=== PATIENT | male | born 1940 | race Caucasian/White ===

== ENCOUNTER 2016-03-21 17:37 | Inpatient (IN) | payer MEDICARE, OTHER ==
[~2016-03-21] VITALS: Ht 177.8 cm; Wt 119.0 kg
[2016-03-21 18:23] LABS: BASO # 0.1 x10^3/uL (0.0-0.2); BASO % 1 % (0-3); EOS % 4 % (0-3); HEMATOCRIT 42.9 % (39.0-53.0); HEMOGLOBIN 13.9 g/dL (13.0-17.5); LYMPH # 2.3 x10^3/uL (1.0-4.8); LYMPH % 25 % (24-48); MEAN CORPUSCULAR HEMOGLOBIN 30 pg (25-35); MEAN CORPUSCULAR HGB CONC 32 g/dL (31-37); MEAN CORPUSCULAR VOLUME 93 fL (79-100); MONO % 6 % (0-9); NEUT % 64 % (31-73); PLATELET COUNT 202 x10^3/uL (140-400); RED BLOOD COUNT 4.62 x10^6/uL (4.30-5.70); RED CELL DISTRIBUTION WIDTH 15.5 % (11.5-14.5); WHITE BLOOD COUNT 9.5 x10^3/uL (4.0-11.0)
[2016-03-21 18:33] LABS: CALCIUM 9.5 mg/dL (8.5-10.1); CREATININE 1.9 mg/dL (0.7-1.3); GFR 34.6; POTASSIUM 4.2 mmol/L (3.5-5.1)
[2016-03-21 18:36] LABS: POTASSIUM ISTAT 4.6 mmol/L (3.5-5.0)
[2016-03-21 18:39] LABS: ALBUMIN 3.1 g/dL (3.4-5.0); DIRECT BILIRUBIN 0.1 mg/dL (0.0-0.2); TOTAL BILIRUBIN 0.5 mg/dL (0.2-1.0); TOTAL PROTEIN 7.1 g/dL (6.4-8.2)
[2016-03-21] MEDS ORDERED: ASPIRIN 81 MG TAB.CHEW PO ONE (18:45)
[2016-03-21 18:53] LABS: INR 2.1 (0.8-1.1); PROTHROMBIN TIME PATIENT 22.4 SEC (11.7-14.0)
--- NOTE | 2016-03-21 18:55 | EKG ---
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
[2016-03-21] MEDS ORDERED: MORPHINE SULFATE 2 MG/ML DISP.SYRIN. IV PRN (19:15)
[2016-03-21] MEDS ORDERED: NITROGLYCERIN SUBLINGUAL 0.4 MG BOTTLE OF 25. SL PRN (19:15)
[2016-03-21] MEDS ORDERED: ONDANSETRON PF 4 MG/2 ML VIAL. IV PRN (19:15)
[2016-03-21 20:35] VITALS: BP 120/75
--- NOTE | 2016-03-21 21:05 | PHYS DOC ---
Past Medical History Past Medical History: CHF, Diabetes-Type II, High Cholesterol, Hypertension, Pneumonia Past Surgical History: Other Additional Past Surgical Histo: R LOBECTOMY Alcohol Use: Rarely Drug Use: None Adult General Chief Complaint Chief Complaint: WEAKNESS/GENERALIZED HPI HPI 75-year-old male presenting to the emergency department today with generalized weakness. He reports sitting on the kitchen stool feeling lightheaded and generally weak. He denied pain. He denies chest pain shortness of breath or abdominal pain. He denies focal weakness. Onset today around 1630. Duration constant No alleviating factors Worse with exertion. Review of Systems Review of Systems ROS negative for fevers chills cough neck stiffness. Negative for chest pain or shortness of breath. All other review of systems is negative unless otherwise noted in history of present illness. Current Medications Current Medications Current Medications Medications (Trade) Dose Ordered Sig/Janee Start Time Stop Time Status Last Admin Dose Admin Aspirin (Children'S Aspirin) 324 mg 1X ONCE 03/21/16 18:45 03/21/16 18:46 DC 03/21/16 18:32 324 MG Allergies Allergies Allergies Coded Allergies Type Severity Reaction Last Updated Verified niacin Allergy Intermediate 03/21/16 Yes sildenafil Allergy Intermediate 03/21/16 Yes Physical Exam Physical Exam Constitutional: Well developed, well nourished, no acute distress, non-toxic appearance. HENT: Normocephalic, atraumatic, bilateral external ears normal, oropharynx moist, no oral exudates, nose normal. [] Eyes: PERRLA, EOMI, conjunctiva normal, no discharge. Neck: Normal range of motion, no tenderness, supple, no stridor. [] Cardiovascular:Heart rate regular rhythm, no murmur Lungs & Thorax: Bilateral breath sounds clear to auscultation Abdomen: Bowel sounds normal, soft, no tenderness, no masses, no pulsatile masses. [] Skin: Warm, dry, no erythema, no rash. Back: No tenderness, no CVA tenderness. [] Extremities: No tenderness, no cyanosis, no clubbing, ROM intact, no edema. Neurologic: Alert and oriented X 3, normal motor function, normal sensory function, no focal deficits noted. [] Psychologic: Affect normal, judgement normal, mood normal. Current Patient Data Vital Signs Vital Signs Date Time Temp Pulse Resp B/P Pulse Ox O2 Delivery O2 Flow Rate FiO2 03/21/16 18:57 56 18 136/61 96 Room Air 03/21/16 17:37 97.5 97.5 Lab Values Laboratory Tests Test 03/21/16 18:05 03/21/16 18:17 03/21/16 18:18 White Blood Count 9.5x10^3/uL (4.0-11.0) Red Blood Count 4.62x10^6/uL (4.30-5.70) Hemoglobin 13.9g/dL (13.0-17.5) Hematocrit 42.9% (39.0-53.0) Mean Corpuscular Volume 93fL (79-100) Mean Corpuscular Hemoglobin 30pg (25-35) Mean Corpuscular Hemoglobin Concent 32g/dL (31-37) Red Cell Distribution Width 15.5% (11.5-14.5) H Platelet Count 202x10^3/uL (140-400) Neutrophils (%) (Auto) 64% (31-73) Lymphocytes (%) (Auto) 25% (24-48) Monocytes (%) (Auto) 6% (0-9) Eosinophils (%) (Auto) 4% (0-3) H Basophils (%) (Auto) 1% (0-3) Neutrophils # (Auto) 6.1x10^3uL (1.8-7.7) Lymphocytes # (Auto) 2.3x10^3/uL (1.0-4.8) Monocytes # (Auto) 0.6x10^3/uL (0.0-1.1) Eosinophils # (Auto) 0.4x10^3/uL (0.0-0.7) Basophils # (Auto) 0.1x10^3/uL (0.0-0.2) Prothrombin Time 22.4SEC (11.7-14.0) H Prothrombin Time INR 2.1 (0.8-1.1) H PTT 36SEC (24-38) Sodium Level 143mmol/L (136-145) Potassium Level 4.2mmol/L (3.5-5.1) Chloride Level 105mmol/L (98-107) Carbon Dioxide Level 28mmol/L (21-32) Anion Gap 10 (6-14) 15mmol/L (6-14) H Blood Urea Nitrogen 45mg/dL (8-26) H Creatinine 1.9mg/dL (0.7-1.3) H Estimated GFR (Cockcroft-Gault) 34.6 Glucose Level 153mg/dL (70-99) H 146mg/dL (70-99) H Calcium Level 9.5mg/dL (8.5-10.1) Total Bilirubin 0.5mg/dL (0.2-1.0) Direct Bilirubin 0.1mg/dL (0.0-0.2) Aspartate Amino Transferase (AST) 25U/L (15-37) Alanine Aminotransferase (ALT) 32U/L (16-63) Alkaline Phosphatase 115U/L (46-116) Troponin I Quantitative < 0.017ng/mL (0.000-0.055) ZC-Rzg-A-Type Natriuretic Peptide 675pg/mL (0-449) H Total Protein 7.1g/dL (6.4-8.2) Albumin 3.1g/dL (3.4-5.0) L Lipase 178U/L (73-393) POC Troponin I 0.04ng/ml (<0.08) POC Hemoglobin 15.0g/dL (14-18) POC Hematocrit 44% (37-52) POC Sodium 142mmol/L (135-145) POC Potassium 4.6mmol/L (3.5-5.0) POC Chloride 105mmol/L (98-110) POC Total CO2 27mmol/L (23-32) POC Blood Urea Nitrogen 56mg/dL (8-26) H POC Creatinine 1.8mg/dL (0.5-1.4) H POC Ionized Calcium (Muna) 1.15mmol/L (1.13-1.32) Laboratory Tests 03/21/16 18:05 Laboratory Tests 03/21/16 18:05 03/21/16 18:18 EKG EKG EKG shows left bundle branch block without previous for comparison. Irregularly irregular rhythm suggestive of A. fib. [place] is leftward. Intervals show prolonged QRS. ST segments show repolarization abnormalities within the reference range of normal limits with modified scarbossa criteria. Radiology/Procedures Radiology/Procedures Chest x-ray shows no obvious infiltrate or pneumothorax. Course & Med Decision Making Course & Med Decision Making Pertinent Labs and Imaging studies reviewed. (See chart for details) 75-year-old male presenting the emergency department with generalized weakness. EKG performed shows left bundle branch block without previous for comparison. Upon seeing this EKG I went to evaluate the patient. He denied chest pain shortness of breath or any atypical presentations of acute coronary syndrome. He was well-appearing and not diaphoretic. I paged Dr. Leong at 5:57 PM, we asked to get an old EKG from the OR where he receives healthcare at 1800. Dr. Leong returned our call at 1804 where we discussed the patient's clinical condition. Collectively, without any clinical presentation or signs of ACS in the context of a left bundle branch block with modified scarbossa neg. we felt that the patient's clinical presentation was not suggestive of acute coronary syndrome. The patient was given aspirin. At 1810 the request form for old EKG from the OR was signed by the patient and faxed. At 181 the patient's troponin came back negative. Otherwise the patient's vital signs were unremarkable. Physical exam was unremarkable. Blood work showed normal CBC with a elevated BUN and creatinine. Also elevation in proBNP. The patient was then admitted to our hospital for further evaluation workup and care. I placed a cardiology consultation. Dragon Disclaimer Dragon Disclaimer This electronic medical record was generated, in whole or in part, using a voice recognition dictation system. Departure Departure Impression: Primary Impression: Dehydration Additional Impression: Weakness Disposition: 09 ADMITTED INPATIENT Admitting Physician: Sam Roe Condition: STABLE Referrals: NO PCP (PCP) Problem Qualifiers MY ALEXIS MD Mar 21, 2016 21:05
[2016-03-21] MEDS ORDERED: DEXT4TAB PO (21:46)
[2016-03-21] MEDS ORDERED: ATOR40TA59 PO (21:46)
[2016-03-21] MEDS ORDERED: ALLO100T PO (21:46)
[2016-03-21] MEDS ORDERED: INSU100V13 SQ (21:46)
[2016-03-21] MEDS ORDERED: FURO20TA3 PO (21:46)
[2016-03-21] MEDS ORDERED: INSU100I17 SQ (21:46)
[2016-03-21] MEDS ORDERED: DOCU100C5 PO (21:46)
[2016-03-21] MEDS ORDERED: WARF5TAB7 PO (21:46)
[2016-03-21] MEDS ORDERED: GABA600T2 PO (21:46)
[2016-03-21] MEDS ORDERED: LISI10TA2 PO (21:46)
[2016-03-21] MEDS ORDERED: TAMS0.4C2 PO (21:46)
[2016-03-21] MEDS ORDERED: GABA-586 PO (21:46)
[2016-03-21] MEDS ORDERED: HYDR-2666 PO (21:46)
[2016-03-21] MEDS ORDERED: CARV25TA2 PO (21:46)
[2016-03-21 23:26] VITALS: BP 130/63
[2016-03-22] VITALS (9 sets, daily range): BP systolic 125–192; BP diastolic 54–86
[2016-03-22 01:37] LABS: BASO # 0.1 x10^3/uL (0.0-0.2); BASO % 1 % (0-3); EOS % 2 % (0-3); HEMATOCRIT 42.5 % (39.0-53.0); HEMOGLOBIN 13.6 g/dL (13.0-17.5); LYMPH # 2.5 x10^3/uL (1.0-4.8); LYMPH % 27 % (24-48); MEAN CORPUSCULAR HEMOGLOBIN 30 pg (25-35); MEAN CORPUSCULAR HGB CONC 32 g/dL (31-37); MEAN CORPUSCULAR VOLUME 94 fL (79-100); MONO % 7 % (0-9); NEUT % 64 % (31-73); PLATELET COUNT 194 x10^3/uL (140-400); RED BLOOD COUNT 4.54 x10^6/uL (4.30-5.70); RED CELL DISTRIBUTION WIDTH 15.6 % (11.5-14.5); WHITE BLOOD COUNT 9.5 x10^3/uL (4.0-11.0)
[2016-03-22 01:50] LABS: CREATININE 1.9 mg/dL (0.7-1.3); GFR 34.6; POTASSIUM 4.4 mmol/L (3.5-5.1)
--- NOTE | 2016-03-22 07:38 | RAD ---
EXAM: Chest, single view. HISTORY: Fatigue. COMPARISON: None. FINDINGS: Frontal views of the chest are obtained. There is linear atelectasis or scarring within the right upper lobe. There is bilateral basilar atelectasis. There is no consolidation, effusion or pneumothorax. The heart is upper normal in size for portable technique. IMPRESSION: Suspected linear atelectasis scarring within the right upper lobe and bilateral basilar atelectasis.
--- NOTE | 2016-03-22 09:32 | PDOC2 ---
URIELKELLY GAMBINO Marielena FINAL DRESSING CUTTER 03/22/16 0932: CARDIAC CONSULT DATE OF CONSULT Date of Consult DATE: 03/22/16 TIME: 09:29 REASON FOR CONSULT Reason for Consult: LBBB; weakness REFERRING PHYSICIAN Referring Physician: Dr. Anibal Velez SOURCE Source: Chart review, Patient HISTORY OF PRESENT ILLNESS HISTORY OF PRESENT ILLNESS 75 year old male who normally seeks care @ the [facility] and was treated there a month ago for acute CHF. He is unsure what type of CHF he has. Yesterday was preparing to eat a late brunch when he developed dizziness and weakness and suddenly leaned back in his bar stool. [place] like he would pass out but denies syncope. Previous similar episode on unknown date. Yesterday' s symptoms developed ~ 1630 and had not eaten or drunk liquids all day. Denies associated dyspnea, chest pain, lower extremity edema. Troponin levels have not been consistent with AMI and EKG reported with LBBB. No previous EKGs for comparison. NT-proBNP = 675. No further symptoms overnight. Primary concern now is notifying [facility] of his admission here to avoid denial of payment. Reason for Visit: weakness and LBBB PAST MEDICAL HISTORY Cardiovascular: CHF, HTN, Hyperlipidemia Pulmonary: Pulmonary embolus (with chronic anticoagulation ) CENTRAL NERVOUS SYSTEM: Other ([place] - untreated with CPAP) GI: No pertinent hx Heme/Onc: No pertinent hx Hepatobiliary: No pertinent hx Psych: No pertinent hx Musculoskeletal: Osteoarthritis Rheumatologic: No pertinent hx Infectious disease: No pertinent hx ENT: No pertinent hx Renal/: No pertinent hx Endocrine: Diabetes PAST SURGICAL HISTORY Past Surgical History: Cataract Removal (with IOL), Total knee replacement ( left), Other (right lobectomy after pneumonia) FAMILY HISTORY Family History: Coronary Artery Disease (father of suspected NC; with previous NC) SOCIAL HISTORY Smoke: No ALCOHOL: none Drugs: None Lives: Friends (Natasha, significant other) CURRENT MEDICATIONS CURRENT MEDICATIONS Current Medications Medications (Trade) Dose Ordered Sig/Janee Route PRN Reason Start Time Stop Time Status Last Admin Dose Admin Aspirin (Children'S Aspirin) 324 mg 1X ONCE PO 03/21/16 18:45 03/21/16 18:46 DC 03/21/16 18:32 ALLERGIES ALLERGIES: Coded Allergies: niacin (Verified Allergy, Intermediate, 03/21/16) sildenafil (Verified Allergy, Intermediate, 03/21/16) ROS General: No: Appetite, Chills, Fatigue, Malaise, Night Sweats, Other PSYCHOLOGICAL ROS: YES: Sleep disturbances Eyes: No Blurry vision, No Decreased vision, No Double vision, No Dry eyes, No Excessive tearing, No Eye Pain, No Itchy Eyes, No Loss of vision, No Other, No Photophobia, No Scotomata, No Uses contacts, No Uses glasses HEENT: No: Epistaxis, Heacaches, Hearing change, Nasal congestion, Nasal discharge, Oral lesions, Other, Sinus pain, Sneezing, Snoring, Sore Throat, Tinnitus, Vertigo, Visual Changes, Vocal changes ALLERGY AND IMMUNOLOGY: No: Hives, Insect Bite Sensitivity, Itchy/Watery Eyes, Nasal Congestion, Other, Post Nasal Drip, Seasonal Allergies Hematological and Lymphatic: No: Bleeding Problems, Blood Clots, Blood Transfusions, Brusing, Night Sweats, Other, Pallor, Swollen Lymph Nodes ENDOCRINE: No: Breast Changes, Galactorrhea, Hair Pattern Changes, Hot Flashes , Malaise/lethargy, Mood Swings, Other, Palpitations, Polydipsia/polyuria, Skin Changes, Temperature Intolerance, Unexpected Weight Changes Respiratory: YES: SOB with excertion, No: Cough, Hemoptysis, Orthopnea, Other, Pleuritic Pain, Shortness of breath , Sputum Changes, Stridor, Tachypnea, Wheezing Cardiovascular: No Chest Pain, No Edema, No Lt Headedness, No Orthopnea, No Other, No Palpitations, No Paroxysmal Noc. Dyspnea Gastrointestinal: No Abdominal Pain, No Constipation, No Diarrhea, No Hematochezia, No Melena, No Nausea, No Other, No Vomiting Genitourinary: No Discharge, No Dysuria, No Flank Pain, No Frequency, No Hematuria, No Incontinence, No Other, No Pain, No Retention, No Urgency Musculoskeletal: No Gait Disturbance, No Joint Pain, No Joint Stiffness, No Joint Swelling, No Muscle Pain, No Muscular Weakness, No Other, No Pain In:, No Swelling In: Neurological: Yes Dizziness, Yes Weakness Skin: No Acne, No Dry Skin, No Eczema, No Hair Changes, No Lumps, No Mole Changes, No Mottling, No Nail Changes, No Other, No Pruritus, No Rash, No Skin Lesion Changes PHYSICAL EXAM General: Alert, Oriented X3, Cooperative, No acute distress HEENT: Atraumatic, PERRLA Lungs: Clear to auscultation, Normal air movement Heart: Regular rate, Normal S1, Normal S2, Other (1-2/6 systolic murmur - likely aortic) Abdomen: Normal bowel sounds, Soft Extremities: No edema, Normal pulses Skin: Other (venous stasis changes bilateral LE) Psych/Mental Status: Mental status NL, Mood NL MUSCULOSKELETAL: No deformity VITALS VITALS Vital Signs Date Time Temp Pulse Resp B/P Pulse Ox O2 Delivery O2 Flow Rate FiO2 03/22/16 07:15 Room Air 03/22/16 07:00 98.3 63 20 192/86 94 98.3 LABS Lab: Laboratory Tests Test 03/21/16 18:05 03/21/16 18:17 03/21/16 18:18 03/22/16 01:07 White Blood Count 9.5x10^3/uL (4.0-11.0) 9.5x10^3/uL (4.0-11.0) Red Blood Count 4.62x10^6/uL (4.30-5.70) 4.54x10^6/uL (4.30-5.70) Hemoglobin 13.9g/dL (13.0-17.5) 13.6g/dL (13.0-17.5) Hematocrit 42.9% (39.0-53.0) 42.5% (39.0-53.0) Mean Corpuscular Volume 93fL (79-100) 94fL (79-100) Mean Corpuscular Hemoglobin 30pg (25-35) 30pg (25-35) Mean Corpuscular Hemoglobin Concent 32g/dL (31-37) 32g/dL (31-37) Red Cell Distribution Width 15.5% (11.5-14.5) 15.6% (11.5-14.5) Platelet Count 202x10^3/uL (140-400) 194x10^3/uL (140-400) Neutrophils (%) (Auto) 64% (31-73) 64% (31-73) Lymphocytes (%) (Auto) 25% (24-48) 27% (24-48) Monocytes (%) (Auto) 6% (0-9) 7% (0-9) Eosinophils (%) (Auto) 4% (0-3) 2% (0-3) Basophils (%) (Auto) 1% (0-3) 1% (0-3) Neutrophils # (Auto) 6.1x10^3uL (1.8-7.7) 6.0x10^3uL (1.8-7.7) Lymphocytes # (Auto) 2.3x10^3/uL (1.0-4.8) 2.5x10^3/uL (1.0-4.8) Monocytes # (Auto) 0.6x10^3/uL (0.0-1.1) 0.7x10^3/uL (0.0-1.1) Eosinophils # (Auto) 0.4x10^3/uL (0.0-0.7) 0.2x10^3/uL (0.0-0.7) Basophils # (Auto) 0.1x10^3/uL (0.0-0.2) 0.1x10^3/uL (0.0-0.2) Prothrombin Time 22.4SEC (11.7-14.0) Prothromb Time International Ratio 2.1 (0.8-1.1) Activated Partial Thromboplast Time 36SEC (24-38) Sodium Level 143mmol/L (136-145) 141mmol/L (136-145) Potassium Level 4.2mmol/L (3.5-5.1) 4.4mmol/L (3.5-5.1) Chloride Level 105mmol/L (98-107) 103mmol/L (98-107) Carbon Dioxide Level 28mmol/L (21-32) 29mmol/L (21-32) Anion Gap 10 (6-14) 15mmol/L (6-14) 9 (6-14) Blood Urea Nitrogen 45mg/dL (8-26) 49mg/dL (8-26) Creatinine 1.9mg/dL (0.7-1.3) 1.9mg/dL (0.7-1.3) Estimated GFR (Cockcroft-Gault) 34.6 34.6 Glucose Level 153mg/dL (70-99) 146mg/dL (70-99) 234mg/dL (70-99) Calcium Level 9.5mg/dL (8.5-10.1) 9.0mg/dL (8.5-10.1) Total Bilirubin 0.5mg/dL (0.2-1.0) Direct Bilirubin 0.1mg/dL (0.0-0.2) Aspartate Amino Transf (AST/SGOT) 25U/L (15-37) Alanine Aminotransferase (ALT/SGPT) 32U/L (16-63) Alkaline Phosphatase 115U/L (46-116) Troponin I Quantitative < 0.017ng/mL (0.000-0.055) < 0.017ng/mL (0.000-0.055) AZ-Lgj-T-Type Natriuretic Peptide 675pg/mL (0-449) Total Protein 7.1g/dL (6.4-8.2) Albumin 3.1g/dL (3.4-5.0) Lipase 178U/L (73-393) Bedside Troponin I 0.04ng/ml (<0.08) Bedside Hemoglobin 15.0g/dL (14-18) Bedside Hematocrit 44% (37-52) Bedside Sodium 142mmol/L (135-145) Bedside Potassium 4.6mmol/L (3.5-5.0) Bedside Chloride 105mmol/L (98-110) Bedside Total CO2 27mmol/L (23-32) Bedside Blood Urea Nitrogen 56mg/dL (8-26) Bedside Creatinine 1.8mg/dL (0.5-1.4) Bedside Ionized Calcium (Muna) 1.15mmol/L (1.13-1.32) Test 03/22/16 07:00 03/22/16 07:25 Troponin I Quantitative < 0.017ng/mL (0.000-0.055) Glucose (Fingerstick) 163mg/dL (70-99) IMAGES IMAGES CXR: FINDINGS: Frontal views of the chest are obtained. There is linear atelectasis or scarring within the right upper lobe. There is bilateral basilar atelectasis. There is no consolidation, effusion or pneumothorax. The heart is upper normal in size for portable technique. IMPRESSION: Suspected linear atelectasis scarring within the right upper lobe and bilateral basilar atelectasis. ASSESSMENT/PLAN ASSESSMENT/PLAN 1. weakness and dizziness ? dehydration: BUN = 45; Cr = 1.9 treated with diuretics for CHF and with poor food/fluid intake check orthostatics echo to evaluate LV function request records from [facility] - [facility] 2. LBBB ? new - is so would need further evaluation awaiting records [facility] 3. CHF by history ? diastolic BP currently uncontrolled and will restart BB and ACEI hold diuretics today echo to evaluate LVEF and assess for diastolic dysfunction 4. HTN restart home meds 5. HLD continue home statin therapy will not check FLP until records from [facility] reviewed 6. remote history of pulmonary embolus remains on OAC with warfarin - therapeutic INR 7. IBETH vs CKD elevated BUN/Cr ? related to diuretic therapy Problems: LARRY ENCARNACION MD 03/22/16 1556: CARDIAC CONSULT ALLERGIES ALLERGIES: Coded Allergies: niacin (Verified Allergy, Intermediate, 03/21/16) sildenafil (Verified Allergy, Intermediate, 03/21/16) ASSESSMENT/PLAN ASSESSMENT/PLAN Patient seen and examined. Agree with WASTE OIL PUMPER's assessment and plan. Dizziness and weakness appeared to be secondary to dehydration. Check orthostatics, hold diuretics and continue intravenous fluids. Chronic diastolic heart failure clinically well compensated. We will obtain 2-D echocardiogram to rule out any structural abnormalities. Thank you for your consultation. Problems: KELLY LIZARRAGA APRN Mar 22, 2016 09:32 LARRY ENCARNACION MD Mar 22, 2016 15:56
[2016-03-22] MEDS ORDERED: DOCUSATE SODIUM 100 MG CAPSULE PO PRN (09:45)
[2016-03-22] MEDS ORDERED: HYDROCODONE/APAP 5/325MG TABLET. PO PRN (09:45)
[2016-03-22] MEDS ORDERED: DEXTROSE 4 GM PO PRN (09:45)
[2016-03-22] MEDS ORDERED: DEXTROSE 50% 25 GM / 50ML DISP.SYRIN. IV PRN (10:00)
[2016-03-22] MEDS ORDERED: LISINOPRIL 10 MG TABLET PO SCH (10:00)
[2016-03-22] MEDS: TAMSULOSIN 0.4 MG CAP.ER.24H. PO SCH (10:12)
[2016-03-22] MEDS: LISINOPRIL 10 MG TABLET PO SCH (10:12)
[2016-03-22] MEDS: ALLOPURINOL 100 MG TABLET. PO SCH (10:12)
[2016-03-22] MEDS: GABAPENTIN 300 MG CAPSULE. PO SCH ×2 (10:14→16:06)
[2016-03-22] MEDS: CARVEDILOL 12.5 MG TABLET PO SCH ×2 (10:14→17:09)
[2016-03-22] MEDS: INSULIN ASPART 300 UNITS/3 ML INSULN.PEN SQ SCH ×3 (12:04→21:27)
[2016-03-22] MEDS ORDERED: WARFARIN 5 MG TABLET. PO SCH (16:00)
--- NOTE | 2016-03-22 16:54 | CARD ---
APPROVED REPORT EXAM: Two-dimensional and M-mode echocardiogram with Doppler and color Doppler. Other Information Quality : Fair INDICATION Dizziness and Vertigo Congestive Heart Failure 2D DIMENSIONS RVDd3.3 (2.9-3.5cm)Left Atrium(2D)4.6 (1.6-4.0cm) IVSd1.5 (0.7-1.1cm)Aortic Root(2D)3.0 (2.0-3.7cm) LVDd5.0 (3.9-5.9cm)LVOT Diameter2.1 (1.8-2.4cm) PWd1.2 (0.7-1.1cm)LVDs3.2 (2.5-4.0cm) FS (%) 30.0 %SV78.1 ml LVEF(%)60.0 (>50%) Aortic Valve AoV Peak Russell.271.3cm/sAoV VTI58.2cm AO Peak GR.29.4mmHgLVOT Peak Russell.124.7cm/s LVOT VTI 29.15cmAO Mean GR.18mmHg KAUSHIK (VMAX)1.99ku5PKA (VTI)1.77cm2 AI P 1/2 Cybu712ae Mitral Valve MV E Ghocefyf12.7cm/sMV DECEL [id number] MV A Mzluuxcd466.0cm/sMV MVD317yv E/A Ratio0.9MVA (PHT)2.13cm2 TDI E/Lateral E'18.0E/Medial E'24.0 Tricuspid Valve TR P. Lqthzcxt139nq/sRAP MATIYBQH1utYr TR Peak Gr.81dzQzQSLM83yxXo Pulmonary Vein S1 Zmwhrepo07.3cm/sD2 Tjcovmla62.8cm/s PVa [id number] LEFT VENTRICLE The left ventricle is normal size. There is mild to moderate concentric left ventricular hypertrophy. The left ventricular systolic function is normal. The Ejection Fraction is 55-60%. There is normal L V segmental wall motion. Transmitral Doppler flow pattern is Grade I-abnormal relaxation pattern. RIGHT VENTRICLE The right ventricle is normal size. The right ventricular systolic function is normal. ATRIA The left atrium is mildly dilated. The right atrium size is normal. The interatrial septum is intact with no evidence for an atrial septal defect or patent foramen ovale as noted on 2-D or Doppler imagi ng. AORTIC VALVE The aortic valve is heavily calcified and displays decreased opening. Doppler and Color Flow revealed moderate aortic regurgitation. Calculated aortic valve area is 1.8 cm2 with maximum pressure gradien t of 28 mmHg and mean pressure gradient of 16 mmHg. Doppler and color-flow analysis revealed mild aor tic stenosis. MITRAL VALVE The mitral valve is moderately thickened. There is no evidence of mitral valve prolapse. There is no mitral valve stenosis. Doppler and Color-flow revealed mild mitral regurgitation. TRICUSPID VALVE The tricuspid valve is normal in structure and function. Doppler and Color Flow revealed mild tricusp id regurgitation. There is no pulmonary hypertension. The PA pressure was estimated at 21 mmHg. There is no tricuspid valve stenosis. PULMONIC VALVE The pulmonary valve is normal in structure and function. Doppler and Color Flow revealed no pulmonic valvular regurgitation. There is no pulmonic valvular stenosis. GREAT VESSELS The aortic root is normal in size. The ascending aorta is normal in size. The IVC is normal in size a nd collapses >50% with inspiration. PERICARDIAL EFFUSION There is no evidence of significant pericardial effusion. Critical Notification Critical Value: No <Conclusion> The left ventricular systolic function is normal. The Ejection Fraction is 55-60%. There is normal LV segmental wall motion. Transmitral Doppler flow pattern is Grade I-abnormal relaxation pattern. The left atrium is mildly dilated. Mild aortic stenosis. Moderate aortic regurgitation. Mild mitral regurgitation. Mild tricuspid regurgitation. There is no pulmonary hypertension. The PA pressure was estimated at 21 mmHg. There is no evidence of significant pericardial effusion.
[2016-03-22] MEDS ORDERED: INSULIN DETEMIR 300 UNITS/3 ML INSULN.PEN. SQ SCH (17:00)
[2016-03-22] MEDS ORDERED: ATORVASTATIN CALCIUM 40 MG TABLET. PO SCH (21:00)
[2016-03-22] MEDS ORDERED: GABAPENTIN 300 MG CAPSULE. PO SCH (21:00)
[2016-03-22] MEDS ORDERED: NON FORMULARY ITEM (Carvedilol 1 TAB) PO SCH (21:00)
--- NOTE | 2016-03-22 22:44 | HP ---
ADMIT DATE: 03/22/2016 TIME: 10 a.m. CHIEF COMPLAINT: Generalized weakness, near syncope. HISTORY OF PRESENT ILLNESS: A 75-year-old male patient with prior history of questionable CHF, hypertension, hyperlipidemia, presented to the ER with complaints of near syncope and dizziness. The patient was about to eat his lunch and developed sudden dizziness and also periodic sweating. He denies any chest pain or shortness of breath or syncope; however, he is about to pass out. He admitted that he did not take lot of fluids whole day. His symptoms started around evening ____. The patient was admitted to the hospital nearly [address] [facility] and he was treated for pneumonia and also diagnosed with questionable CHF. PAST MEDICAL HISTORY: Hypertension; hyperlipidemia; pulmonary embolus, on oral anticoagulation; obstructive sleep apnea. PAST SURGICAL HISTORY: Cataract removal, total knee replacement, right lobectomy. FAMILY HISTORY: Coronary artery disease. SOCIAL HISTORY: No smoking, no alcohol, no drug abuse. HOME MEDICATIONS: Reviewed, reconciled. Please see the MRAD. ALLERGIES: NIACIN AND SILDENAFIL. REVIEW OF SYSTEMS: CONSTITUTIONAL: No fever or chills. EYES: No recent vision changes. SKIN: No rash or itching. CARDIOVASCULAR: Dizziness. RESPIRATORY: No shortness of breath, cough. GASTROINTESTINAL: No nausea, vomiting, diarrhea or abdominal pain. NEUROLOGICAL: No headache, paralysis. ENDOCRINOLOGIC: No cold or heat intolerance. GENITOURINARY: No burning with urination, no urgency. MUSCULOSKELETAL: No back pain or joint pain. LYMPHATICS: No enlarged nodes. PSYCHIATRIC: No anxiety or depression. PHYSICAL EXAMINATION: GENERAL: No apparent distress. VITAL SIGNS: Temperature 98.3, pulse 63, respirations ____ blood pressure ____ pulse ox 94. HEENT: Head normocephalic, atraumatic. NECK: Supple. LUNGS: Clear to auscultation. HEART: S1, S2 present, pulses equal in all extremities, no JVD. ABDOMEN: Soft and positive bowel sounds. EXTREMITIES: Varicose veins present bilateral. +1 edema present. NEUROLOGIC: Normal speech and normal tone; alert and oriented. PSYCHIATRIC: Normal affect, normal mood. SKIN: No ulceration. LABORATORY FINDINGS: Sodium 143, potassium 4.2, chloride is 105, carbon dioxide 28, BUN is 45, creatinine 1.9, glucose is 153. Hematology: WBC is 9.5, hemoglobin is 13.9, MCV is 93, platelets 202. IMAGING STUDIES: Chest x-ray: Suspected linear atelectasis, scarring in right upper lobe and bilateral basilar atelectasis. EKG: Could not able to verify the reports. As per ER report, LBBB. ASSESSMENT AND PLAN: 1. Generalized weakness and dizziness, unclear etiology, possible due to dehydration and decreased oral intake. 2. Left bundle branch block on EKG, not sure if new or old. 3. Hypertension, stable. 4. Hyperlipidemia. 5. Oral anticoagulation for chronic pulmonary embolism. 6. Acute kidney injury. PLAN: 1. We will hold patient's Lasix at this time and encourage him to take more oral fluids. 2. Cardiology has been consulted. Trying to obtain records from [facility] especially EKG and other echocardiogram. 3. Also, we will place an order for new echocardiogram today. 4. The patient will get 2 more sets of troponins. 5. The patient is on telemetry. 6. We will start him on oral anticoagulation and pharmacy to monitor his INR, therapeutic dose is 2-3. 7. The patient's creatinine is 1.9 and we will continue to monitor and we will hold Lasix at this time. We will check creatinine and BMP in a.m. 8. ____ hyperglycemia around 234 ____ he is not taking any medications. So, we will continue to monitor. Plan explained to the patient and his at bedside. All questions answered. ELLA BELL MD DR: DEANGELO/bryan JOB#: [id number] / [id number]
[2016-03-23 03:00] VITALS: BP 143/62
[2016-03-23 07:00] VITALS: BP 173/69
[2016-03-23] MEDS: INSULIN ASPART 300 UNITS/3 ML INSULN.PEN SQ SCH ×3 (08:00→12:00)
[2016-03-23] MEDS: TAMSULOSIN 0.4 MG CAP.ER.24H. PO SCH (08:18)
[2016-03-23] MEDS: GABAPENTIN 300 MG CAPSULE. PO SCH (08:18)
[2016-03-23] MEDS: ALLOPURINOL 100 MG TABLET. PO SCH (08:18)
[2016-03-23] MEDS: LISINOPRIL 10 MG TABLET PO SCH (08:19)
[2016-03-23] MEDS: CARVEDILOL 12.5 MG TABLET PO SCH (08:20)
[2016-03-23 11:00] VITALS: BP 179/77
--- NOTE | 2016-03-23 11:46 | PDOC ---
CARDIO Progress Notes Date and Time Date of Service 03/23/16 Time of Evaluation 1130 Subjective Subjective: No Chest Pain, No shortness of breath, No Palpitations Vitals Vitals Vital Signs Date Time Temp Pulse Resp B/P Pulse Ox O2 Delivery O2 Flow Rate FiO2 03/23/16 08:20 68 173/69 03/23/16 07:20 Room Air 03/23/16 07:00 98.1 18 96 98.1 Weight Weight [ ] Input and Output Intake and Output Intake and Output 03/23/16 07:00 Intake Total 700 ml Balance 700 ml Intake Oral 700 ml # Voids 3 # Bowel Movements 2 Laboratory Labs Laboratory Tests Test 03/22/16 11:52 03/22/16 16:58 03/22/16 20:16 03/23/16 07:27 Glucose (Fingerstick) 243mg/dL (70-99) 228mg/dL (70-99) 272mg/dL (70-99) 117mg/dL (70-99) Physical Exam HEENT: Neck Supple W Full Motion Chest: Symmetric LUNGS: Clear to Auscultation Heart: S1S2, RRR, murmurs (2/6 systolic murmur ) Abdomen: Soft N/T Extremities: No Edema, Other (venous stasis changes to bilateral LE) Neurology: alert, oriented, follow commands Assessment Assessment 1. weakness and dizziness secondary to dehydration; treated with diuretics for CHF and with poor food/ fluid intake no orthostasis noted echo revealed LVEF of 55-60% with moderate MR. records from [facility] obtain - see below. 2. LBBB LBBB noted on EKG completed at [facility] 02/16/16. Underwent MPI notable for no evidence of stress induced ischemia or infarct. no further cardiac workup warranted at this time 3. Chronic diastolic HF clinically well compensated. continue with optimization therapy. echo with preserved EF 4. HTN labile. Increase CAMILO 5. HLD statin therapy 6. remote history of pulmonary embolus remains on OAC with warfarin - therapeutic INR 7. IBETH vs CKD secondary to dehydration Review of [facility] records 02/16/16 LBBB new for prior EKG in 2012. NM Myocardial Scan (rest and stress) 1. no evidence of stress induced ischemia or infarct. The previously seen anteroseptal defect oft he LV is not appreciated. 2. Enlarged LV with borderline decreased systolic, LVEF 48%. Echo - Moderate LVH - LV systolic function preserved with an estimated EF of 55-60% - Normal LV wall motion - Mild MR, MS, AR. - Moderate - Diastolic dysfunction with severly elevated left atrial pressures at 55-60 mmHg. Lasix was increased to 40mg po daily with a FR of 1500cc per day. JUSTINE NOVAK APRN Mar 23, 2016 11:46
[2016-03-23] MEDS ORDERED: FUROSEMIDE 20 MG/2 ML VIAL IVP ONE (12:00)
== END 2016-03-23 15:45 | disposition home or self-care (01) | DRG 683 ==
LOC: ER 17:37 → 4 NORTH 19:02
PROVIDERS: ADMIT Internal Medicine; ATTEND Internal Medicine
DX: N17.9 Acute kidney failure, unspecified (principal); I27.82 Chronic pulmonary embolism; I50.32 Chronic diastolic (congestive) heart failure; I13.0 Hypertensive heart and chronic kidney disease with heart failure and stage 1 through stage 4 chronic kidney disease, or unspecified chronic kidney disease; E86.0 Dehydration; E11.9 Type 2 diabetes mellitus without complications; E78.00 Pure hypercholesterolemia, unspecified; E78.5 Hyperlipidemia, unspecified; N18.9 Chronic kidney disease, unspecified; Z96.652 Presence of left artificial knee joint; G47.33 Obstructive sleep apnea (adult) (pediatric); I44.7 Left bundle-branch block, unspecified; M19.90 Unspecified osteoarthritis, unspecified site; Z79.01 Long term (current) use of anticoagulants; Z82.49 Family history of ischemic heart disease and other diseases of the circulatory system; Z88.8 Allergy status to other drugs, medicaments and biological substances; Z98.49 Cataract extraction status, unspecified eye; Z87.01 Personal history of pneumonia (recurrent)
CPT/HCPCS: 36415; 71010; 80047; 80048; 80076; 82947; 83690; 83880; 84484; 85027; 85610; 85730; 93005; 93306; J1815; 99285-25

== ENCOUNTER 2018-09-24 20:39 | Emergency (ER) | payer MEDICARE ==
[~2018-09-24] VITALS: Ht 175.3 cm; Wt 125.2 kg
[~2018-09-24 20:39] MED LIST: ALLO100T PO; ATOR40TA59 PO; CARV25TA2 PO; DOCU100C28 PO; FURO20TA3 PO; GABA300C18 PO; GABA600T7 PO; HYDR-2761 PO; INSU100I17 SQ; INSU100V13 SQ; LISI10TA2 PO; TAMS0.4C2 PO; WARF-31 PO; [UNRECOGNIZED DRUG - CODE] PO
[2018-09-24 21:32] LABS: BASO # 0.1 x10^3/uL (0.0-0.2); BASO % 1 % (0-3); EOS # 0.3 x10^3/uL (0.0-0.7); EOS % 5 % (0-3); HEMATOCRIT 32.6 % (39.0-53.0); HEMOGLOBIN 10.5 g/dL (13.0-17.5); LYMPH % 31 % (24-48); MEAN CORPUSCULAR HEMOGLOBIN 31 pg (25-35); MEAN CORPUSCULAR HGB CONC 32 g/dL (31-37); MEAN CORPUSCULAR VOLUME 95 fL (79-100); MONO # 0.8 x10^3/uL (0.0-1.1); MONO % 12 % (0-9); NEUT # 3.2 x10^3/uL (1.8-7.7); NEUT % 50 % (31-73); PLATELET COUNT 136 x10^3/uL (140-400); RED BLOOD COUNT 3.43 x10^6/uL (4.30-5.70); RED CELL DISTRIBUTION WIDTH 15.7 % (11.5-14.5); WHITE BLOOD COUNT 6.4 x10^3/uL (4.0-11.0)
[2018-09-24 21:35] LABS: PROTHROMBIN TIME PATIENT 20.6 SEC (11.7-14.0)
--- NOTE | 2018-09-24 21:46 | RAD ---
AP chest x-ray HISTORY: Shortness of breath. COMPARISON: Chest x-ray March 2016. FINDINGS: Prominent cardiomegaly the size of the heart is larger relative to the prior exam, although some enlargement could be artificial due to rightward rotation of the patient on the current study, a true interval enlargement is suspected.. No pneumothorax. Mild elevation of the right diaphragm is stable. Fissural thickening is stable. Focal pleural thickening at the left lateral diaphragm are miniscule volume of chronic pleural fluid is stable. Bones are unremarkable. IMPRESSION: Prominent cardiomegaly, the size of the heart is larger relative to prior x-rays, true interval enlargement due to dilated cardiomyopathy or pericardial effusion are possibilities. See discussion above. Electronically signed by: Rudy Grande MD (09/24/2018 9:43 PM) [facility]
[2018-09-24 22:40] LABS: CALCIUM 8.9 mg/dL (8.5-10.1); CREATININE 2.3 mg/dL (0.7-1.3); GFR 27.6; POTASSIUM 4.4 mmol/L (3.5-5.1)
[2018-09-24 22:45] LABS: ALBUMIN 2.9 g/dL (3.4-5.0); ALBUMIN/GLOBULIN RATIO 0.8 (1.0-1.7); TOTAL BILIRUBIN 0.3 mg/dL (0.2-1.0); TOTAL PROTEIN 6.7 g/dL (6.4-8.2)
[2018-09-24] MEDS ORDERED: INSULIN REGULAR 100 UNIT/ML 3ML VIAL. IV ONE (23:45)
[2018-09-25 00:17] LABS: BILIRUBIN,URINE NEGATIVE (NEG); CLARITY,URINE CLEAR; COLOR,URINE YELLOW; NITRITE,URINE NEGATIVE (NEG); PROTEIN,URINE >=300 mg/dL (NEG-TRACE); UROBILINOGEN,URINE 0.2 mg/dL (0.2 mg/dL)
[2018-09-25 00:25] LABS: AMORPHOUS SEDIMENT,UR PRESENT /HPF; BACTERIA,URINE 0 /HPF (0-FEW); GRANULAR CASTS,URINE OCCASIONAL /HPF; HYALINE CASTS, URINE FEW /HPF; RBC,URINE OCC /HPF (0-2); SQUAMOUS EPITHELIAL CELL,UR OCC /LPF; WBC,URINE OCC /HPF (0-4)
--- NOTE | 2018-09-25 01:38 | PHYS DOC ---
Past Medical History Past Medical History: CHF, Diabetes-Type II, High Cholesterol, Hypertension, Pneumonia Past Surgical History: Other Additional Past Surgical Histo: R LOBECTOMY Alcohol Use: Rarely Drug Use: None Adult General Chief Complaint Chief Complaint: ALTERED MENTAL STATUS HPI HPI Patient is a 78 year old male who presents the emergency room with chief complaint of brought in by ambulance with slow heart rate. Heart rate was in the high 40s low 50s they were not used to this at [facility] of a centimeter to the emergency room for evaluation this study was a little sleepier than normal earlier however that seems to have resolved he is currently alert and oriented 4 he denies any chest pain or shortness of breath he currently says he actually feels pretty good overall he recently was at the [facility] for diuresis they took 3 L off he got back to [facility] about 4 days ago. Review of Systems Review of Systems Constitutional: Denies fever or chills [] Eyes: Denies change in visual acuity, redness, or eye pain [] HENT: Denies nasal congestion or sore throat [] Musculoskeletal: Denies back pain or joint pain [] Integument: Denies rash or skin lesions [] Neurologic: Denies headache, focal weakness or sensory changes [] Endocrine: Denies polyuria or polydipsia [] All other systems were reviewed and found to be within normal limits, except as documented in this note. Current Medications Current Medications Current Medications Medications (Trade) Dose Ordered Sig/Janee Start Time Stop Time Status Last Admin Dose Admin Insulin Human Regular (HumuLIN R VIAL) 5 unit 1X ONCE 09/24/18 23:45 09/24/18 23:46 DC 09/25/18 00:35 5 UNIT Allergies Allergies Allergies Coded Allergies Type Severity Reaction Last Updated Verified niacin Allergy Intermediate 03/21/16 Yes sildenafil Allergy Intermediate 03/21/16 Yes Physical Exam Physical Exam Constitutional: Well developed, well nourished, no acute distress, non-toxic appearance. [] HENT: Normocephalic, atraumatic, bilateral external ears normal, oropharynx moist, no oral exudates, nose normal. [] Eyes: PERRLA, EOMI, conjunctiva normal, no discharge. [] Neck: Normal range of motion, no tenderness, supple, no stridor. [] Cardiovascular:BRADYCARDIA NO DEFINITE MURMURS Lungs & Thorax: Bilateral breath sounds clear to auscultation [] Abdomen: Bowel sounds normal, soft, no tenderness, no masses, no pulsatile masses. [] Skin: Warm, dry, no erythema, no rash. [] Back: No tenderness, no CVA tenderness. [] Extremities: No tenderness, no cyanosis, no clubbing, ROM intact,ONE PLUS EDEMA Neurologic: Alert and oriented X 3, normal motor function, normal sensory function, no focal deficits noted. [] Psychologic: Affect normal, judgement normal, mood normal. [] Current Patient Data Vital Signs Vital Signs Date Time Temp Pulse Resp B/P (MAP) Pulse Ox O2 Delivery O2 Flow Rate FiO2 09/24/18 21:00 97.8 61 15 147/69 (95) 96 Room Air 97.8 Lab Values Laboratory Tests Test 09/24/18 21:10 09/24/18 22:15 09/25/18 00:08 White Blood Count 6.4 x10^3/uL (4.0-11.0) Red Blood Count 3.43 x10^6/uL (4.30-5.70) L Hemoglobin 10.5 g/dL (13.0-17.5) L Hematocrit 32.6 % (39.0-53.0) L Mean Corpuscular Volume 95 fL (79-100) Mean Corpuscular Hemoglobin 31 pg (25-35) Mean Corpuscular Hemoglobin Concent 32 g/dL (31-37) Red Cell Distribution Width 15.7 % (11.5-14.5) H Platelet Count 136 x10^3/uL (140-400) L Neutrophils (%) (Auto) 50 % (31-73) Lymphocytes (%) (Auto) 31 % (24-48) Monocytes (%) (Auto) 12 % (0-9) H Eosinophils (%) (Auto) 5 % (0-3) H Basophils (%) (Auto) 1 % (0-3) Neutrophils # (Auto) 3.2 x10^3/uL (1.8-7.7) Lymphocytes # (Auto) 2.0 x10^3/uL (1.0-4.8) Monocytes # (Auto) 0.8 x10^3/uL (0.0-1.1) Eosinophils # (Auto) 0.3 x10^3/uL (0.0-0.7) Basophils # (Auto) 0.1 x10^3/uL (0.0-0.2) Prothrombin Time 20.6 SEC (11.7-14.0) H Prothrombin Time INR 1.8 (0.8-1.1) H Sodium Level 142 mmol/L (136-145) Potassium Level 4.4 mmol/L (3.5-5.1) Chloride Level 105 mmol/L (98-107) Carbon Dioxide Level 27 mmol/L (21-32) Anion Gap 10 (6-14) Blood Urea Nitrogen 77 mg/dL (8-26) H Creatinine 2.3 mg/dL (0.7-1.3) H Estimated GFR (Cockcroft-Gault) 27.6 BUN/Creatinine Ratio 33 (6-20) H Glucose Level 379 mg/dL (70-99) H Calcium Level 8.9 mg/dL (8.5-10.1) Total Bilirubin 0.3 mg/dL (0.2-1.0) Aspartate Amino Transferase (AST) 56 U/L (15-37) H Alanine Aminotransferase (ALT) 73 U/L (16-63) H Alkaline Phosphatase 311 U/L (46-116) H Troponin I Quantitative < 0.017 ng/mL (0.000-0.055) MZ-Bhq-B-Type Natriuretic Peptide 2260 pg/mL (0-449) H Total Protein 6.7 g/dL (6.4-8.2) Albumin 2.9 g/dL (3.4-5.0) L Albumin/Globulin Ratio 0.8 (1.0-1.7) L Urine Collection Type Unknown Urine Color Yellow Urine Clarity Clear Urine pH 5.0 Urine Specific Marlin 1.020 Urine Protein >=300 mg/dL (NEG-TRACE) Urine Glucose (UA) 250 mg/dL (NEG) Urine Ketones (Stick) Negative mg/dL (NEG) Urine Blood Negative (NEG) Urine Nitrite Negative (NEG) Urine Bilirubin Negative (NEG) Urine Urobilinogen Dipstick 0.2 mg/dL (0.2 mg/dL) Urine Leukocyte Esterase Negative (NEG) Urine RBC Occ /HPF (0-2) Urine WBC Occ /HPF (0-4) Urine Squamous Epithelial Cells Occ /LPF Urine Amorphous Sediment Present /HPF Urine Bacteria 0 /HPF (0-FEW) Urine Hyaline Casts Few /HPF Urine Granular Casts Occasional /HPF Urine Mucus Mod /LPF Laboratory Tests 09/24/18 21:10 Laboratory Tests 09/24/18 22:15 EKG EKG []EKG shows a irregular rhythm probably A. fib with an underlying bundle branch block rate of 66 no STEMI was identified interpreted by me time of encounter Radiology/Procedures Radiology/Procedures [] Impressions: IMPRESSION: Prominent cardiomegaly, the size of the heart is larger relative to prior x-rays, true interval enlargement due to dilated cardiomyopathy or pericardial effusion are possibilities. See discussion above. Electronically signed by: Radha Grande MD (09/24/2018 9:43 PM) [facility] DICTATED and SIGNED BY: RADHA GRANDE MD DATE: 09/24/182142 Course & Med Decision Making Course & Med Decision Making Pertinent Labs and Imaging studies reviewed. (See chart for details) []History diabetes CHF hypertension status post recent admission [facility] the [facility] for fluid overload apparently good diuresis about 3 years he tells me Referred in from [facility] for basically essentially bradycardia he noticed a heart rate in the high 40s to 100 reevaluated. Apparently he thought he was a little out of it earlier however currently he is alert and oriented 4 in the emergency room. Patient is on 12.5 daily. Carvedilol. Does not know exactly when that dose was instituted however I think he could benefit from a little less I recommended at discharge instructions that he decrease the dose to 6.25 twice a day and follow-up with primary care doctor the next couple of days for reevaluation of heart rate. Noted the high blood sugar he is on a sliding scale at the nursing facility we did give him 1 dose of IV insulin the emergency room no evidence of anion gap acidosis. Patient's creatinine is basically near baseline is 2.3 baseline couple years back was 1.9 not unexpected given the recent significant diuresis. Chest x-ray noted the final read I think there is some rotation blood pressure is good he is really not short of breath in the emergency room, recommended continued follow-up with cardiology as scheduled. Heart rates in the emergency room are mostly in the mid 50s comes up to 60 when he sits up I talked to him. At worst WHEN sleeping it goes down into the high 40s but it comes right back up when he wakes up. [place] Disclaimer Dragon Disclaimer This electronic medical record was generated, in whole or in part, using a voice recognition dictation system. Departure Departure Impression: Primary Impression: Bradycardia Disposition: 03 TRANSFER SNF Condition: STABLE Patient Instructions: Bradycardia-Brief Additional Instructions: 1. decreased carvedilol from 12.5 bid to 6.25 bid, then call primary doctor on tuesday for a re-evaluation 2. use cpap at night. JOEL HADLEY MD Sep 25, 2018 01:38
[2018-09-25 01:57] VITALS: BP 142/65
--- NOTE | 2018-09-26 06:31 | EKG ---
[facility] [address] [place] [address] Test Date: 2018-09-24 Test Time: 20:51:15 Pat Name: BETINA ACUÑA Department: Room: Gender: M Rn Clinical Documentation: : 1940 Requested By: JOEL HADLEY Order Number: [id number] Reading MD: Measurements Intervals [place] Rate: 66 P: ID: QRS: -6 QRSD: 154 T: 102 QT: 482 QTc: 507 Interpretive Statements IRREGULAR RHYTHM, NO P-WAVE FOUND LEFTWARD AXIS NON SPECIFIC INTRAVENTRICULAR BLOCK ABNORMAL ECG RI6.01 Unconfirmed report No previous ECG available for comparison
== END 2018-09-25 01:52 | disposition home or self-care (01) ==
LOC: ER 20:39
DX: R00.1 Bradycardia, unspecified (principal); E11.9 Type 2 diabetes mellitus without complications; E78.00 Pure hypercholesterolemia, unspecified; I11.0 Hypertensive heart disease with heart failure; I50.9 Heart failure, unspecified; Z88.8 Allergy status to other drugs, medicaments and biological substances
CPT/HCPCS: 36415; 71045; 80053; 81001; 83880; 84484; 85025; 85610; 93005; 96374; 99285; J1815

== ENCOUNTER 2020-10-26 21:55 | Inpatient (IN) | payer MEDICARE, OTHER ==
[~2020-10-26] VITALS: Ht 175.3 cm; Wt 122.3 kg
[~2020-10-26 21:55] MED LIST changes: +ALPR0.5T6 PO; +AMLO-187 PO; +BUSP5TAB PO; +CALC667T4 PO; +CARV6.2511 PO; +CHOL10003 PO; +CLOP75TA PO; +DESV25TA7 PO; +DEXT4TAB20 PO; +FAMO20TA5 PO; +FERR325T14 PO; +FOLI1TAB16 PO; +FURO40TA4 PO; +GABA-689 PO; +INSU100I11 SQ; +INSU100I13 SQ; +INSU100V31 SQ; +LISI10TA16 PO; -LISI10TA2 PO; +LOSA-73 PO; +LOSA100T14 PO; +MINO2.5T12 PO; +NYST15PO9 TP; +PANT40TA77 PO; +SPIR25TA PO; +TEMA15CA6 PO; +WARF3TAB50 PO; -[UNRECOGNIZED DRUG - CODE] PO
[2020-10-26 22:37] LABS: BASO # 0.1 x10^3/uL (0.0-0.2); BASO % 1 % (0-3); EOS # 0.1 x10^3/uL (0.0-0.7); EOS % 1 % (0-3); HEMATOCRIT 25.6 % (39.0-53.0); HEMOGLOBIN 8.7 g/dL (13.0-17.5); LYMPH # 2.1 x10^3/uL (1.0-4.8); LYMPH % 18 % (24-48); MEAN CORPUSCULAR HEMOGLOBIN 38 pg (25-35); MEAN CORPUSCULAR HGB CONC 34 g/dL (31-37); MEAN CORPUSCULAR VOLUME 111 fL (79-100); MONO # 1.1 x10^3/uL (0.0-1.1); MONO % 10 % (0-9); NEUT # 8.2 x10^3/uL (1.8-7.7); NEUT % 70 % (31-73); PLATELET COUNT 228 x10^3/uL (140-400); RED CELL DISTRIBUTION WIDTH 17.4 % (11.5-14.5); WHITE BLOOD COUNT 11.7 x10^3/uL (4.0-11.0)
[2020-10-26 22:47] LABS: CALCIUM 9.2 mg/dL (8.5-10.1); CREATININE 7.6 mg/dL (0.7-1.3); GFR 6.9; POTASSIUM 5.1 mmol/L (3.5-5.1); PROTHROMBIN TIME PATIENT 26.8 SEC (11.7-14.0)
[2020-10-26 22:53] LABS: ALBUMIN 2.9 g/dL (3.4-5.0); ALBUMIN/GLOBULIN RATIO 0.8 (1.0-1.7); TOTAL BILIRUBIN 0.5 mg/dL (0.2-1.0); TOTAL PROTEIN 6.5 g/dL (6.4-8.2)
--- NOTE | 2020-10-26 22:58 | PHYS DOC ---
Past Medical History Past Medical History: A-Fib, CHF, Diabetes-Type II, High Cholesterol, Hypertension, Pneumonia, Renal Failure Additional Past Medical Histor: OA, [place], gout, BPH Past Surgical History: Other Additional Past Surgical Histo: R LOBECTOMY, fistula placement Smoking Status: Former Smoker Alcohol Use: Sober Drug Use: None General Adult EDM: Chief Complaint: BLOODY STOOL HPI: HPI: Patient is a 80 year old male with a past medical history atrial fibrillation CHF diabetes ESRD (MWF) presents for evaluation of rectal bleeding. Patient is on Coumadin for his atrial fibrillation and Hx of PE/DVT. Prior to arrival patient passed several large clots per rectum. Patient denies any associated abdominal pain. On exam patient has no complaints. Patients vital signs stable. Review of Systems: Review of Systems: Constitutional: Denies fever or chills. [] Eyes: Denies change in visual acuity. [] HENT: Denies nasal congestion or sore throat. [] Respiratory: Denies cough or shortness of breath. [] Cardiovascular: Denies chest pain or edema. [] GI: Denies abdominal pain, nausea, vomiting, bloody stools or diarrhea. [positive rectal bleeding] : Denies dysuria. [] Musculoskeletal: Denies back pain or joint pain. [] Integument: Denies rash. [] Neurologic: Denies headache, focal weakness or sensory changes. [] Endocrine: Denies polyuria or polydipsia. [] Lymphatic: Denies swollen glands. [] Psychiatric: Denies depression or anxiety. [] Heart Score: C/O Chest Pain: N/A Risk Factors: Risk Factors: DM, Current or recent (<one month) smoker, HTN, HLP, family history of CAD, obesity. Risk Scores: Score 0 - 3: 2.5% MACE over next 6 weeks - Discharge Home Score 4 - 6: 20.3% MACE over next 6 weeks - Admit for Clinical Observation Score 7 - 10: 72.7% MACE over next 6 weeks - Early Invasive Strategies Allergies: Allergies: Allergies Coded Allergies Type Severity Reaction Last Updated Verified sildenafil Allergy Intermediate 04/14/20 Yes lisinopril Adverse Reaction Intermediate itching 04/14/20 Yes niacin Adverse Reaction Intermediate itching 04/14/20 Yes Physical Exam: PE: Constitutional: Well developed, well nourished, no acute distress, non-toxic appearance. [] HENT: Normocephalic, atraumatic, bilateral external ears normal, oropharynx moist, no oral exudates, nose normal. [] Eyes: PERRLA, EOMI, conjunctiva normal, no discharge. [] Neck: Normal range of motion, no tenderness, supple, no stridor. [] Cardiovascular:Heart rate regular rhythm, no murmur [] Lungs & Thorax: Bilateral breath sounds clear to auscultation [] Abdomen: Bowel sounds normal, soft, no tenderness, no masses, no pulsatile masses. [Rectal exam-- several large clots BRIGHT RED BLOOD in diaper ] Skin: Warm, dry, no erythema, no rash. [] Back: No tenderness, no CVA tenderness. [] Extremities: No tenderness, no cyanosis, no clubbing, ROM intact, no edema. [] Neurologic: Alert and oriented X 3, normal motor function, normal sensory function, no focal deficits noted. [] Psychologic: Affect normal, judgement normal, mood normal. [] Current Patient Data: Labs: Laboratory Tests Test 10/26/20 22:25 White Blood Count 11.7 x10^3/uL (4.0-11.0) H Red Blood Count 2.30 x10^6/uL (4.30-5.70) L Hemoglobin 8.7 g/dL (13.0-17.5) L Hematocrit 25.6 % (39.0-53.0) L Mean Corpuscular Volume 111 fL (79-100) H Mean Corpuscular Hemoglobin 38 pg (25-35) H Mean Corpuscular Hemoglobin Concent 34 g/dL (31-37) Red Cell Distribution Width 17.4 % (11.5-14.5) H Platelet Count 228 x10^3/uL (140-400) Neutrophils (%) (Auto) 70 % (31-73) Lymphocytes (%) (Auto) 18 % (24-48) L Monocytes (%) (Auto) 10 % (0-9) H Eosinophils (%) (Auto) 1 % (0-3) Basophils (%) (Auto) 1 % (0-3) Neutrophils # (Auto) 8.2 x10^3/uL (1.8-7.7) H Lymphocytes # (Auto) 2.1 x10^3/uL (1.0-4.8) Monocytes # (Auto) 1.1 x10^3/uL (0.0-1.1) Eosinophils # (Auto) 0.1 x10^3/uL (0.0-0.7) Basophils # (Auto) 0.1 x10^3/uL (0.0-0.2) Platelet Estimate Pending Prothrombin Time 26.8 SEC (11.7-14.0) H Prothrombin Time INR 2.5 (0.8-1.1) H Activated Partial Thromboplast Time 60 SEC (24-38) H Sodium Level 139 mmol/L (136-145) Potassium Level 5.1 mmol/L (3.5-5.1) Chloride Level 99 mmol/L (98-107) Carbon Dioxide Level 33 mmol/L (21-32) H Anion Gap 7 (6-14) Blood Urea Nitrogen 60 mg/dL (8-26) H Creatinine 7.6 mg/dL (0.7-1.3) H Estimated GFR (Cockcroft-Gault) 6.9 BUN/Creatinine Ratio 8 (6-20) Glucose Level 173 mg/dL (70-99) H Calcium Level 9.2 mg/dL (8.5-10.1) Total Bilirubin Pending Aspartate Amino Transferase (AST) Pending Alanine Aminotransferase (ALT) Pending Alkaline Phosphatase Pending Total Protein Pending Albumin Pending Albumin/Globulin Ratio Pending Laboratory Tests 10/26/20 22:25 Laboratory Tests 10/26/20 22:25 Vital Signs: Vital Signs Date Time Temp Pulse Resp B/P (MAP) Pulse Ox O2 Delivery O2 Flow Rate FiO2 10/26/20 22:02 98.7 60 20 113/57 (68) 100 High Flow Nasal Cannula 3.0 98.7 EKG: EKG: [] Radiology/Procedures: Radiology/Procedures: [] Course & Med Decision Making: Course & Med Decision Making Pertinent Labs and Imaging studies reviewed. (See chart for details) [] Patient was evaluated for chief complaint. Work-up consisted of laboratory analysis. His old reviewed and discussed with patient and . Patient's hemoglobin found to be 8.7. His vital signs are all stable. Patient was typed and cross elected to transfuse 1 unit. Patient was admitted to the hospitalist with a GI and a nephrology consult. Dragon Disclaimer: Raysa Disclaimer: This electronic medical record was generated, in whole or in part, using a voice recognition dictation system. Departure Departure Impression: Primary Impression: Rectal bleeding Additional Impression: ESRD (end stage renal disease) Disposition: ADMITTED INPATIENT Condition: STABLE Referrals: NO PCP (PCP) EDGARDO WALL DO Oct 26, 2020 22:58
[2020-10-26 23:06] LABS: % BANDS 1 % (0-9); % BASOS 1 % (0-3); % LYMPHS 22 % (24-48); % MONOS 3 % (0-10); % SEGS 73 % (35-66); ANISOCYTOSIS SLIGHT; PLT ESTIMATE ADEQUATE (ADEQUATE); POLYCHROMASIA SLIGHT
[2020-10-26] MEDS ORDERED: ACETAMINOPHEN 325 MG TABLET. PO PRN (23:45)
[2020-10-26] MEDS ORDERED: diphenhydrAMINE ORAL ELIXIR 12.5 MG/5 ML ML PO PRN (23:45)
[2020-10-27] VITALS (37 sets, daily range): BP systolic 60–140; BP diastolic 37–70
[2020-10-27] MEDS ORDERED: ONDANSETRON PF 4 MG/2 ML VIAL. IVP PRN (00:45)
--- NOTE | 2020-10-27 02:52 | EKG ---
[facility] [address] [place] [address] Test Date: 2020-10-26 Test Time: 22:47:40 Pat Name: BETINA ACUÑA Department: Room: 6 Gender: M [employer] Operator: : 1940 Requested By: EDGARDO WALL Order Number: [id number] Reading MD: Measurements Intervals [place] Rate: 67 P: DE: QRS: 160 QRSD: 128 T: 70 QT: 448 QTc: 477 Interpretive Statements IRREGULAR RHYTHM, NO P-WAVE FOUND VENTRICULAR PREMATURE COMPLEX(ES) ABNORMAL RIGHT AXIS DEVIATION LOW LIMB LEAD VOLTAGE NON SPECIFIC INTRAVENTRICULAR BLOCK QRS(T) CONTOUR ABNORMALITY CONSISTENT WITH ANTEROSEPTAL INFARCT AGE UNDETERMINED CONSISTENT WITH HIGH LATERAL INFARCT PROBABLY OLD ABNORMAL ECG RI6.01 No previous ECG available for comparison
[2020-10-27] MEDS ORDERED: WARF-31 PO (03:01)
[2020-10-27] MEDS ORDERED: SEVE800T9 PO (03:09)
[2020-10-27] MEDS ORDERED: CYAN500T17 PO (03:09)
[2020-10-27] MEDS ORDERED: POLY2500 PO (03:09)
[2020-10-27] MEDS ORDERED: MIDO5TAB4 PO (03:09)
[2020-10-27] MEDS ORDERED: CALC667T4 PO (03:09)
[2020-10-27] MEDS ORDERED: SENN8.8S13 PO (03:09)
[2020-10-27] MEDS ORDERED: OMEP20CA16 PO (03:09)
[2020-10-27] MEDS ORDERED: ATOR40TA59 PO (03:09)
[2020-10-27] MEDS ORDERED: GABA300C18 PO (03:09)
[2020-10-27] MEDS ORDERED: PRIM50TA24 PO (03:09)
[2020-10-27] MEDS ORDERED: SERT25TA PO (03:09)
--- NOTE | 2020-10-27 04:21 | NUR ---
This RN had orders to transfuse blood, but pt's Hbg is 8.7. This RN held the transfusion. Dr. Mcwilliams was notified and is okay with waiting until hgb is under 7. Lab orders are in the computer for 10/27 at 0800 to recheck pt's hemoglobin, and other labs.
--- NOTE | 2020-10-27 07:50 | PDOC1 ---
History and Physical Date of Admission Date of Admission DATE: 10/27/20 TIME: 07:50 Identification/Chief Complaint Chief Complaint Rectal bleeding Source Source: Patient History of Present Illness History of Present Illness Mr Castellanos is an 80 yo male with a past medical history DVT/PE, PAD, Gout, BPH, OA, [place], atrial fibrillation, CHF, diabetes, ESRD (MWF) presents for evaluation of rectal bleeding. Patient is on Coumadin for his atrial fibrillation and Hx of PE/DVT. Prior to arrival patient passed several large clots per rectum. Patient denies any associated abdominal pain, but does note he is little more short of breath and fatigue which has gotten worse over the past couple of days. WBC 11.7, Hb 8.7, platelets 228, INR 2.5, PTT 61 NA 139, K5.1, BUN 60, CR 7.6, glucose 133 bilirubin 0.5, AST 54, ALT 112 alk phos decreased to 62, albumin 2.9, troponin 0 EKG regular rhythm and rate around 67bpm. No acute ST segment changes or T WI. After another bloody bowel movement repeat hemoglobin was 6.1. Past Medical History Cardiovascular: CHF, HTN, Hyperlipidemia Pulmonary: Pulmonary embolus CENTRAL NERVOUS SYSTEM: Other GI: No pertinent hx Heme/Onc: No pertinent hx Hepatobiliary: No pertinent hx Psych: No pertinent hx Musculoskeletal: Osteoarthritis Rheumatologic: No pertinent hx Infectious disease: No pertinent hx Renal/: No pertinent hx Endocrine: Diabetes Past Surgical History Past Surgical History: Cataract Removal, Total knee replacement, Other Family History Family History: Coronary Artery Disease Social History Smoke: No ALCOHOL: none Drugs: None Current Problem List Problem List Problems Medical Problems: (1) ESRD (end stage renal disease) Status: Acute (2) Rectal bleeding Status: Acute Current Medications Current Medications Current Medications Acetaminophen (Tylenol) 650 mg 1X PRN PRN PO PRE-TRANSFUSION; Start 10/26/20 at 23:45; Stop 10/27/20 at 23:44 Diphenhydramine HCl (Benadryl Oral Elixir) 12.5 mg 1X PRN PRN PO PRE- TRANSFUSION; Start 10/26/20 at 23:45; Stop 10/27/20 at 23:44 Ondansetron HCl (Zofran) 4 mg PRN Q8HRS PRN IVP NAUSEA/VOMITING 1ST CHOICE; Start 10/27/20 at 00:45; Stop 10/28/20 at 00:44 Active Scripts Active Humalog (Insulin Lispro) 100 Unit/1 Ml Insuln.pen 10 Units SQ TIDWMEALS 30 Days Lantus Solostar (Insulin Glargine,Hum.rec.anlog) 100 Unit/1 Ml Insuln.pen 10 Units SQ DAILYWSUP 30 Days Pristiq ER (Desvenlafaxine Succinate) 25 Mg Tab.er.24h 50 Mg PO DAILY 30 Days Reported Renvela (Sevelamer Carbonate) 800 Mg Tablet 800 Mg PO TIDWMEALS Polyethylene Glycol 3350 2,500 Gm Powder 17 Gm PO DAILY 30 Days Calcium Acetate 667 Mg Tablet 2 Tab PO TID 30 Days Senna (Sennosides) 8.8 Mg/5 Ml Syrup 8.8 Mg PO BID Omeprazole 20 Mg Capsule.dr 1 Cap PO DAILY B-12 (Cyanocobalamin (Vitamin B-12)) 500 Mcg Tablet 1 Tab PO DAILY 30 Days Gabapentin 300 Mg Capsule 300 Mg PO BID Mysoline (Primidone) 50 Mg Tablet 1 Tab PO QHS 30 Days Midodrine Hcl 5 Mg Tablet 5 Mg PO ,,TUE Atorvastatin Calcium 40 Mg Tablet 1 Tab PO QHS Zoloft (Sertraline Hcl) 25 Mg Tablet 1 Tab PO DAILY Warfarin Sodium 5 Mg Tablet 5 Mg PO DAILY Calcium Acetate 667 Mg Tablet 1 Tab PO TID 30 Days Novolog (Insulin Aspart) 100 Unit/1 Ml Vial 31 Unit SQ TIDAC Buspirone Hcl 5 Mg Tablet 0.5 Tab PO BID Warfarin Sodium 5 Mg Tablet 5 Mg PO DAILY 1.5 tab on , 1 tab on , Tuesday Famotidine 20 Mg Tablet 20 Mg PO HS Aldactone (Spironolactone) 25 Mg Tablet 0.5 Tab PO DAILY Minoxidil 2.5 Mg Tablet 1 Tab PO BID Losartan Potassium 100 Mg Tablet 100 Mg PO DAILY Gabapentin 600 Mg Tablet 300 Mg PO DAILY Folic Acid 1 Mg Tablet 1 Tab PO DAILY Furosemide 40 Mg Tablet 2 Tab PO DAILY Ferrous Sulfate 325 Mg Tablet 1 Tab PO DAILY Nystatin 15 Gm Powder 1 Lexie TP BID Vitamin D3 (Cholecalciferol (Vitamin D3)) 1,000 Unit Tablet 3 Tab PO DAILY Carvedilol (Carvedilol) 6.25 Mg Tablet 3.125 Mg PO BIDWMEALS Amlodipine Besylate 10 Mg Tablet 10 Mg PO DAILY Atorvastatin Calcium 40 Mg Tablet 1 Tab PO QHS Tamsulosin Hcl 0.4 Mg Cap.er.24h 1 Cap PO DAILY Docusate Sodium 100 Mg Capsule 1 Cap PO BID PRN Allergies Allergies: Coded Allergies: sildenafil (Verified Allergy, Intermediate, 04/14/20) lisinopril (Verified Adverse Reaction, Intermediate, itching, 04/14/20) niacin (Verified Adverse Reaction, Intermediate, itching, 04/14/20) ROS General: YES: Fatigue, Malaise; No: Chills, Night Sweats, Appetite, Other PSYCHOLOGICAL ROS: No: Anxiety, Behavioral Disorder, Concentration difficultie, Decreased libido, Depression, Disorientation, Hallucinations, Hostility, Irritablity, Memory difficulties, Mood Swings, Obsessive thoughts, Physical abuse, Sexual abuse, Sleep disturbances, Suicidal ideation, Other Eyes: No Blurry vision, No Decreased vision, No Double vision, No Dry eyes, No Excessive tearing, No Eye Pain, No Itchy Eyes, No Loss of vision, No Photophobia, No Scotomata, No Uses contacts, No Uses glasses, No Other HEENT: No: Heacaches, Visual Changes, Hearing change, Nasal congestion, Nasal discharge, Oral lesions, Sinus pain, Sore Throat, Epistaxis, Sneezing, Snoring, Tinnitus, Vertigo, Vocal changes, Other ALLERGY AND IMMUNOLOGY: No: Hives, Insect Bite Sensitivity, Itchy/Watery Eyes, Nasal Congestion, Post Nasal Drip, Seasonal Allergies, Other Hematological and Lymphatic: No: Bleeding Problems, Blood Clots, Blood Transfusions, Brusing, Night Sweats, Pallor, Swollen Lymph Nodes, Other ENDOCRINE: No: Breast Changes, Galactorrhea, Hair Pattern Changes, Hot Flashes, Malaise/lethargy, Mood Swings, Palpitations, Polydipsia/polyuria, Skin Changes, Temperature Intolerance, Unexpected Weight Changes, Other Breast: No New/Changing Breast Lumps, No Nipple changes, No Nipple discharge, No Other Respiratory: YES: Shortness of breath, SOB with excertion; No: Cough, Hemoptysis, Orthopnea, Pleuritic Pain, Sputum Changes, Stridor, Tachypnea, Wheezing, Other Cardiovascular: yes Lt Headedness; No Chest Pain, No Palpitations, No Orthopnea, No Paroxysmal Noc. Dyspnea, No Edema, No Other Gastrointestinal: Yes Melena; No Nausea, No Vomiting, No Abdominal Pain, No Diarrhea, No Constipation, No Hematochezia, No Other Genitourinary: No Dysuria, No Frequency, No Incontinence, No Hematuria, No Retention, No Discharge, No Urgency, No Pain, No Flank Pain, No Other, No , No , No , No , No , No , No Musculoskeletal: No Gait Disturbance, No Joint Pain, No Joint Stiffness, No Joint Swelling, No Muscle Pain, No Muscular Weakness, No Pain In:, No Swelling In:, No Other Neurological: No Behavorial Changes, No Bowel/Bladder ControlChng, No Confusi on, No Dizziness, No Gait Disturbance, No Headaches, No Impaired Coord/balance, No Memory Loss, No Numbness/Tingling, No Seizures, No Speech Problems, No Tremors, No Visual Changes, No Weakness, No Other Skin: No Dry Skin, No Eczema, No Hair Changes, No Lumps, No Mole Changes, No Mottling, No Nail Changes, No Pruritus, No Rash, No Skin Lesion Changes, No Other, No Acne Physical Exam General: Alert, Cooperative, No acute distress HEENT: Atraumatic, PERRLA, EOMI, Mucous membr. moist/pink Lungs: Clear to auscultation, Normal air movement Heart: irregularly irregular Abdomen: Normal bowel sounds, Soft, No tenderness, No hepatosplenomegaly, No masses Rectal Exam: other (Blood in vault) Extremities: No clubbing, No cyanosis, No edema, Normal pulses, No tenderness/swelling Skin: No rashes, No breakdown, No significant lesion Neuro: Normal speech, Strength at 5/5 X4 ext, Normal tone, Sensation intact, Cranial nerves 3-12 NL, Reflexes 2+ Psych/Mental Status: Other (Slight confusion) Vitals Vitals Vital Signs Date Time Temp Pulse Resp B/P (MAP) Pulse Ox O2 Delivery O2 Flow Rate FiO2 10/27/20 03:00 98.8 69 18 138/51 (80) 96 Nasal Cannula 2.0 98.8 Labs Labs Laboratory Tests Test 10/26/20 22:25 10/27/20 01:33 10/27/20 07:30 White Blood Count 11.7 x10^3/uL (4.0-11.0) Red Blood Count 2.30 x10^6/uL (4.30-5.70) Hemoglobin 8.7 g/dL (13.0-17.5) Hematocrit 25.6 % (39.0-53.0) Mean Corpuscular Volume 111 fL (79-100) Mean Corpuscular Hemoglobin 38 pg (25-35) Mean Corpuscular Hemoglobin Concent 34 g/dL (31-37) Red Cell Distribution Width 17.4 % (11.5-14.5) Platelet Count 228 x10^3/uL (140-400) Neutrophils (%) (Auto) 70 % (31-73) Lymphocytes (%) (Auto) 18 % (24-48) Monocytes (%) (Auto) 10 % (0-9) Eosinophils (%) (Auto) 1 % (0-3) Basophils (%) (Auto) 1 % (0-3) Neutrophils # (Auto) 8.2 x10^3/uL (1.8-7.7) Lymphocytes # (Auto) 2.1 x10^3/uL (1.0-4.8) Monocytes # (Auto) 1.1 x10^3/uL (0.0-1.1) Eosinophils # (Auto) 0.1 x10^3/uL (0.0-0.7) Basophils # (Auto) 0.1 x10^3/uL (0.0-0.2) Segmented Neutrophils % 73 % (35-66) Band Neutrophils % 1 % (0-9) Lymphocytes % 22 % (24-48) Monocytes % 3 % (0-10) Basophils % 1 % (0-3) Platelet Estimate Adequate (ADEQUATE) Polychromasia Slight Basophilic Stippling Present Anisocytosis Slight Macrocytosis Mod Prothrombin Time 26.8 SEC (11.7-14.0) Prothromb Time International Ratio 2.5 (0.8-1.1) Activated Partial Thromboplast Time 60 SEC (24-38) Sodium Level 139 mmol/L (136-145) Potassium Level 5.1 mmol/L (3.5-5.1) Chloride Level 99 mmol/L (98-107) Carbon Dioxide Level 33 mmol/L (21-32) Anion Gap 7 (6-14) Blood Urea Nitrogen 60 mg/dL (8-26) Creatinine 7.6 mg/dL (0.7-1.3) Estimated GFR (Cockcroft-Gault) 6.9 BUN/Creatinine Ratio 8 (6-20) Glucose Level 173 mg/dL (70-99) Calcium Level 9.2 mg/dL (8.5-10.1) Total Bilirubin 0.5 mg/dL (0.2-1.0) Aspartate Amino Transf (AST/SGOT) 54 U/L (15-37) Alanine Aminotransferase (ALT/SGPT) 110 U/L (16-63) Alkaline Phosphatase 262 U/L (46-116) Troponin I Quantitative < 0.017 ng/mL (0.000-0.055) Total Protein 6.5 g/dL (6.4-8.2) Albumin 2.9 g/dL (3.4-5.0) Albumin/Globulin Ratio 0.8 (1.0-1.7) Glucose (Fingerstick) 157 mg/dL (70-99) 152 mg/dL (70-99) Laboratory Tests Test 10/26/20 22:25 10/27/20 01:33 10/27/20 07:30 White Blood Count 11.7 x10^3/uL (4.0-11.0) Red Blood Count 2.30 x10^6/uL (4.30-5.70) Hemoglobin 8.7 g/dL (13.0-17.5) Hematocrit 25.6 % (39.0-53.0) Mean Corpuscular Volume 111 fL (79-100) Mean Corpuscular Hemoglobin 38 pg (25-35) Mean Corpuscular Hemoglobin Concent 34 g/dL (31-37) Red Cell Distribution Width 17.4 % (11.5-14.5) Platelet Count 228 x10^3/uL (140-400) Neutrophils (%) (Auto) 70 % (31-73) Lymphocytes (%) (Auto) 18 % (24-48) Monocytes (%) (Auto) 10 % (0-9) Eosinophils (%) (Auto) 1 % (0-3) Basophils (%) (Auto) 1 % (0-3) Neutrophils # (Auto) 8.2 x10^3/uL (1.8-7.7) Lymphocytes # (Auto) 2.1 x10^3/uL (1.0-4.8) Monocytes # (Auto) 1.1 x10^3/uL (0.0-1.1) Eosinophils # (Auto) 0.1 x10^3/uL (0.0-0.7) Basophils # (Auto) 0.1 x10^3/uL (0.0-0.2) Segmented Neutrophils % 73 % (35-66) Band Neutrophils % 1 % (0-9) Lymphocytes % 22 % (24-48) Monocytes % 3 % (0-10) Basophils % 1 % (0-3) Platelet Estimate Adequate (ADEQUATE) Polychromasia Slight Basophilic Stippling Present Anisocytosis Slight Macrocytosis Mod Prothrombin Time 26.8 SEC (11.7-14.0) Prothromb Time International Ratio 2.5 (0.8-1.1) Activated Partial Thromboplast Time 60 SEC (24-38) Sodium Level 139 mmol/L (136-145) Potassium Level 5.1 mmol/L (3.5-5.1) Chloride Level 99 mmol/L (98-107) Carbon Dioxide Level 33 mmol/L (21-32) Anion Gap 7 (6-14) Blood Urea Nitrogen 60 mg/dL (8-26) Creatinine 7.6 mg/dL (0.7-1.3) Estimated GFR (Cockcroft-Gault) 6.9 BUN/Creatinine Ratio 8 (6-20) Glucose Level 173 mg/dL (70-99) Calcium Level 9.2 mg/dL (8.5-10.1) Total Bilirubin 0.5 mg/dL (0.2-1.0) Aspartate Amino Transf (AST/SGOT) 54 U/L (15-37) Alanine Aminotransferase (ALT/SGPT) 110 U/L (16-63) Alkaline Phosphatase 262 U/L (46-116) Troponin I Quantitative < 0.017 ng/mL (0.000-0.055) Total Protein 6.5 g/dL (6.4-8.2) Albumin 2.9 g/dL (3.4-5.0) Albumin/Globulin Ratio 0.8 (1.0-1.7) Glucose (Fingerstick) 157 mg/dL (70-99) 152 mg/dL (70-99) VTE Prophylaxis Ordered VTE Prophylaxis Devices: Yes VTE Pharmacological Prophylaxi: Contraindicated Assessment/Plan Assessment/Plan A/P: Rectal bleeding - possibly from AVM. Acute anemia - large drop from GI bleed. GI consulted. 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 PAD of left lower extremity - 04/15/2020 - s/p left popliteal angioplasty and stenting and left posterior tibial balloon angioplasty History of end-stage renal disease on hemodialysis Chronic congestive heart failure combined systolic and diastolic dysfunction EF 45% History of atrial fibrillation and prior pulmonary embolism on chronic anticoagulation with Coumadin Essential hypertension Dyslipidemia - cont statin DM2 with Hyperglycemia - sliding scale Leukocytosis - stress related, likely Severe aortic stenosis - Calculated aortic valve maximum pressure gradient of 58 mmHg and mean pressure gradient of 40 mmHg Moderate eccentric aortic regurgitation. Pulmonary HTN - RVSP 40 mm Hg Transaminitis - unclear etiology, likely related to hypovolemia, will monitor trend FEN - NPO PPX - SCDs, PPI FULL CODE Dispo - inpatient Justifications for Admission Other Justification limb ischemia TOI HERNANDEZ MD Oct 27, 2020 07:50
[2020-10-27] MEDS ORDERED: DEXTROSE 50% 25 GM / 50ML DISP.SYRIN. IV PRN (09:00)
[2020-10-27 09:19] LABS: BASO # 0.1 x10^3/uL (0.0-0.2); BASO % 1 % (0-3); EOS # 0.1 x10^3/uL (0.0-0.7); EOS % 1 % (0-3); LYMPH # 2.3 x10^3/uL (1.0-4.8); LYMPH % 21 % (24-48); MEAN CORPUSCULAR HEMOGLOBIN 37 pg (25-35); MEAN CORPUSCULAR HGB CONC 32 g/dL (31-37); MEAN CORPUSCULAR VOLUME 114 fL (79-100); MONO # 1.1 x10^3/uL (0.0-1.1); MONO % 10 % (0-9); NEUT # 7.5 x10^3/uL (1.8-7.7); NEUT % 68 % (31-73); PLATELET COUNT 216 x10^3/uL (140-400); RED BLOOD COUNT 1.67 x10^6/uL (4.30-5.70); RED CELL DISTRIBUTION WIDTH 18.8 % (11.5-14.5); WHITE BLOOD COUNT 11.1 x10^3/uL (4.0-11.0)
[2020-10-27 09:26] LABS: HEMATOCRIT 18.9 % (39.0-53.0)
[2020-10-27 09:27] LABS: HEMOGLOBIN 6.1 g/dL (13.0-17.5)
--- NOTE | 2020-10-27 09:32 | PDOC2 ---
GI CONSULT Date of Service: DATE: 10/27/20 TIME: 09:31 Reason For Consult: GI bleed HPI: HPI: 80 y/o male sent from [facility] with "bloody stools." He says this started yesterday, he didn't see the blood but he assumes it was red, and it last occurred last night. Denies other GI symptoms including reflux, dysphagia, n/v, abd pain, diarrhea, constipation, change in appetite, and weight loss. Denies worsening SOA, sweating, chest pain, dizziness, and syncope. Mentions ongoing weakness since hospitalized x [facility] for [facility] issues. No previous EGD. Reports normal colonoscopy @ [facility] ~5 years ago (and another normal colonoscopy at some point prior to that). Denies GB, liver, pancreas, and PUD history. H/o A Fib, PE/DVT, CAD, PAD w/ LLE stent, , and ESRD on HD on Coumadin (no longer on ASA or Plavix). Summary list includes B12 (thinks he takes), iron (thinks he takes), famotidine (thinks he takes), and omeprazole (not sure about this one). PMH: PMH: CAD, PAD, A Fib, HTN, HLD, CHF, DVT/PE, DM, ESRD on HD, HLD, BPH, [place], gout, OA, peripheral neuropathy, depression right lobectomy (pneumonia), left knee replacement, LLE stent, cataract removal/lens implant, HD fistula FH: Family History: No pertinent hx (no GI cancers) Social History: Smoke: Quit ALCOHOL: other (some in the past - quit) Drugs: None ROS: GEN: +weakness HEENT: Denies blurred vision, sore throat CV: Denies chest pain RESP: Denies shortness of air, cough GI: Per HPI : Denies hematuria, dysuria ENDO: Denies weight changes NEURO: Denies confusion, dizziness MSK: +weakness SKIN: Denies jaundice, pruritus Vitals: Vitals: Vital Signs Date Time Temp Pulse Resp B/P (MAP) Pulse Ox O2 Delivery O2 Flow Rate FiO2 10/27/20 07:00 98.6 69 18 129/70 (89) 96 Nasal Cannula 2.0 98.6 Labs: Labs: Laboratory Tests Test 10/26/20 22:25 10/27/20 01:33 10/27/20 07:30 10/27/20 08:55 White Blood Count 11.7 x10^3/uL (4.0-11.0) 11.1 x10^3/uL (4.0-11.0) Red Blood Count 2.30 x10^6/uL (4.30-5.70) 1.67 x10^6/uL (4.30-5.70) Hemoglobin 8.7 g/dL (13.0-17.5) 6.1 g/dL (13.0-17.5) Hematocrit 25.6 % (39.0-53.0) 18.9 % (39.0-53.0) Mean Corpuscular Volume 111 fL (79-100) 114 fL (79-100) Mean Corpuscular Hemoglobin 38 pg (25-35) 37 pg (25-35) Mean Corpuscular Hemoglobin Concent 34 g/dL (31-37) 32 g/dL (31-37) Red Cell Distribution Width 17.4 % (11.5-14.5) 18.8 % (11.5-14.5) Platelet Count 228 x10^3/uL (140-400) 216 x10^3/uL (140-400) Neutrophils (%) (Auto) 70 % (31-73) 68 % (31-73) Lymphocytes (%) (Auto) 18 % (24-48) 21 % (24-48) Monocytes (%) (Auto) 10 % (0-9) 10 % (0-9) Eosinophils (%) (Auto) 1 % (0-3) 1 % (0-3) Basophils (%) (Auto) 1 % (0-3) 1 % (0-3) Neutrophils # (Auto) 8.2 x10^3/uL (1.8-7.7) 7.5 x10^3/uL (1.8-7.7) Lymphocytes # (Auto) 2.1 x10^3/uL (1.0-4.8) 2.3 x10^3/uL (1.0-4.8) Monocytes # (Auto) 1.1 x10^3/uL (0.0-1.1) 1.1 x10^3/uL (0.0-1.1) Eosinophils # (Auto) 0.1 x10^3/uL (0.0-0.7) 0.1 x10^3/uL (0.0-0.7) Basophils # (Auto) 0.1 x10^3/uL (0.0-0.2) 0.1 x10^3/uL (0.0-0.2) Segmented Neutrophils % 73 % (35-66) Band Neutrophils % 1 % (0-9) Lymphocytes % 22 % (24-48) Monocytes % 3 % (0-10) Basophils % 1 % (0-3) Platelet Estimate Adequate (ADEQUATE) Polychromasia Slight Basophilic Stippling Present Anisocytosis Slight Macrocytosis Mod Prothrombin Time 26.8 SEC (11.7-14.0) Prothromb Time International Ratio 2.5 (0.8-1.1) Activated Partial Thromboplast Time 60 SEC (24-38) Sodium Level 139 mmol/L (136-145) Potassium Level 5.1 mmol/L (3.5-5.1) Chloride Level 99 mmol/L (98-107) Carbon Dioxide Level 33 mmol/L (21-32) Anion Gap 7 (6-14) Blood Urea Nitrogen 60 mg/dL (8-26) Creatinine 7.6 mg/dL (0.7-1.3) Estimated GFR (Cockcroft-Gault) 6.9 BUN/Creatinine Ratio 8 (6-20) Glucose Level 173 mg/dL (70-99) Calcium Level 9.2 mg/dL (8.5-10.1) Total Bilirubin 0.5 mg/dL (0.2-1.0) Aspartate Amino Transf (AST/SGOT) 54 U/L (15-37) Alanine Aminotransferase (ALT/SGPT) 110 U/L (16-63) Alkaline Phosphatase 262 U/L (46-116) Troponin I Quantitative < 0.017 ng/mL (0.000-0.055) Total Protein 6.5 g/dL (6.4-8.2) Albumin 2.9 g/dL (3.4-5.0) Albumin/Globulin Ratio 0.8 (1.0-1.7) Glucose (Fingerstick) 157 mg/dL (70-99) 152 mg/dL (70-99) Allergies: Coded Allergies: sildenafil (Verified Allergy, Intermediate, 04/14/20) lisinopril (Verified Adverse Reaction, Intermediate, itching, 04/14/20) niacin (Verified Adverse Reaction, Intermediate, itching, 04/14/20) Medications: see EMR PE: GEN: NAD -eating eggs and toast HEENT: Atraumatic LUNGS: clear anteriorly, NC 2L HEART: irregular +murm ABD: large, a few quiet gurgles, soft, non-tender EXTREMITY: trace edema BLE SKIN: pale/grayish NEURO/PSYCH: A & O 3, probably forgetful A/P: A/P: Hematochezia Anemia (chronic), macrocytosis (normal B12 04/2020), elevated LFTs (noted in past - better than previous admission) ?GERD CRC screen - reportedly UTD H/o A Fib, PE/DVT, CAD, PAD, ESRD on HD Anticoagulated w/ Coumadin - INR 2.5 -- Finishing regular breakfast. Looks like some bleeding (red) on pad underneath pt. D/w nurse and Dr. Vidal. Since I have seen, Hgb recheck noted 6.1. Check bleeding scan, keep NPO for now (I discussed with him - initially he wasn't on board but then reconsidered), and transfuse 2 units pRBCs. Will also ask for records from past colonoscopy. IV acid-head of marketing. Hold Coumadin. TONY FUENTES Oct 27, 2020 09:32
[2020-10-27] MEDS ORDERED: HEPARIN for NUC MED 500 UNIT/5 ML DISP.SYRIN. IV ONE ×2 (11:00→11:02)
--- NOTE | 2020-10-27 11:07 | PDOC2 ---
CONSULT Date of Consult Date of Consult DATE: 10/27/20 TIME: 11:02 Reason for Consult Reason for Consult: ESRD WITH RECTAL BLEEDING Referring Physician Referring Physician: DAVID Identification/Chief Complaint Chief Complaint RECTAL BLEEDING Source Source: Chart review History of Present Illness Reason for Visit: THIS IS AN 80 YR OLD PT ON ESRD MWF. HAS ESRD DUE TO HTN AND DM II. LABS ARE C/W ESRD. HAS A RIGHT ARM AVF FOR HIS ACCESS. ADMITTED WITH RECTAL BLEEDING. HGB OF 6.1. HE IS NOT ABLE TO GIVE ANY HX HE IS A POOR HISTORIAN AND FORGETFUL. HAS BEEN ON ANTICOAGULATION FOR HIS AFIB. BELOW NOTE REVIEWED. Mr Castellanos is an 80 yo male with a past medical history DVT/PE, PAD, Gout, BPH, OA, [place], atrial fibrillation, CHF, diabetes, ESRD (MWF) presents for evaluation of rectal bleeding. Patient is on Coumadin for his atrial fibrillation and Hx of PE/DVT. Prior to arrival patient passed several large clots per rectum. Patient denies any associated abdominal pain, but does note he is little more short of breath and fatigue which has gotten worse over the past couple of days. WBC 11.7, Hb 8.7, platelets 228, INR 2.5, PTT 61 NA 139, K5.1, BUN 60, CR 7.6, glucose 133 bilirubin 0.5, AST 54, ALT 112 alk phos decreased to 62, albumin 2.9, troponin 0 EKG regular rhythm and rate around 67bpm. No acute ST segment changes or T WI. After another bloody bowel movement repeat hemoglobin was 6.1. Past Medical History Cardiovascular: CHF, HTN, Hyperlipidemia Pulmonary: Pulmonary embolus CENTRAL NERVOUS SYSTEM: Other GI: No pertinent hx Heme/Onc: No pertinent hx Hepatobiliary: No pertinent hx Psych: No pertinent hx Musculoskeletal: Osteoarthritis Rheumatologic: No pertinent hx Infectious disease: No pertinent hx Renal/: Chronic renal failure Endocrine: Diabetes, Hyperparathyroidism Past Surgical History Past Surgical History: Cataract Removal, Total knee replacement, Other Family History Family History: Coronary Artery Disease Social History Quit ALCOHOL: other (some in the past - quit) Drugs: None Lives: with Family Current Problem List Problem List Problems Medical Problems: (1) ESRD (end stage renal disease) Status: Acute (2) Rectal bleeding Status: Acute Current Medications Current Medications Current Medications Acetaminophen (Tylenol) 650 mg 1X PRN PRN PO PRE-TRANSFUSION; Start 8/15/21 at 23:45; Stop 10/27/20 at 23:44 Diphenhydramine HCl (Benadryl Oral Elixir) 12.5 mg 1X PRN PRN PO PRE- TRANSFUSION; Start 10/26/20 at 23:45; Stop 10/27/20 at 23:44 Ondansetron HCl (Zofran) 4 mg PRN Q8HRS PRN IVP NAUSEA/VOMITING 1ST CHOICE; Start 10/27/20 at 00:45; Stop 10/28/20 at 00:44 Insulin Human Lispro (HumaLOG) 0-9 UNITS TIDWMEALS SQ ; Start 10/27/20 at 12:00 Dextrose (Dextrose 50%-Water Syringe) 12.5 gm PRN Q15MIN PRN IV SEE COMMENTS; Start 10/27/20 at 09:00 Pantoprazole Sodium (PROTONIX VIAL for IV PUSH) 40 mg DAILYAC IVP ; Start 10/27/20 at 11:00 Heparin Sodium (Porcine) (HEPARIN for NUC MED) 100 unit 1X ONCE IV ; Start 10/27/20 at 11:00; Stop 10/27/20 at 11:01; Status DC Active Scripts Active Humalog (Insulin Lispro) 100 Unit/1 Ml Insuln.pen 10 Units SQ TIDWMEALS 30 Days Lantus Solostar (Insulin Glargine,Hum.rec.anlog) 100 Unit/1 Ml Insuln.pen 10 Units SQ DAILYWSUP 30 Days Pristiq ER (Desvenlafaxine Succinate) 25 Mg Tab.er.24h 50 Mg PO DAILY 30 Days Reported Renvela (Sevelamer Carbonate) 800 Mg Tablet 800 Mg PO TIDWMEALS Polyethylene Glycol 3350 2,500 Gm Powder 17 Gm PO DAILY 30 Days Calcium Acetate 667 Mg Tablet 2 Tab PO TID 30 Days Senna (Sennosides) 8.8 Mg/5 Ml Syrup 8.8 Mg PO BID Omeprazole 20 Mg Capsule.dr 1 Cap PO DAILY B-12 (Cyanocobalamin (Vitamin B-12)) 500 Mcg Tablet 1 Tab PO DAILY 30 Days Gabapentin 300 Mg Capsule 300 Mg PO BID Mysoline (Primidone) 50 Mg Tablet 1 Tab PO QHS 30 Days Midodrine Hcl 5 Mg Tablet 5 Mg PO ,,SAT Atorvastatin Calcium 40 Mg Tablet 1 Tab PO QHS Zoloft (Sertraline Hcl) 25 Mg Tablet 1 Tab PO DAILY Warfarin Sodium 5 Mg Tablet 5 Mg PO DAILY Calcium Acetate 667 Mg Tablet 1 Tab PO TID 30 Days Novolog (Insulin Aspart) 100 Unit/1 Ml Vial 31 Unit SQ TIDAC Buspirone Hcl 5 Mg Tablet 0.5 Tab PO BID Warfarin Sodium 5 Mg Tablet 5 Mg PO DAILY 1.5 tab on , 1 tab on ,Tue, Tuesday Famotidine 20 Mg Tablet 20 Mg PO HS Aldactone (Spironolactone) 25 Mg Tablet 0.5 Tab PO DAILY Minoxidil 2.5 Mg Tablet 1 Tab PO BID Losartan Potassium 100 Mg Tablet 100 Mg PO DAILY Gabapentin 600 Mg Tablet 300 Mg PO DAILY Folic Acid 1 Mg Tablet 1 Tab PO DAILY Furosemide 40 Mg Tablet 2 Tab PO DAILY Ferrous Sulfate 325 Mg Tablet 1 Tab PO DAILY Nystatin 15 Gm Powder 1 Lexie TP BID Vitamin D3 (Cholecalciferol (Vitamin D3)) 1,000 Unit Tablet 3 Tab PO DAILY Carvedilol (Carvedilol) 6.25 Mg Tablet 3.125 Mg PO BIDWMEALS Amlodipine Besylate 10 Mg Tablet 10 Mg PO DAILY Atorvastatin Calcium 40 Mg Tablet 1 Tab PO QHS Tamsulosin Hcl 0.4 Mg Cap.er.24h 1 Cap PO DAILY Docusate Sodium 100 Mg Capsule 1 Cap PO BID PRN Allergies Allergies: Coded Allergies: sildenafil (Verified Allergy, Intermediate, 04/14/20) lisinopril (Verified Adverse Reaction, Intermediate, itching, 04/14/20) niacin (Verified Adverse Reaction, Intermediate, itching, 04/14/20) ROS Review of System INFORMATION FROM CHART REVIEW General: YES: Fatigue, Malaise, Appetite PSYCHOLOGICAL ROS: YES: Anxiety, Depression Eyes: Yes Decreased vision HEENT: YES: Gayathri ALLERGY AND IMMUNOLOGY: YES: Seasonal Allergies Respiratory: YES: Cough Gastrointestinal: Yes Hematochezia Genitourinary: YES Other (ANURIA) Musculoskeletal: Yes Muscular Weakness Neurological: Yes Weakness Skin: Yes Dry Skin Physical Exam General: Alert, Cooperative, No acute distress HEENT: Atraumatic, PERRLA, EOMI Lungs: Clear to auscultation Heart: Regular rate Abdomen: Normal bowel sounds, Soft, No tenderness Extremities: No clubbing Skin: No breakdown Neuro: Other (CONFUSED SLOW SPEECH, NO ASYMMETRY) Psych/Mental Status: Other (FLAT CONFUSED AFFECT) MUSCULOSKELETAL: No joint tenderness, No deformity, Other (RIGHT ARM AVF HAS A GOOD THRILL AND BRUIT) Vitals VITALS Vital Signs Date Time Temp Pulse Resp B/P (MAP) Pulse Ox O2 Delivery O2 Flow Rate FiO2 10/27/20 07:00 98.6 69 18 129/70 (89) 96 Nasal Cannula 2.0 98.6 Labs Labs Laboratory Tests Test 10/26/20 22:25 10/27/20 01:33 10/27/20 07:30 10/27/20 08:55 White Blood Count 11.7 x10^3/uL (4.0-11.0) 11.1 x10^3/uL (4.0-11.0) Red Blood Count 2.30 x10^6/uL (4.30-5.70) 1.67 x10^6/uL (4.30-5.70) Hemoglobin 8.7 g/dL (13.0-17.5) 6.1 g/dL (13.0-17.5) Hematocrit 25.6 % (39.0-53.0) 18.9 % (39.0-53.0) Mean Corpuscular Volume 111 fL (79-100) 114 fL (79-100) Mean Corpuscular Hemoglobin 38 pg (25-35) 37 pg (25-35) Mean Corpuscular Hemoglobin Concent 34 g/dL (31-37) 32 g/dL (31-37) Red Cell Distribution Width 17.4 % (11.5-14.5) 18.8 % (11.5-14.5) Platelet Count 228 x10^3/uL (140-400) 216 x10^3/uL (140-400) Neutrophils (%) (Auto) 70 % (31-73) 68 % (31-73) Lymphocytes (%) (Auto) 18 % (24-48) 21 % (24-48) Monocytes (%) (Auto) 10 % (0-9) 10 % (0-9) Eosinophils (%) (Auto) 1 % (0-3) 1 % (0-3) Basophils (%) (Auto) 1 % (0-3) 1 % (0-3) Neutrophils # (Auto) 8.2 x10^3/uL (1.8-7.7) 7.5 x10^3/uL (1.8-7.7) Lymphocytes # (Auto) 2.1 x10^3/uL (1.0-4.8) 2.3 x10^3/uL (1.0-4.8) Monocytes # (Auto) 1.1 x10^3/uL (0.0-1.1) 1.1 x10^3/uL (0.0-1.1) Eosinophils # (Auto) 0.1 x10^3/uL (0.0-0.7) 0.1 x10^3/uL (0.0-0.7) Basophils # (Auto) 0.1 x10^3/uL (0.0-0.2) 0.1 x10^3/uL (0.0-0.2) Segmented Neutrophils % 73 % (35-66) Band Neutrophils % 1 % (0-9) Lymphocytes % 22 % (24-48) Monocytes % 3 % (0-10) Basophils % 1 % (0-3) Platelet Estimate Adequate (ADEQUATE) Polychromasia Slight Basophilic Stippling Present Anisocytosis Slight Macrocytosis Mod Prothrombin Time 26.8 SEC (11.7-14.0) Prothromb Time International Ratio 2.5 (0.8-1.1) Activated Partial Thromboplast Time 60 SEC (24-38) Sodium Level 139 mmol/L (136-145) Potassium Level 5.1 mmol/L (3.5-5.1) Chloride Level 99 mmol/L (98-107) Carbon Dioxide Level 33 mmol/L (21-32) Anion Gap 7 (6-14) Blood Urea Nitrogen 60 mg/dL (8-26) Creatinine 7.6 mg/dL (0.7-1.3) Estimated GFR (Cockcroft-Gault) 6.9 BUN/Creatinine Ratio 8 (6-20) Glucose Level 173 mg/dL (70-99) Calcium Level 9.2 mg/dL (8.5-10.1) Total Bilirubin 0.5 mg/dL (0.2-1.0) Aspartate Amino Transf (AST/SGOT) 54 U/L (15-37) Alanine Aminotransferase (ALT/SGPT) 110 U/L (16-63) Alkaline Phosphatase 262 U/L (46-116) Troponin I Quantitative < 0.017 ng/mL (0.000-0.055) Total Protein 6.5 g/dL (6.4-8.2) Albumin 2.9 g/dL (3.4-5.0) Albumin/Globulin Ratio 0.8 (1.0-1.7) Glucose (Fingerstick) 157 mg/dL (70-99) 152 mg/dL (70-99) Laboratory Tests Test 10/26/20 22:25 10/27/20 01:33 10/27/20 07:30 10/27/20 08:55 White Blood Count 11.7 x10^3/uL (4.0-11.0) 11.1 x10^3/uL (4.0-11.0) Red Blood Count 2.30 x10^6/uL (4.30-5.70) 1.67 x10^6/uL (4.30-5.70) Hemoglobin 8.7 g/dL (13.0-17.5) 6.1 g/dL (13.0-17.5) Hematocrit 25.6 % (39.0-53.0) 18.9 % (39.0-53.0) Mean Corpuscular Volume 111 fL (79-100) 114 fL (79-100) Mean Corpuscular Hemoglobin 38 pg (25-35) 37 pg (25-35) Mean Corpuscular Hemoglobin Concent 34 g/dL (31-37) 32 g/dL (31-37) Red Cell Distribution Width 17.4 % (11.5-14.5) 18.8 % (11.5-14.5) Platelet Count 228 x10^3/uL (140-400) 216 x10^3/uL (140-400) Neutrophils (%) (Auto) 70 % (31-73) 68 % (31-73) Lymphocytes (%) (Auto) 18 % (24-48) 21 % (24-48) Monocytes (%) (Auto) 10 % (0-9) 10 % (0-9) Eosinophils (%) (Auto) 1 % (0-3) 1 % (0-3) Basophils (%) (Auto) 1 % (0-3) 1 % (0-3) Neutrophils # (Auto) 8.2 x10^3/uL (1.8-7.7) 7.5 x10^3/uL (1.8-7.7) Lymphocytes # (Auto) 2.1 x10^3/uL (1.0-4.8) 2.3 x10^3/uL (1.0-4.8) Monocytes # (Auto) 1.1 x10^3/uL (0.0-1.1) 1.1 x10^3/uL (0.0-1.1) Eosinophils # (Auto) 0.1 x10^3/uL (0.0-0.7) 0.1 x10^3/uL (0.0-0.7) Basophils # (Auto) 0.1 x10^3/uL (0.0-0.2) 0.1 x10^3/uL (0.0-0.2) Segmented Neutrophils % 73 % (35-66) Band Neutrophils % 1 % (0-9) Lymphocytes % 22 % (24-48) Monocytes % 3 % (0-10) Basophils % 1 % (0-3) Platelet Estimate Adequate (ADEQUATE) Polychromasia Slight Basophilic Stippling Present Anisocytosis Slight Macrocytosis Mod Prothrombin Time 26.8 SEC (11.7-14.0) Prothromb Time International Ratio 2.5 (0.8-1.1) Activated Partial Thromboplast Time 60 SEC (24-38) Sodium Level 139 mmol/L (136-145) Potassium Level 5.1 mmol/L (3.5-5.1) Chloride Level 99 mmol/L (98-107) Carbon Dioxide Level 33 mmol/L (21-32) Anion Gap 7 (6-14) Blood Urea Nitrogen 60 mg/dL (8-26) Creatinine 7.6 mg/dL (0.7-1.3) Estimated GFR (Cockcroft-Gault) 6.9 BUN/Creatinine Ratio 8 (6-20) Glucose Level 173 mg/dL (70-99) Calcium Level 9.2 mg/dL (8.5-10.1) Total Bilirubin 0.5 mg/dL (0.2-1.0) Aspartate Amino Transf (AST/SGOT) 54 U/L (15-37) Alanine Aminotransferase (ALT/SGPT) 110 U/L (16-63) Alkaline Phosphatase 262 U/L (46-116) Troponin I Quantitative < 0.017 ng/mL (0.000-0.055) Total Protein 6.5 g/dL (6.4-8.2) Albumin 2.9 g/dL (3.4-5.0) Albumin/Globulin Ratio 0.8 (1.0-1.7) Glucose (Fingerstick) 157 mg/dL (70-99) 152 mg/dL (70-99) Assessment/Plan Assessment/Plan IMP ANEMIA REACTIVE LEUCOCYTOSIS ESRD GI BLEEDING ENCEPHALOPATHY AFIB SEVERE CHRONIC ANTICOAGULATION DM II HTN PLAN GI EVAL AND TX PRBC ASHER HD TODAY UF TO TW WILL FOLLOW JONAS MACDONALD MD Oct 27, 2020 11:07
[2020-10-27] MEDS ORDERED: MIDODRINE 5 MG TABLET PO ONE (11:15)
--- NOTE | 2020-10-27 11:59 | NUR ---
INDIRA following. Discussed with RN. INDIRA verified pt is a SNF resident at [facility], 2L, ada diet. PT/OT and COVID being ordered. Pt getting blood today. GI and Nephrology following. Updates to be sent to [facility]. INDIRA will continue to follow.
[2020-10-27] MEDS: INSULIN LISPRO 300 UNITS/3 ML VIAL. SQ SCH ×2 (12:00→17:00)
[2020-10-27] MEDS: PANTOPRAZOLE IV PUSH 40 MG VIAL. IVP SCH (12:48)
[2020-10-27 13:22] LABS: HEMATOCRIT 17.6 % (39.0-53.0)
[2020-10-27 13:23] LABS: HEMOGLOBIN 5.8 g/dL (13.0-17.5)
--- NOTE | 2020-10-27 13:24 | PDOC ---
Provider Note Date of Service: DATE: 10/27/20 TIME: 13:13 Provider Note IR NOTE Anticoagulated patient with lower gi bleed. INR 2.5, 1 unit FFP ordered. Hb now 6.1 CTA from 2.1.21 reviewed. No significant diverticular dz seen. Recommend prompt reversal of anticoagulation and transfusion to keep Hb 8 or higher. Justifications for Admission Other Justification limb ischemia LEILANI SANTAMARIA MD Oct 27, 2020 13:24
[2020-10-27] MEDS ORDERED: LIDOCAINE WITH 8.4% SOD BICARB 3 ML DISP.SYRIN. ONE (14:17)
[2020-10-27] MEDS ORDERED: IODIXANOL 320 MG/ML 100 ML VIAL. ONE (14:17)
[2020-10-27] MEDS ORDERED: HEPARIN for ARTERIAL LINE 1,500 ML ONE (14:17)
--- NOTE | 2020-10-27 14:54 | RAD ---
NUCLEAR MEDICINE GI BLEEDING STUDY Clinical indications: Hematochezia. On Coumadin. TECHNIQUE: After labeling of autologous red blood cells with 32 mCi of technetium 99m UltraTag, anter ior planar images of the abdomen and pelvis were performed in dynamic and static sequential fashion u p to 43 minutes. COMPARISON: No previous nuclear medicine GI bleeding study. FINDINGS: There is abnormal accumulation of radiotracer within the ascending colon with a more promin ent area of radiotracer activity involving the region of the hepatic flexure and proximal transverse colon. IMPRESSION: Active GI bleeding site is identified within the ascending colon and hepatic flexure and proximal transverse colon. Electronically signed by: Pedro Ruvalcaba MD (10/27/2020 2:52 PM) [id number]
[2020-10-27] MEDS ORDERED: IODIXANOL 320 MG/ML 100 ML VIAL. IART ONE (15:15)
[2020-10-27] MEDS ORDERED: LIDOCAINE WITH 8.4% SOD BICARB 3 ML DISP.SYRIN. IJ ONE (15:15)
--- NOTE | 2020-10-27 15:57 | PDOC ---
Provider Note Date of Service: DATE: 10/27/20 TIME: 15:54 Provider Note IR NOTE Lower gi bleed, Nucs tagged RBC scan + for cecum Patient hypotensive, with rapidly dropping Hb. Took him to Lab and found active bleed in ascending colon supplied by branch off right colic artery. Feeding artery coiled with apparent cessation of bleeding by angio. Right groin sheath left for arterial blood pressure monitoring, and because INR elevated with pending completion of FFP/reversal. Patient going to ICU. Justifications for Admission Other Justification limb ischemia LEILANI SANTAMARIA MD Oct 27, 2020 15:57
[2020-10-27 17:54] LABS: HEMATOCRIT 19.5 % (39.0-53.0); HEMOGLOBIN 6.8 g/dL (13.0-17.5)
[2020-10-27] MEDS ORDERED: IV NORMAL SALINE 1000ML BAG 1,000 ML IV PRN ×2 (18:45)
[2020-10-27] MEDS ORDERED: DIALYSIS PATIENT. MC PRN (18:45)
[2020-10-27 19:45] LABS: CALCIUM 8.2 mg/dL (8.5-10.1); GFR 7.6; POTASSIUM 4.8 mmol/L (3.5-5.1)
[2020-10-27 20:08] LABS: BASO # 0.1 x10^3/uL (0.0-0.2); BASO % 1 % (0-3); EOS # 0.1 x10^3/uL (0.0-0.7); EOS % 1 % (0-3); HEMATOCRIT 22.7 % (39.0-53.0); HEMOGLOBIN 7.9 g/dL (13.0-17.5); LYMPH # 1.5 x10^3/uL (1.0-4.8); LYMPH % 15 % (24-48); MEAN CORPUSCULAR HEMOGLOBIN 35 pg (25-35); MEAN CORPUSCULAR HGB CONC 35 g/dL (31-37); MEAN CORPUSCULAR VOLUME 99 fL (79-100); MONO # 0.7 x10^3/uL (0.0-1.1); MONO % 7 % (0-9); NEUT # 7.7 x10^3/uL (1.8-7.7); NEUT % 77 % (31-73); PLATELET COUNT 170 x10^3/uL (140-400); RED BLOOD COUNT 2.28 x10^6/uL (4.30-5.70); RED CELL DISTRIBUTION WIDTH 19.8 % (11.5-14.5); WHITE BLOOD COUNT 10.1 x10^3/uL (4.0-11.0)
[2020-10-27] MEDS ORDERED: DARBEPOETIN ALFA 25 MCG/0.42 ML DISP.SYRIN. SQ SCH (21:00)
[2020-10-27] MEDS ORDERED: DARBEPOETIN ALFA 40 MCG/0.4 ML DISP.SYRIN. SQ SCH (21:00)
[2020-10-27] MEDS ORDERED: PHYTONADIONE 10 MG/ML AMPUL. SQ ONE (22:00)
[2020-10-28] VITALS (30 sets, daily range): BP systolic 73–112; BP diastolic 25–66
[2020-10-28 03:22] LABS: BASO # 0.1 x10^3/uL (0.0-0.2); BASO % 1 % (0-3); EOS # 0.1 x10^3/uL (0.0-0.7); EOS % 1 % (0-3); HEMATOCRIT 21.2 % (39.0-53.0); HEMOGLOBIN 7.3 g/dL (13.0-17.5); LYMPH # 1.3 x10^3/uL (1.0-4.8); LYMPH % 12 % (24-48); MEAN CORPUSCULAR HEMOGLOBIN 34 pg (25-35); MEAN CORPUSCULAR HGB CONC 35 g/dL (31-37); MEAN CORPUSCULAR VOLUME 99 fL (79-100); MONO # 0.7 x10^3/uL (0.0-1.1); MONO % 7 % (0-9); NEUT # 8.1 x10^3/uL (1.8-7.7); NEUT % 79 % (31-73); PLATELET COUNT 167 x10^3/uL (140-400); RED BLOOD COUNT 2.14 x10^6/uL (4.30-5.70); RED CELL DISTRIBUTION WIDTH 19.8 % (11.5-14.5); WHITE BLOOD COUNT 10.2 x10^3/uL (4.0-11.0)
--- NOTE | 2020-10-28 03:32 | NUR ---
Had incontinent bloody stool with clots. Gave bed bath and changed linens. Patient A/O and assists with turning in bed. Talkative. Pleasant. Tolerated activity well. VSS. Lucas 0500 labs early. Hgb 7.9 at 1999. Hgb now 7.3 at 0300 lab draw. Free nursing test order per GI to transfuse 1unit RBC if Hgb <7.0. Resting in bed. Call light at hand. Placed order for next H&H for 0900.
[2020-10-28 05:35] LABS: PROTHROMBIN TIME PATIENT 21.4 SEC (11.7-14.0)
[2020-10-28] MEDS ORDERED: RENAL MULTIVIT PO (06:15)
[2020-10-28] MEDS ORDERED: INSU100I13 SQ (06:28)
[2020-10-28] MEDS ORDERED: SENN8.6T99 PO (06:31)
[2020-10-28] MEDS ORDERED: CARB1DRO20 OP (06:38)
[2020-10-28] MEDS ORDERED: DEXT1TAB17 PO (06:40)
[2020-10-28] MEDS ORDERED: VENTOLIN HFA18 GM INH (06:49)
[2020-10-28] MEDS ORDERED: INSU100V41 SQ (06:58)
[2020-10-28] MEDS: INSULIN LISPRO 300 UNITS/3 ML VIAL. SQ SCH ×3 (08:00→17:00)
[2020-10-28 09:41] LABS: HEMATOCRIT 19.9 % (39.0-53.0); HEMOGLOBIN 6.8 g/dL (13.0-17.5)
--- NOTE | 2020-10-28 10:09 | PDOC ---
Date of Service: DATE: 10/28/20 TIME: 10:04 Subjective: Subjective: Feels better, wants some orange juice. Objective: Objective: D/w nurse - stool w/o blood this morning. IR note: ...active bleed in ascending colon supplied by branch off right colic artery. Feeding artery coiled with apparent cessation of bleeding by angio. Right groin sheath left for arterial blood pressure monitoring, and because INR elevated with pending completion of FFP/reversal. Vital Signs: Vital Signs Date Time Temp Pulse Resp B/P (MAP) Pulse Ox O2 Delivery O2 Flow Rate FiO2 10/28/20 06:09 86 18 110/36 (60) 99 Nasal Cannula 2.0 10/28/20 00:57 97.9 97.9 Labs: Laboratory Tests Test 10/27/20 11:05 10/27/20 11:10 10/27/20 12:55 10/27/20 17:44 SARS-CoV-2 RNA (ANA PAULA) Negative SARS-CoV-2 Antigen (Rapid) Negative Hemoglobin 5.8 g/dL 6.8 g/dL Hematocrit 17.6 % 19.5 % Mean Corpuscular Hemoglobin Concent 33 g/dL 35 g/dL Glucose (Fingerstick) 198 mg/dL Test 10/27/20 19:15 10/27/20 20:00 10/28/20 03:00 10/28/20 05:00 Sodium Level 141 mmol/L Potassium Level 4.8 mmol/L Chloride Level 103 mmol/L Carbon Dioxide Level 29 mmol/L Anion Gap 9 Blood Urea Nitrogen 62 mg/dL Creatinine 7.0 mg/dL Estimated GFR (Cockcroft-Gault) 7.6 Glucose Level 188 mg/dL Calcium Level 8.2 mg/dL White Blood Count 10.1 x10^3/uL 10.2 x10^3/uL Red Blood Count 2.28 x10^6/uL 2.14 x10^6/uL Hemoglobin 7.9 g/dL 7.3 g/dL Hematocrit 22.7 % 21.2 % Mean Corpuscular Volume 99 fL 99 fL Mean Corpuscular Hemoglobin 35 pg 34 pg Mean Corpuscular Hemoglobin Concent 35 g/dL 35 g/dL Red Cell Distribution Width 19.8 % 19.8 % Platelet Count 170 x10^3/uL 167 x10^3/uL Neutrophils (%) (Auto) 77 % 79 % Lymphocytes (%) (Auto) 15 % 12 % Monocytes (%) (Auto) 7 % 7 % Eosinophils (%) (Auto) 1 % 1 % Basophils (%) (Auto) 1 % 1 % Neutrophils # (Auto) 7.7 x10^3/uL 8.1 x10^3/uL Lymphocytes # (Auto) 1.5 x10^3/uL 1.3 x10^3/uL Monocytes # (Auto) 0.7 x10^3/uL 0.7 x10^3/uL Eosinophils # (Auto) 0.1 x10^3/uL 0.1 x10^3/uL Basophils # (Auto) 0.1 x10^3/uL 0.1 x10^3/uL Prothrombin Time 21.4 SEC Prothromb Time International Ratio 1.9 Test 10/28/20 08:55 Hemoglobin 6.8 g/dL Hematocrit 19.9 % Imaging: Bleed Scan IMPRESSION: Active GI bleeding site is identified within the ascending colon and hepatic flexure and proximal transverse colon. Angio pending PE: GEN: NAD - looks better today LUNGS: clear, NC 2L HEART: reg rate ABD: quiet BS, soft, non-tender NEURO/PSYCH: A & O 3 A/P: Lower GI bleed s/p IR coil Anemia - requiring transfusions (3 units pRBCs so far) H/o A Fib anticoagulated w/ Coumadin - INR 1.9 s/p FFP x2 ESRD on HD COVID negative -- D/w Dr. Young lemus for few sips of clears (sparingly). Monitor, transfuse as needed. Justicifation of Admission Dx: Justifications for Admission: Justification of Admission Dx: Yes TONY FUENTES Oct 28, 2020 10:09
--- NOTE | 2020-10-28 10:11 | RAD ---
10/27/2020 1. Mesenteric angiogram, including selective angiography of the SMA, right colic artery, and third or medina and distal branches of the right colic artery 2. Clinical embolization of right colic artery branches secondary to active extravasation in the prox imal colon. Consent: The procedure was explained in its entirety to the patient or the patients designated repres entative by a member of the treatment team, including a discussion of the risks, benefits and commonl y accepted alternatives to the procedure, as well as the expected consequences of no therapy whatsoev er. Discussion of the risks included, but was not limited to, those that are most frequent and thos e that are rare but possibly severe or life-threatening, as well as the possibility of unforeseen com plications. The patient was prepped and draped using maximum sterile technique, including the use of: Current brett deline approved cutaneous antisepsis, a large sterile sheet to establish a sterile field. Additionall y the ad terminal makeup operator wore a hat, mask, sterile gloves, a sterile gown during the procedure as well as pract iced acceptable hand hygiene prior to placing the line. Prior angiography was reviewed. Prior CTA was reviewed. Nuclear medicine study obtained immediately p rior exam demonstrated bleeding in the right abdomen consistent with proximal colon.. The patient is known to have a high bifurcation of the SFA and profunda artery, above the level of the hip. There is essentially no common femoral artery. The right SFA was evaluated by ultrasound and found to be santos nt. The right SFA was accessed under direct ultrasound guidance using micropuncture technique. Refere [facility] ultrasound images were saved medical record. A 5 [place] sheath was placed. Catheter was advanced into the ostium of the superior mesenteric artery. Angiograms were obtained dem onstrating active extravasation of contrast in the right lower quadrant consistent with a proximal cl inically. A microcatheter was advanced into the more distal SMA, and into the ileocolic artery though no extravasation was seen from this position. A microcatheter was then repositioned in the right col ic artery and angiograms were obtained again demonstrating active extravasation. The catheter was adv anced into the third order and smaller branches of the right colic artery, active bleeding from selec mady arteries was identified. Coil embolization of this artery was . The catheter was withdrawn into the right colic artery and repeat angiograms were performed demonstra ting no persistent active extravasation. Angiograms were performed with the sheath demonstrating a ar terial puncture over the mid femoral head. Sheath was left in place secondary persistent hypotension in need for arterial monitoring as well as patient's anticoagulation. The patient was transferred to the ICU in critical but unchanged condition. No immediate complications were identified. Total fluoroscopy time: 11.6 minutes Dose area product 1289 Torres centimeter squared Anesthesia: Local only IMPRESSION: Active bleeding arising from a branches of the right colic artery treated with coil embol ization Electronically signed by: Chaparro Evans MD (10/28/2020 10:08 AM) [id number]
--- NOTE | 2020-10-28 10:11 | RAD ---
10/27/2020 1. Mesenteric angiogram, including selective angiography of the SMA, right colic artery, and third or medina and distal branches of the right colic artery 2. Clinical embolization of right colic artery branches secondary to active extravasation in the prox imal colon. Consent: The procedure was explained in its entirety to the patient or the patients designated repres entative by a member of the treatment team, including a discussion of the risks, benefits and commonl y accepted alternatives to the procedure, as well as the expected consequences of no therapy whatsoev er. Discussion of the risks included, but was not limited to, those that are most frequent and thos e that are rare but possibly severe or life-threatening, as well as the possibility of unforeseen com plications. The patient was prepped and draped using maximum sterile technique, including the use of: Current brett deline approved cutaneous antisepsis, a large sterile sheet to establish a sterile field. Additionall y the crusher and blender operator wore a hat, mask, sterile gloves, a sterile gown during the procedure as well as pract iced acceptable hand hygiene prior to placing the line. Prior angiography was reviewed. Prior CTA was reviewed. Nuclear medicine study obtained immediately p rior exam demonstrated bleeding in the right abdomen consistent with proximal colon.. The patient is known to have a high bifurcation of the SFA and profunda artery, above the level of the hip. There is essentially no common femoral artery. The right SFA was evaluated by ultrasound and found to be santos nt. The right SFA was accessed under direct ultrasound guidance using micropuncture technique. Refere [facility] ultrasound images were saved medical record. A 5 Cook Islander sheath was placed. Catheter was advanced into the ostium of the superior mesenteric artery. Angiograms were obtained dem onstrating active extravasation of contrast in the right lower quadrant consistent with a proximal cl inically. A microcatheter was advanced into the more distal SMA, and into the ileocolic artery though no extravasation was seen from this position. A microcatheter was then repositioned in the right col ic artery and angiograms were obtained again demonstrating active extravasation. The catheter was adv anced into the third order and smaller branches of the right colic artery, active bleeding from selec mady arteries was identified. Coil embolization of this artery was . The catheter was withdrawn into the right colic artery and repeat angiograms were performed demonstra ting no persistent active extravasation. Angiograms were performed with the sheath demonstrating a ar terial puncture over the mid femoral head. Sheath was left in place secondary persistent hypotension in need for arterial monitoring as well as patient's anticoagulation. The patient was transferred to the ICU in critical but unchanged condition. No immediate complications were identified. Total fluoroscopy time: 11.6 minutes Dose area product 1289 Torres centimeter squared Anesthesia: Local only IMPRESSION: Active bleeding arising from a branches of the right colic artery treated with coil embol ization Electronically signed by: Chaparro Evans MD (10/28/2020 10:08 AM) [id number]
--- NOTE | 2020-10-28 10:45 | PDOC ---
[facility] PROGRESS NOTE Date of Service DOS: DATE: 10/28/20 TIME: 10:38 Chief Complaint Chief Complaint A/P: Rectal bleeding - possibly from AVM. Acute anemia - large drop from GI bleed. GI consulted. 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 PAD of left lower extremity - 04/15/2020 - s/p left popliteal angioplasty and stenting and left posterior tibial balloon angioplasty History of end-stage renal disease on hemodialysis Chronic congestive heart failure combined systolic and diastolic dysfunction EF 45% History of atrial fibrillation and prior pulmonary embolism on chronic anticoagulation with Coumadin Essential hypertension Dyslipidemia - cont statin DM2 with Hyperglycemia - sliding scale Leukocytosis - stress related, likely Severe aortic stenosis - Calculated aortic valve maximum pressure gradient of 58 mmHg and mean pressure gradient of 40 mmHg Moderate eccentric aortic regurgitation. Pulmonary HTN - RVSP 40 mm Hg Transaminitis - unclear etiology, likely related to hypovolemia, will monitor trend FEN - NPO PPX - SCDs, PPI FULL CODE Dispo - inpatient History of Present Illness History of Present Illness Mr Castellanos is an 80 yo male with a past medical history DVT/PE, PAD, Gout, BPH, OA, [place], atrial fibrillation, CHF, diabetes, ESRD (MWF) presents for evaluation of rectal bleeding. Patient is on Coumadin for his atrial fibrillation and Hx of PE/DVT. Prior to arrival patient passed several large clots per rectum. Patient denies any associated abdominal pain, but does note he is little more short of breath and fatigue which has gotten worse over the past couple of days. WBC 11.7, Hb 8.7, platelets 228, INR 2.5, PTT 61 NA 139, K5.1, BUN 60, CR 7.6, glucose 133 bilirubin 0.5, AST 54, ALT 112 alk phos decreased to 62, albumin 2.9, troponin 0 EKG regular rhythm and rate around 67bpm. No acute ST segment changes or T WI. After another bloody bowel movement repeat hemoglobin was 6.1. 10/28/2020: Afebrile. Had bleeding scan yesterday that showed active GI bleeding site is identified within the ascending colon and hepatic flexure and proximal transverse colon. Active bleeding treated with coil embolization. Hemoglobin improved to 7.9 yesterday, but dropped to 6.8 today. Because INR still elevated will complete FFP for reversal agent, and transfuse additional 1 unit PRBC. Discussed with RN. Critical care time 30 minutes spent reviewing charts, labs, reviewing imaging, discussion with RN. Vitals/I&O Vitals/I&O: Vital Signs Date Time Temp Pulse Resp B/P (MAP) Pulse Ox O2 Delivery O2 Flow Rate FiO2 10/28/20 06:09 86 18 110/36 (60) 99 Nasal Cannula 2.0 10/28/20 00:57 97.9 97.9 I & O 10/27/20 10/27/20 10/28/20 15:00 23:00 07:00 Intake Total 1243 ml 3821 ml 0 ml Output Total 1 ml Balance 1243 ml 3821 ml -1 ml Physical Exam General: Alert, Cooperative, No acute distress Heart: Regular rate Lungs: Clear Abdomen: Normal bowel sounds, Soft, No tenderness Extremities: No clubbing Skin: No breakdown Labs Labs: Laboratory Tests Test 10/27/20 11:05 10/27/20 11:10 10/27/20 12:55 10/27/20 17:44 SARS-CoV-2 RNA (ANA PAULA) Negative (Negative) SARS-CoV-2 Antigen (Rapid) Negative (NEGATIVE) Hemoglobin 5.8 g/dL (13.0-17.5) 6.8 g/dL (13.0-17.5) Hematocrit 17.6 % (39.0-53.0) 19.5 % (39.0-53.0) Mean Corpuscular Hemoglobin Concent 33 g/dL (31-37) 35 g/dL (31-37) Glucose (Fingerstick) 198 mg/dL (70-99) Test 10/27/20 19:15 10/27/20 20:00 10/28/20 03:00 10/28/20 05:00 Sodium Level 141 mmol/L (136-145) Potassium Level 4.8 mmol/L (3.5-5.1) Chloride Level 103 mmol/L (98-107) Carbon Dioxide Level 29 mmol/L (21-32) Anion Gap 9 (6-14) Blood Urea Nitrogen 62 mg/dL (8-26) Creatinine 7.0 mg/dL (0.7-1.3) Estimated GFR (Cockcroft-Gault) 7.6 Glucose Level 188 mg/dL (70-99) Calcium Level 8.2 mg/dL (8.5-10.1) White Blood Count 10.1 x10^3/uL (4.0-11.0) 10.2 x10^3/uL (4.0-11.0) Red Blood Count 2.28 x10^6/uL (4.30-5.70) 2.14 x10^6/uL (4.30-5.70) Hemoglobin 7.9 g/dL (13.0-17.5) 7.3 g/dL (13.0-17.5) Hematocrit 22.7 % (39.0-53.0) 21.2 % (39.0-53.0) Mean Corpuscular Volume 99 fL (79-100) 99 fL (79-100) Mean Corpuscular Hemoglobin 35 pg (25-35) 34 pg (25-35) Mean Corpuscular Hemoglobin Concent 35 g/dL (31-37) 35 g/dL (31-37) Red Cell Distribution Width 19.8 % (11.5-14.5) 19.8 % (11.5-14.5) Platelet Count 170 x10^3/uL (140-400) 167 x10^3/uL (140-400) Neutrophils (%) (Auto) 77 % (31-73) 79 % (31-73) Lymphocytes (%) (Auto) 15 % (24-48) 12 % (24-48) Monocytes (%) (Auto) 7 % (0-9) 7 % (0-9) Eosinophils (%) (Auto) 1 % (0-3) 1 % (0-3) Basophils (%) (Auto) 1 % (0-3) 1 % (0-3) Neutrophils # (Auto) 7.7 x10^3/uL (1.8-7.7) 8.1 x10^3/uL (1.8-7.7) Lymphocytes # (Auto) 1.5 x10^3/uL (1.0-4.8) 1.3 x10^3/uL (1.0-4.8) Monocytes # (Auto) 0.7 x10^3/uL (0.0-1.1) 0.7 x10^3/uL (0.0-1.1) Eosinophils # (Auto) 0.1 x10^3/uL (0.0-0.7) 0.1 x10^3/uL (0.0-0.7) Basophils # (Auto) 0.1 x10^3/uL (0.0-0.2) 0.1 x10^3/uL (0.0-0.2) Prothrombin Time 21.4 SEC (11.7-14.0) Prothromb Time International Ratio 1.9 (0.8-1.1) Test 10/28/20 08:55 Hemoglobin 6.8 g/dL (13.0-17.5) Hematocrit 19.9 % (39.0-53.0) Assessment and Plan Assessmemt and Plan Problems Medical Problems: (1) ESRD (end stage renal disease) Status: Acute (2) Rectal bleeding Status: Acute Comment Review of Relevant I have reviewed the following items juventino (where applicable) has been applied. Medications: Current Medications Medications (Trade) Dose Ordered Sig/Janee Route PRN Reason Start Time Stop Time Status Last Admin Dose Admin Pantoprazole Sodium (PROTONIX VIAL for IV PUSH) 40 mg DAILYAC IVP 10/27/20 11:00 10/27/20 12:48 Darbepoetin Yaw (ARANESP for DIALYSIS PTS) 40 mcg Mo SQ 10/27/20 21:00 10/27/20 21:31 Midodrine (Proamatine) 5 mg 1X ONCE PO 10/27/20 11:15 10/27/20 11:24 DC 10/27/20 12:00 Darbepoetin Yaw (ARANESP for DIALYSIS PTS) 25 mcg Mo SQ 10/27/20 21:00 10/27/20 21:31 Lidocaine HCl (Buffered Lidocaine 1%) 3 ml 1X ONCE IJ 10/27/20 15:15 10/27/20 15:16 DC 10/27/20 15:41 Iodixanol (Visipaque 320) 100 ml 1X ONCE IART 10/27/20 15:15 10/27/20 15:16 DC 10/27/20 15:41 Heparin Sodium/ Sodium Chloride (HEPARIN for ARTERIAL LINE FLUSH) 1,000 unit 1X ONCE IART 10/27/20 15:45 10/27/20 15:46 DC 10/27/20 15:45 Heparin Sodium/ Sodium Chloride (HEPARIN for ARTERIAL LINE FLUSH) 1,000 unit 1X ONCE IART 10/27/20 15:45 10/27/20 15:46 DC 10/27/20 15:45 Phytonadione (Vitamin K Ampule) 10 mg 1X ONCE SQ 10/27/20 22:00 10/27/20 22:01 DC 10/27/20 22:19 Justifications for Admission Other Justification limb ischemia BREN MCKNIGHT MD Oct 28, 2020 10:45
--- NOTE | 2020-10-28 11:33 | PDOC ---
Renal-Progress Notes Subjective Notes Notes NO COMPLAINTS History of Present Illness Hx of present illness CONFUSED STILL, IMPROVED Vitals Vitals Vital Signs Date Time Temp Pulse Resp B/P (MAP) Pulse Ox O2 Delivery O2 Flow Rate FiO2 10/28/20 06:09 86 18 110/36 (60) 99 Nasal Cannula 2.0 10/28/20 00:57 97.9 97.9 Weight Weight [ ] I.O. Intake and Output Intake and Output 10/28/20 07:00 Intake Total 5064 ml Output Total 1 ml Balance 5063 ml Intake Oral 240 ml Blood Product 1400 ml Blood Product IV Normal Saline Flush 3424 ml Output Stool Total 1 ml Labs Labs Laboratory Tests Test 10/27/20 12:55 10/27/20 17:44 10/27/20 19:15 10/27/20 20:00 Glucose (Fingerstick) 198 mg/dL (70-99) Hemoglobin 6.8 g/dL (13.0-17.5) 7.9 g/dL (13.0-17.5) Hematocrit 19.5 % (39.0-53.0) 22.7 % (39.0-53.0) Mean Corpuscular Hemoglobin Concent 35 g/dL (31-37) 35 g/dL (31-37) Sodium Level 141 mmol/L (136-145) Potassium Level 4.8 mmol/L (3.5-5.1) Chloride Level 103 mmol/L (98-107) Carbon Dioxide Level 29 mmol/L (21-32) Anion Gap 9 (6-14) Blood Urea Nitrogen 62 mg/dL (8-26) Creatinine 7.0 mg/dL (0.7-1.3) Estimated GFR (Cockcroft-Gault) 7.6 Glucose Level 188 mg/dL (70-99) Calcium Level 8.2 mg/dL (8.5-10.1) White Blood Count 10.1 x10^3/uL (4.0-11.0) Red Blood Count 2.28 x10^6/uL (4.30-5.70) Mean Corpuscular Volume 99 fL (79-100) Mean Corpuscular Hemoglobin 35 pg (25-35) Red Cell Distribution Width 19.8 % (11.5-14.5) Platelet Count 170 x10^3/uL (140-400) Neutrophils (%) (Auto) 77 % (31-73) Lymphocytes (%) (Auto) 15 % (24-48) Monocytes (%) (Auto) 7 % (0-9) Eosinophils (%) (Auto) 1 % (0-3) Basophils (%) (Auto) 1 % (0-3) Neutrophils # (Auto) 7.7 x10^3/uL (1.8-7.7) Lymphocytes # (Auto) 1.5 x10^3/uL (1.0-4.8) Monocytes # (Auto) 0.7 x10^3/uL (0.0-1.1) Eosinophils # (Auto) 0.1 x10^3/uL (0.0-0.7) Basophils # (Auto) 0.1 x10^3/uL (0.0-0.2) Test 10/28/20 03:00 10/28/20 05:00 10/28/20 08:55 White Blood Count 10.2 x10^3/uL (4.0-11.0) Red Blood Count 2.14 x10^6/uL (4.30-5.70) Hemoglobin 7.3 g/dL (13.0-17.5) 6.8 g/dL (13.0-17.5) Hematocrit 21.2 % (39.0-53.0) 19.9 % (39.0-53.0) Mean Corpuscular Volume 99 fL (79-100) Mean Corpuscular Hemoglobin 34 pg (25-35) Mean Corpuscular Hemoglobin Concent 35 g/dL (31-37) Red Cell Distribution Width 19.8 % (11.5-14.5) Platelet Count 167 x10^3/uL (140-400) Neutrophils (%) (Auto) 79 % (31-73) Lymphocytes (%) (Auto) 12 % (24-48) Monocytes (%) (Auto) 7 % (0-9) Eosinophils (%) (Auto) 1 % (0-3) Basophils (%) (Auto) 1 % (0-3) Neutrophils # (Auto) 8.1 x10^3/uL (1.8-7.7) Lymphocytes # (Auto) 1.3 x10^3/uL (1.0-4.8) Monocytes # (Auto) 0.7 x10^3/uL (0.0-1.1) Eosinophils # (Auto) 0.1 x10^3/uL (0.0-0.7) Basophils # (Auto) 0.1 x10^3/uL (0.0-0.2) Prothrombin Time 21.4 SEC (11.7-14.0) Prothromb Time International Ratio 1.9 (0.8-1.1) Review of Systems Constitutional: yes: other (CONFUSED) Physical Exam General Appearance: no apparent distress Skin: warm Respiratory: decreased breath sounds Heart: S1S2 Abdomen: soft, bowel sounds present Genitourinary: bladder flat Extremities: pulses present Neurology: alert, confused Assessment Assessment IMP ANEMIA IRON DEFICIENCY REACTIVE LEUCOCYTOSIS ESRD GI BLEEDING-S/P COILING ENCEPHALOPATHY AFIB SEVERE CHRONIC ANTICOAGULATION DM II HTN PLAN GI EVAL AND TX PRBC NEEDED ASHER HD TOMORROW IV VENOFER WILL FOLLOW JONAS MACDONALD MD Oct 28, 2020 11:33
[2020-10-28] MEDS ORDERED: IRON SUCROSE COMPLEX 500 MG in IV NORMAL SALINE 250ML 250 ML IV ONE (12:00)
--- NOTE | 2020-10-28 14:38 | NUR ---
Right Femoral Artery 5f Sheath removed at the bedside per this technologist. Prior to pulling sheath I aspirated the side port. Manual pressure was held for 10 minutes. Physician and RN checked site post hemostasis. Sterile dressing applied to site.
--- NOTE | 2020-10-28 15:22 | NUR ---
Late entry. Incont large bloody stool./no clots. Ella -care and linen change as needed. Call from Dr Evans w orders.BB aware of FFP need. Will call when thawed. Hypotension w increase in heart rate over a 15-20 " period time Sed med bolus of little effect. An IV tubing is leaking all over the floor. Ativan IVP- all lines changed. Dr Ruth informed of tachyarrhythmia. to unit w orders note. assist in patient care from charge Wild LUCERO. IVP med bolus till tubing functional. Unable to obtain NBP. Lo dose levo started and titrated accordingly w return of NBP to baseline and normal heart rate. Pressure labile /stabilized later am. Fluid bolsus as ordered then Dc'd per MD mendoza climbing sugars.Continue to monitor closel w med changes per order.
[2020-10-28] MEDS: PANTOPRAZOLE IV PUSH 40 MG VIAL. IVP SCH (16:03)
--- NOTE | 2020-10-28 16:20 | NUR ---
SS following for discharge planning. SS reviewed pt chart and discussed with pt RN. Pt is skilled rehabilitation resident from [facility], ; fax [phone]. COVID19 negative. Pt getting FFP and Blood. H&H being monitored. SS will continue to follow for discharge planning.
[2020-10-29] VITALS (18 sets, daily range): BP systolic 75–157; BP diastolic 28–78
[2020-10-29 06:41] LABS: HEMATOCRIT 21.4 % (39.0-53.0); HEMOGLOBIN 7.2 g/dL (13.0-17.5); RED BLOOD COUNT 2.15 x10^6/uL (4.30-5.70); RED CELL DISTRIBUTION WIDTH 20.4 % (11.5-14.5); WHITE BLOOD COUNT 7.9 x10^3/uL (4.0-11.0)
[2020-10-29 07:03] LABS: PROTHROMBIN TIME PATIENT 16.7 SEC (11.7-14.0)
[2020-10-29] MEDS: PANTOPRAZOLE IV PUSH 40 MG VIAL. IVP SCH (07:30)
[2020-10-29] MEDS: INSULIN LISPRO 300 UNITS/3 ML VIAL. SQ SCH ×3 (08:00→17:00)
[2020-10-29 08:18] LABS: MAGNESIUM 2.3 mg/dL (1.8-2.4); PHOSPHORUS 5.1 mg/dL (2.6-4.7)
[2020-10-29 08:22] LABS: ALBUMIN 2.4 g/dL (3.4-5.0); ALBUMIN/GLOBULIN RATIO 0.8 (1.0-1.7); CALCIUM 8.6 mg/dL (8.5-10.1); CREATININE 6.1 mg/dL (0.7-1.3); GFR 8.9; POTASSIUM 4.2 mmol/L (3.5-5.1); TOTAL BILIRUBIN 0.7 mg/dL (0.2-1.0); TOTAL PROTEIN 5.5 g/dL (6.4-8.2)
[2020-10-29] MEDS ORDERED: DIALYSIS PATIENT. MC PRN (08:45)
[2020-10-29] MEDS ORDERED: ALBUMIN HUMAN 25% 200 ML IV PRN (08:45)
[2020-10-29] MEDS ORDERED: IV NORMAL SALINE 1000ML BAG 1,000 ML IV PRN ×2 (08:45)
--- NOTE | 2020-10-29 09:23 | PDOC ---
[employer] PROGRESS NOTE Date of Service DOS: DATE: 10/29/20 TIME: 09:21 Chief Complaint Chief Complaint A/P: Rectal bleeding - possibly from AVM. Acute anemia - large drop from GI bleed. GI consulted. 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 PAD of left lower extremity - 04/15/2020 - s/p left popliteal angioplasty and stenting and left posterior tibial balloon angioplasty History of end-stage renal disease on hemodialysis Chronic congestive heart failure combined systolic and diastolic dysfunction EF 45% History of atrial fibrillation and prior pulmonary embolism on chronic anticoagulation with Coumadin Essential hypertension Dyslipidemia - cont statin DM2 with Hyperglycemia - sliding scale Leukocytosis - stress related, likely Severe aortic stenosis - Calculated aortic valve maximum pressure gradient of 58 mmHg and mean pressure gradient of 40 mmHg Moderate eccentric aortic regurgitation. Pulmonary HTN - RVSP 40 mm Hg Transaminitis - unclear etiology, likely related to hypovolemia, will monitor trend FEN - NPO PPX - SCDs, PPI FULL CODE Dispo - inpatient History of Present Illness History of Present Illness Mr Castellanos is an 80 yo male with a past medical history DVT/PE, PAD, Gout, BPH, OA, [place], atrial fibrillation, CHF, diabetes, ESRD (MWF) presents for evaluation of rectal bleeding. Patient is on Coumadin for his atrial fibrillation and Hx of PE/DVT. Prior to arrival patient passed several large clots per rectum. Patient denies any associated abdominal pain, but does note he is little more short of breath and fatigue which has gotten worse over the past couple of days. WBC 11.7, Hb 8.7, platelets 228, INR 2.5, PTT 61 NA 139, K5.1, BUN 60, CR 7.6, glucose 133 bilirubin 0.5, AST 54, ALT 112 alk phos decreased to 62, albumin 2.9, troponin 0 EKG regular rhythm and rate around 67bpm. No acute ST segment changes or T WI. After another bloody bowel movement repeat hemoglobin was 6.1. 10/28/2020: Afebrile. Had bleeding scan yesterday that showed active GI bleeding site is identified within the ascending colon and hepatic flexure and proximal transverse colon. Active bleeding treated with coil embolization. Hemoglobin improved to 7.9 yesterday, but dropped to 6.8 today. Because INR still elevated will complete FFP for reversal agent, and transfuse additional 1 unit PRBC. Discussed with RN. Critical care time 30 minutes spent reviewing charts, labs, reviewing imaging, discussion with RN. 10/29/2020: Afebrile. Breathing comfortably on 2 L nasal cannula. INR 1.4 today, Hb 7.2 today. Bleeding seems to have clinically ceased. Per GI, will hold warfarin for at least 1 week due to diverticulosis or AVM as possible cause of bleeding. He received hemodialysis today. He is okay to transfer out of ICU and initiate clear liquid diet. Critical care time 30 minutes spent reviewing charts, labs, reviewing imaging, discussion with RN. Vitals/I&O Vitals/I&O: Vital Signs Date Time Temp Pulse Resp B/P (MAP) Pulse Ox O2 Delivery O2 Flow Rate FiO2 10/29/20 06:00 77 26 104/52 (69) 99 Nasal Cannula 2.0 10/29/20 04:00 98.4 98.4 I & O 10/28/20 10/28/20 10/29/20 15:00 23:00 07:00 Intake Total 655 ml 200 ml 650 ml Balance 655 ml 200 ml 650 ml Physical Exam General: Alert, Cooperative, No acute distress Heart: Regular rate Lungs: Clear Abdomen: Normal bowel sounds, Soft, No tenderness Extremities: No clubbing Skin: No breakdown Labs Labs: Laboratory Tests Test 10/28/20 16:01 10/29/20 05:30 10/29/20 06:30 Glucose (Fingerstick) 171 mg/dL (70-99) White Blood Count 7.9 x10^3/uL (4.0-11.0) Red Blood Count 2.15 x10^6/uL (4.30-5.70) Hemoglobin 7.2 g/dL (13.0-17.5) Hematocrit 21.4 % (39.0-53.0) Mean Corpuscular Volume 100 fL (79-100) Mean Corpuscular Hemoglobin 34 pg (25-35) Mean Corpuscular Hemoglobin Concent 34 g/dL (31-37) Red Cell Distribution Width 20.4 % (11.5-14.5) Platelet Count 163 x10^3/uL (140-400) Sodium Level 141 mmol/L (136-145) Potassium Level 4.2 mmol/L (3.5-5.1) Chloride Level 100 mmol/L (98-107) Carbon Dioxide Level 28 mmol/L (21-32) Anion Gap 13 (6-14) Blood Urea Nitrogen 47 mg/dL (8-26) Creatinine 6.1 mg/dL (0.7-1.3) Estimated GFR (Cockcroft-Gault) 8.9 BUN/Creatinine Ratio 8 (6-20) Glucose Level 154 mg/dL (70-99) Calcium Level 8.6 mg/dL (8.5-10.1) Phosphorus Level 5.1 mg/dL (2.6-4.7) Magnesium Level 2.3 mg/dL (1.8-2.4) Total Bilirubin 0.7 mg/dL (0.2-1.0) Aspartate Amino Transf (AST/SGOT) 20 U/L (15-37) Alanine Aminotransferase (ALT/SGPT) 45 U/L (16-63) Alkaline Phosphatase 128 U/L (46-116) Total Protein 5.5 g/dL (6.4-8.2) Albumin 2.4 g/dL (3.4-5.0) Albumin/Globulin Ratio 0.8 (1.0-1.7) Prothrombin Time 16.7 SEC (11.7-14.0) Prothromb Time International Ratio 1.4 (0.8-1.1) Assessment and Plan Assessmemt and Plan Problems Medical Problems: (1) ESRD (end stage renal disease) Status: Acute (2) Rectal bleeding Status: Acute Comment Review of Relevant I have reviewed the following items juventino (where applicable) has been applied. Medications: Current Medications Medications (Trade) Dose Ordered Sig/Janee Route PRN Reason Start Time Stop Time Status Last Admin Dose Admin Iron Sucrose 500 mg/Sodium Chloride 275 ml @ 78.571 mls/ hr 1X ONCE IV 10/28/20 12:00 10/28/20 15:29 DC 10/28/20 16:05 Justifications for Admission Other Justification limb ischemia BREN MCKNIGHT MD Oct 29, 2020 09:23
--- NOTE | 2020-10-29 10:06 | PDOC ---
Date of Service: DATE: 10/29/20 TIME: 10:02 Subjective: Subjective: Says no bleeding. Feeling better. Sips of water. Hungry. Objective: Objective: Nursing note reviewed. Vital Signs: Vital Signs Date Time Temp Pulse Resp B/P (MAP) Pulse Ox O2 Delivery O2 Flow Rate FiO2 10/29/20 06:00 77 26 104/52 (69) 99 Nasal Cannula 2.0 10/29/20 04:00 98.4 98.4 Labs: Laboratory Tests Test 10/28/20 16:01 10/29/20 05:30 10/29/20 06:30 Glucose (Fingerstick) 171 mg/dL White Blood Count 7.9 x10^3/uL Red Blood Count 2.15 x10^6/uL Hemoglobin 7.2 g/dL Hematocrit 21.4 % Mean Corpuscular Volume 100 fL Mean Corpuscular Hemoglobin 34 pg Mean Corpuscular Hemoglobin Concent 34 g/dL Red Cell Distribution Width 20.4 % Platelet Count 163 x10^3/uL Sodium Level 141 mmol/L Potassium Level 4.2 mmol/L Chloride Level 100 mmol/L Carbon Dioxide Level 28 mmol/L Anion Gap 13 Blood Urea Nitrogen 47 mg/dL Creatinine 6.1 mg/dL Estimated GFR (Cockcroft-Gault) 8.9 BUN/Creatinine Ratio 8 Glucose Level 154 mg/dL Calcium Level 8.6 mg/dL Phosphorus Level 5.1 mg/dL Magnesium Level 2.3 mg/dL Total Bilirubin 0.7 mg/dL Aspartate Amino Transf (AST/SGOT) 20 U/L Alanine Aminotransferase (ALT/SGPT) 45 U/L Alkaline Phosphatase 128 U/L Total Protein 5.5 g/dL Albumin 2.4 g/dL Albumin/Globulin Ratio 0.8 Prothrombin Time 16.7 SEC Prothromb Time International Ratio 1.4 PE: GEN: dialyzing LUNGS: NC, bit tachypneic HEART: RRR ABD: soft, non-tender NEURO/PSYCH: A & O 3 A/P: Lower GI bleed s/p IR coil Anemia - stable w/ transfusions H/o A Fib anticoagulated w/ Coumadin - INR down to 1.4 ESRD on HD COVID negative -- ?still bleeding - need to clarify w nurse. Okay for clears. Monitor. Justicifation of Admission Dx: Justifications for Admission: Justification of Admission Dx: Yes TONY FUENTES Oct 29, 2020 10:06
--- NOTE | 2020-10-29 10:38 | PDOC ---
Renal-Progress Notes Subjective Notes Notes NO COMPLAINTS History of Present Illness Hx of present illness STABLE Vitals Vitals Vital Signs Date Time Temp Pulse Resp B/P (MAP) Pulse Ox O2 Delivery O2 Flow Rate FiO2 10/29/20 06:00 77 26 104/52 (69) 99 Nasal Cannula 2.0 10/29/20 04:00 98.4 98.4 Weight Weight [ ] I.O. Intake and Output Intake and Output 10/29/20 07:00 Intake Total 1505 ml Balance 1505 ml Intake Oral 455 ml Blood Product 300 ml Blood Product IV Normal Saline Flush 750 ml # Bowel Movements 1 Labs Labs Laboratory Tests Test 10/28/20 16:01 10/29/20 05:30 10/29/20 06:30 Glucose (Fingerstick) 171 mg/dL (70-99) White Blood Count 7.9 x10^3/uL (4.0-11.0) Red Blood Count 2.15 x10^6/uL (4.30-5.70) Hemoglobin 7.2 g/dL (13.0-17.5) Hematocrit 21.4 % (39.0-53.0) Mean Corpuscular Volume 100 fL (79-100) Mean Corpuscular Hemoglobin 34 pg (25-35) Mean Corpuscular Hemoglobin Concent 34 g/dL (31-37) Red Cell Distribution Width 20.4 % (11.5-14.5) Platelet Count 163 x10^3/uL (140-400) Sodium Level 141 mmol/L (136-145) Potassium Level 4.2 mmol/L (3.5-5.1) Chloride Level 100 mmol/L (98-107) Carbon Dioxide Level 28 mmol/L (21-32) Anion Gap 13 (6-14) Blood Urea Nitrogen 47 mg/dL (8-26) Creatinine 6.1 mg/dL (0.7-1.3) Estimated GFR (Cockcroft-Gault) 8.9 BUN/Creatinine Ratio 8 (6-20) Glucose Level 154 mg/dL (70-99) Calcium Level 8.6 mg/dL (8.5-10.1) Phosphorus Level 5.1 mg/dL (2.6-4.7) Magnesium Level 2.3 mg/dL (1.8-2.4) Total Bilirubin 0.7 mg/dL (0.2-1.0) Aspartate Amino Transf (AST/SGOT) 20 U/L (15-37) Alanine Aminotransferase (ALT/SGPT) 45 U/L (16-63) Alkaline Phosphatase 128 U/L (46-116) Total Protein 5.5 g/dL (6.4-8.2) Albumin 2.4 g/dL (3.4-5.0) Albumin/Globulin Ratio 0.8 (1.0-1.7) Prothrombin Time 16.7 SEC (11.7-14.0) Prothromb Time International Ratio 1.4 (0.8-1.1) Review of Systems Constitutional: yes: other (CONFUSED) Physical Exam General Appearance: no apparent distress Skin: warm Respiratory: decreased breath sounds Heart: S1S2 Abdomen: soft, bowel sounds present Genitourinary: bladder flat Extremities: pulses present Neurology: alert, confused Assessment Assessment IMP ANEMIA IRON DEFICIENCY REACTIVE LEUCOCYTOSIS ESRD GI BLEEDING-S/P COILING ENCEPHALOPATHY AFIB SEVERE CHRONIC ANTICOAGULATION DM II HTN PLAN GI EVAL AND TX PRBC NEEDED ASHER HD TODAY UF TO TW IV VENOFER WILL FOLLOW JONAS MACDONALD MD Oct 29, 2020 10:38
--- NOTE | 2020-10-29 11:20 | NUR ---
0730 All am meds held at this time. Call from dialysis nurse-will be down in 15 min to start procedure. Reported per shift RN did not sleep most of night. Dzes at itervals of 15-45" Neuro w/o much change No observed symptoms w exception of periods of forgetfulness
--- NOTE | 2020-10-29 15:09 | NUR ---
SS following up with discharge planning. SS reviewed pt chart and discussed with pt RN. Pt is currently requiring oxygen at two liters nasal canula. COVID19 negative. Pt on clear liquid diet. Pt transferred to room 552. Odalis JACOBSON, to follow.
[2020-10-29] MEDS ORDERED: GABAPENTIN 300 MG CAPSULE. PO SCH (21:00)
[2020-10-29] MEDS: ATORVASTATIN CALCIUM 40 MG TABLET. PO SCH (21:51)
[2020-10-30 02:50] VITALS: BP 102/52
[2020-10-30 07:06] LABS: CALCIUM 8.8 mg/dL (8.5-10.1); CREATININE 4.5 mg/dL (0.7-1.3); GFR 12.6; POTASSIUM 4.1 mmol/L (3.5-5.1)
[2020-10-30 07:13] LABS: HEMATOCRIT 22.5 % (39.0-53.0); HEMOGLOBIN 7.5 g/dL (13.0-17.5); RED BLOOD COUNT 2.22 x10^6/uL (4.30-5.70); RED CELL DISTRIBUTION WIDTH 22.5 % (11.5-14.5); WHITE BLOOD COUNT 8.4 x10^3/uL (4.0-11.0)
[2020-10-30 08:00] VITALS: BP 97/25
[2020-10-30] MEDS: INSULIN LISPRO 300 UNITS/3 ML VIAL. SQ SCH ×3 (08:00→18:35)
--- NOTE | 2020-10-30 08:03 | PDOC ---
[employer] PROGRESS NOTE Date of Service DOS: DATE: 10/30/20 TIME: 08:01 Chief Complaint Chief Complaint A/P: Rectal bleeding - possibly from AVM. Acute anemia - large drop from GI bleed. GI consulted. NM bleed scan showed bleed and responded well to coil embolization by IR. Status post 4 unit PRBC and 3 unit FFP. 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 PAD of left lower extremity - 04/15/2020 - s/p left popliteal angioplasty and stenting and left posterior tibial balloon angioplasty History of end-stage renal disease on hemodialysis Chronic congestive heart failure combined systolic and diastolic dysfunction EF 45% History of atrial fibrillation and prior pulmonary embolism on chronic anticoagulation with Coumadin Essential hypertension Dyslipidemia - cont statin DM2 with Hyperglycemia - sliding scale Leukocytosis - stress related, likely Severe aortic stenosis - Calculated aortic valve maximum pressure gradient of 58 mmHg and mean pressure gradient of 40 mmHg Moderate eccentric aortic regurgitation. Pulmonary HTN - RVSP 40 mm Hg Transaminitis - unclear etiology, likely related to hypovolemia, will monitor trend Severe protein calorie malnutrition - renal diet FEN - Clear liquid diet PPX - SCDs, PPI FULL CODE Dispo - inpatient History of Present Illness History of Present Illness Mr Castellanos is an 80 yo male with a past medical history DVT/PE, PAD, Gout, BPH, OA, [place], atrial fibrillation, CHF, diabetes, ESRD (MWF) presents for evaluation of rectal bleeding. Patient is on Coumadin for his atrial fibrillation and Hx of PE/DVT. Prior to arrival patient passed several large clots per rectum. Patient denies any associated abdominal pain, but does note he is little more short of breath and fatigue which has gotten worse over the past couple of days. WBC 11.7, Hb 8.7, platelets 228, INR 2.5, PTT 61 NA 139, K5.1, BUN 60, CR 7.6, glucose 133 bilirubin 0.5, AST 54, ALT 112 alk phos decreased to 62, albumin 2.9, troponin 0 EKG regular rhythm and rate around 67bpm. No acute ST segment changes or T WI. After another bloody bowel movement repeat hemoglobin was 6.1. 10/28/2020: Afebrile. Had bleeding scan yesterday that showed active GI bleeding site is identified within the ascending colon and hepatic flexure and proximal transverse colon. Active bleeding treated with coil embolization. Hemoglobin improved to 7.9 yesterday, but dropped to 6.8 today. Because INR still elevated will complete FFP for reversal agent, and transfuse additional 1 unit PRBC. Discussed with RN. Critical care time 30 minutes spent reviewing charts, labs, reviewing imaging, discussion with RN. 10/29/2020: Afebrile. Breathing comfortably on 2 L nasal cannula. INR 1.4 today, Hb 7.2 today. Bleeding seems to have clinically ceased. Per GI, will hold warfarin for at least 1 week due to diverticulosis or AVM as possible cause of bleeding. He received hemodialysis today. He is okay to transfer out of ICU and initiate clear liquid diet. Critical care time 30 minutes spent reviewing charts, labs, reviewing imaging, discussion with RN. Transferred from ICU in improved condition. He is a little more alert asking for gabapentin. Still thinks he came in last night. Hb 7.5. Vital signs improved BP still on the low side. Vitals/I&O Vitals/I&O: Vital Signs Date Time Temp Pulse Resp B/P (MAP) Pulse Ox O2 Delivery O2 Flow Rate FiO2 10/30/20 02:50 98.7 79 18 102/52 (69) 94 Room Air 98.7 10/29/20 14:00 2.0 I & O 10/29/20 10/29/20 10/30/20 15:00 23:00 07:00 Intake Total 150 ml 120 ml 0 ml Output Total 0 ml Balance 150 ml 120 ml 0 ml Physical Exam General: Alert, Cooperative, No acute distress Heart: Regular rate Lungs: Clear Abdomen: Normal bowel sounds, Soft, No tenderness Extremities: No clubbing Skin: No breakdown Labs Labs: Laboratory Tests Test 10/29/20 18:31 10/30/20 05:50 10/30/20 05:54 Glucose (Fingerstick) 165 mg/dL (70-99) 165 mg/dL (70-99) White Blood Count 8.4 x10^3/uL (4.0-11.0) Red Blood Count 2.22 x10^6/uL (4.30-5.70) Hemoglobin 7.5 g/dL (13.0-17.5) Hematocrit 22.5 % (39.0-53.0) Mean Corpuscular Volume 102 fL (79-100) Mean Corpuscular Hemoglobin 34 pg (25-35) Mean Corpuscular Hemoglobin Concent 33 g/dL (31-37) Red Cell Distribution Width 22.5 % (11.5-14.5) Platelet Count 201 x10^3/uL (140-400) Sodium Level 140 mmol/L (136-145) Potassium Level 4.1 mmol/L (3.5-5.1) Chloride Level 101 mmol/L (98-107) Carbon Dioxide Level 29 mmol/L (21-32) Anion Gap 10 (6-14) Blood Urea Nitrogen 28 mg/dL (8-26) Creatinine 4.5 mg/dL (0.7-1.3) Estimated GFR (Cockcroft-Gault) 12.6 Glucose Level 160 mg/dL (70-99) Calcium Level 8.8 mg/dL (8.5-10.1) Assessment and Plan Assessmemt and Plan Problems Medical Problems: (1) ESRD (end stage renal disease) Status: Acute (2) Rectal bleeding Status: Acute Comment Review of Relevant I have reviewed the following items juventino (where applicable) has been applied. Medications: Current Medications Medications (Trade) Dose Ordered Sig/Janee Route PRN Reason Start Time Stop Time Status Last Admin Dose Admin Atorvastatin Calcium (Lipitor) 40 mg QHS PO 10/29/20 21:00 10/29/20 21:51 Gabapentin (Neurontin) 300 mg BID PO 10/29/20 21:00 10/29/20 21:51 Justifications for Admission Other Justification limb ischemia TOI HERNANDEZ MD Oct 30, 2020 08:03
[2020-10-30] MEDS ORDERED: MIDODRINE 5 MG TABLET PO PRN (09:00)
[2020-10-30] MEDS: PANTOPRAZOLE IV PUSH 40 MG VIAL. IVP SCH (09:25)
[2020-10-30] MEDS: SEVELAMER CARBONATE 800 MG TABLET. PO SCH ×3 (09:28→17:09)
[2020-10-30] MEDS: GABAPENTIN 100 MG CAPSULE. PO SCH ×3 (09:28→20:53)
--- NOTE | 2020-10-30 10:37 | PDOC ---
Renal-Progress Notes Subjective Notes Notes NO NEW COMPLAINTS History of Present Illness Hx of present illness FEELING BETTER, TRANSFERRED OUT OF ICU Vitals Vitals Vital Signs Date Time Temp Pulse Resp B/P (MAP) Pulse Ox O2 Delivery O2 Flow Rate FiO2 10/30/20 02:50 98.7 79 18 102/52 (69) 94 Room Air 98.7 10/29/20 14:00 2.0 Weight Weight [ ] I.O. Intake and Output Intake and Output 10/30/20 07:00 Intake Total 270 ml Output Total 0 ml Balance 270 ml Intake Oral 270 ml Output Urine Total 0 ml # Bowel Movements 3 Labs Labs Laboratory Tests Test 10/29/20 18:31 10/30/20 05:50 10/30/20 05:54 Glucose (Fingerstick) 165 mg/dL (70-99) 165 mg/dL (70-99) White Blood Count 8.4 x10^3/uL (4.0-11.0) Red Blood Count 2.22 x10^6/uL (4.30-5.70) Hemoglobin 7.5 g/dL (13.0-17.5) Hematocrit 22.5 % (39.0-53.0) Mean Corpuscular Volume 102 fL (79-100) Mean Corpuscular Hemoglobin 34 pg (25-35) Mean Corpuscular Hemoglobin Concent 33 g/dL (31-37) Red Cell Distribution Width 22.5 % (11.5-14.5) Platelet Count 201 x10^3/uL (140-400) Sodium Level 140 mmol/L (136-145) Potassium Level 4.1 mmol/L (3.5-5.1) Chloride Level 101 mmol/L (98-107) Carbon Dioxide Level 29 mmol/L (21-32) Anion Gap 10 (6-14) Blood Urea Nitrogen 28 mg/dL (8-26) Creatinine 4.5 mg/dL (0.7-1.3) Estimated GFR (Cockcroft-Gault) 12.6 Glucose Level 160 mg/dL (70-99) Calcium Level 8.8 mg/dL (8.5-10.1) Review of Systems Constitutional: yes: other (CONFUSED) Physical Exam General Appearance: no apparent distress Skin: warm Respiratory: decreased breath sounds Heart: S1S2 Abdomen: soft, bowel sounds present Genitourinary: bladder flat Extremities: pulses present Neurology: alert, confused Assessment Assessment IMP ANEMIA-STABLE, NO MORE BLOOD LOSS IRON DEFICIENCY REACTIVE LEUCOCYTOSIS ESRD GI BLEEDING-S/P COILING ENCEPHALOPATHY AFIB SEVERE CHRONIC ANTICOAGULATION DM II HTN PLAN GI EVAL AND TX PRBC NEEDED [facility] HD TOMORROW S/P VENOFER AND ON ARANESP WILL FOLLOW JONAS MACDONALD MD Oct 30, 2020 10:37
--- NOTE | 2020-10-30 10:50 | NUR ---
SW following. Discussed with RN, transfer from ICU. Pt originally from [facility]. Therapy reordered for today. Anticipate return to [facility] in the next day or two. SW will continue to follow.
[2020-10-30 11:00] VITALS: BP 97/47
--- NOTE | 2020-10-30 11:23 | PDOC ---
Date of Service: DATE: 10/30/20 TIME: 11:18 Subjective: Subjective: Talkative but confused. Says he'll be here for two more weeks and needs benzine gas. Objective: Objective: D/w nurse - brown stool w/ some red blood yesterday. Vital Signs: Vital Signs Date Time Temp Pulse Resp B/P (MAP) Pulse Ox O2 Delivery O2 Flow Rate FiO2 10/30/20 08:00 98.7 91 16 97/25 (49) 91 Room Air 98.7 10/29/20 14:00 2.0 Labs: Laboratory Tests Test 10/29/20 18:31 10/30/20 05:50 10/30/20 05:54 Glucose (Fingerstick) 165 mg/dL 165 mg/dL White Blood Count 8.4 x10^3/uL Red Blood Count 2.22 x10^6/uL Hemoglobin 7.5 g/dL Hematocrit 22.5 % Mean Corpuscular Volume 102 fL Mean Corpuscular Hemoglobin 34 pg Mean Corpuscular Hemoglobin Concent 33 g/dL Red Cell Distribution Width 22.5 % Platelet Count 201 x10^3/uL Sodium Level 140 mmol/L Potassium Level 4.1 mmol/L Chloride Level 101 mmol/L Carbon Dioxide Level 29 mmol/L Anion Gap 10 Blood Urea Nitrogen 28 mg/dL Creatinine 4.5 mg/dL Estimated GFR (Cockcroft-Gault) 12.6 Glucose Level 160 mg/dL Calcium Level 8.8 mg/dL PE: GEN: NAD LUNGS: CTAB anteriorly HEART: RR ABD: S/ND/NT NEURO/PSYCH: pleasantly confused A/P: Lower GI bleed s/p right colic artery coil embolization Anemia - stable, did require transfusions H/o A Fib anticoagulated w/ Coumadin - held - INR improved w/ FFP ESRD on HD, AMS COVID negative -- Confused. Full liquids. Hold Coumadin x 1 week. Justicifation of Admission Dx: Justifications for Admission: Justification of Admission Dx: Yes TONY FUENTES Oct 30, 2020 11:23
[2020-10-30 15:00] VITALS: BP 103/33
[2020-10-30 19:00] VITALS: BP 92/35
[2020-10-30] MEDS: ATORVASTATIN CALCIUM 40 MG TABLET. PO SCH (20:53)
[2020-10-30 23:00] VITALS: BP 95/49
[2020-10-31 03:00] VITALS: BP 112/44
[2020-10-31 06:41] LABS: CALCIUM 8.8 mg/dL (8.5-10.1); CREATININE 5.7 mg/dL (0.7-1.3); GFR 9.6; HEMATOCRIT 22.7 % (39.0-53.0); HEMOGLOBIN 7.7 g/dL (13.0-17.5); POTASSIUM 3.9 mmol/L (3.5-5.1); RED BLOOD COUNT 2.23 x10^6/uL (4.30-5.70); RED CELL DISTRIBUTION WIDTH 22.1 % (11.5-14.5); WHITE BLOOD COUNT 7.5 x10^3/uL (4.0-11.0)
[2020-10-31 07:00] VITALS: BP 131/45
[2020-10-31] MEDS ORDERED: PANTOPRAZOLE 40 MG TABLET.DR. PO SCH (07:30)
[2020-10-31] MEDS: INSULIN LISPRO 300 UNITS/3 ML VIAL. SQ SCH ×3 (08:00→17:00)
[2020-10-31] MEDS: SEVELAMER CARBONATE 800 MG TABLET. PO SCH ×3 (08:00→17:21)
--- NOTE | 2020-10-31 08:56 | PDOC ---
[employer] PROGRESS NOTE Date of Service DOS: DATE: 10/31/20 TIME: 08:55 Chief Complaint Chief Complaint A/P: Rectal bleeding - possibly from AVM. Acute anemia - large drop from GI bleed. GI consulted. NM bleed scan showed bleed and responded well to coil embolization by IR. Status post 4 unit PRBC and 3 unit FFP. 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 PAD of left lower extremity - 04/15/2020 - s/p left popliteal angioplasty and stenting and left posterior tibial balloon angioplasty History of end-stage renal disease on hemodialysis Chronic congestive heart failure combined systolic and diastolic dysfunction EF 45% History of atrial fibrillation and prior pulmonary embolism on chronic anticoagulation with Coumadin Essential hypertension Dyslipidemia - cont statin DM2 with Hyperglycemia - sliding scale Leukocytosis - stress related, likely Severe aortic stenosis - Calculated aortic valve maximum pressure gradient of 58 mmHg and mean pressure gradient of 40 mmHg Moderate eccentric aortic regurgitation. Pulmonary HTN - RVSP 40 mm Hg Transaminitis - unclear etiology, likely related to hypovolemia, will monitor trend Severe protein calorie malnutrition - renal diet FEN - Clear liquid diet PPX - SCDs, PPI FULL CODE Dispo - inpatient History of Present Illness History of Present Illness Mr Castellanos is an 80 yo male with a past medical history provoked DVT/PE, PAD, Gout, BPH, OA, [place], atrial fibrillation, CHF, diabetes, ESRD (MWF) presents for evaluation of rectal bleeding. Patient is on Coumadin for his atrial fi brillation and Hx of PE/DVT. Prior to arrival patient passed several large clots per rectum. Patient denies any associated abdominal pain, but does note he is little more short of breath and fatigue which has gotten worse over the past couple of days. WBC 11.7, Hb 8.7, platelets 228, INR 2.5, PTT 61 NA 139, K5.1, BUN 60, CR 7.6, glucose 133 bilirubin 0.5, AST 54, ALT 112 alk phos decreased to 62, albumin 2.9, troponin 0 EKG regular rhythm and rate around 67bpm. No acute ST segment changes or T WI. After another bloody bowel movement repeat hemoglobin was 6.1. 10/28/2020: Afebrile. Had bleeding scan yesterday that showed active GI bleeding site is identified within the ascending colon and hepatic flexure and proximal transverse colon. Active bleeding treated with coil embolization. Hemoglobin improved to 7.9 yesterday, but dropped to 6.8 today. Because INR still elevated will complete FFP for reversal agent, and transfuse additional 1 unit PRBC. Discussed with RN. Critical care time 30 minutes spent reviewing charts, labs, reviewing imaging, discussion with RN. 10/29/2020: Afebrile. Breathing comfortably on 2 L nasal cannula. INR 1.4 today, Hb 7.2 today. Bleeding seems to have clinically ceased. Per GI, will hold warfarin for at least 1 week due to diverticulosis or AVM as possible cause of bleeding. He received hemodialysis today. He is okay to transfer out of ICU and initiate clear liquid diet. Critical care time 30 minutes spent reviewing charts, labs, reviewing imaging, discussion with RN. 10/30: Transferred from ICU in improved condition. He is a little more alert asking for gabapentin. Still thinks he came in last night. Hb 7.5. Vital signs improved BP still on the lowside. Hb 7.7. Vital signs stable. Mental status improved today. Still somewhat weak. Does need acute rehab. No further blood in stool. GI recommend holding coumadin 1 week while right colic embolization site heals and to monitor CBC. Cont dialysis as scheduled. Monitor stools Vitals/I&O Vitals/I&O: Vital Signs Date Time Temp Pulse Resp B/P (MAP) Pulse Ox O2 Delivery O2 Flow Rate FiO2 10/31/20 07:00 96.5 78 19 131/45 (73) 95 Nasal Cannula 2.0 96.5 I & O 10/30/20 10/30/20 10/31/20 15:00 23:00 07:00 Intake Total 0 ml 0 ml Output Total 0 ml 0 ml Balance 0 ml 0 ml 0 ml Physical Exam General: Alert, Cooperative, No acute distress Heart: Regular rate Lungs: Clear Abdomen: Normal bowel sounds, Soft, No tenderness Extremities: No clubbing Skin: No breakdown Labs Labs: Laboratory Tests Test 10/30/20 12:16 10/30/20 18:14 10/31/20 06:10 10/31/20 08:05 Glucose (Fingerstick) 216 mg/dL (70-99) 179 mg/dL (70-99) 157 mg/dL (70-99) White Blood Count 7.5 x10^3/uL (4.0-11.0) Red Blood Count 2.23 x10^6/uL (4.30-5.70) Hemoglobin 7.7 g/dL (13.0-17.5) Hematocrit 22.7 % (39.0-53.0) Mean Corpuscular Volume 102 fL (79-100) Mean Corpuscular Hemoglobin 34 pg (25-35) Mean Corpuscular Hemoglobin Concent 34 g/dL (31-37) Red Cell Distribution Width 22.1 % (11.5-14.5) Platelet Count 220 x10^3/uL (140-400) Sodium Level 138 mmol/L (136-145) Potassium Level 3.9 mmol/L (3.5-5.1) Chloride Level 100 mmol/L (98-107) Carbon Dioxide Level 30 mmol/L (21-32) Anion Gap 8 (6-14) Blood Urea Nitrogen 37 mg/dL (8-26) Creatinine 5.7 mg/dL (0.7-1.3) Estimated GFR (Cockcroft-Gault) 9.6 Glucose Level 156 mg/dL (70-99) Calcium Level 8.8 mg/dL (8.5-10.1) Assessment and Plan Assessmemt and Plan Problems Medical Problems: (1) ESRD (end stage renal disease) Status: Acute (2) Rectal bleeding Status: Acute Comment Review of Relevant I have reviewed the following items juventino (where applicable) has been applied. Medications: Current Medications Medications (Trade) Dose Ordered Sig/Janee Route PRN Reason Start Time Stop Time Status Last Admin Dose Admin Gabapentin (Neurontin) 100 mg TID PO 10/30/20 09:00 10/30/20 20:53 Sevelamer Carbonate (Renvela) 800 mg TIDWMEALS PO 10/30/20 09:00 10/30/20 17:09 Justifications for Admission Other Justification limb ischemia TOI HERNANDEZ MD Oct 31, 2020 08:56
[2020-10-31] MEDS: GABAPENTIN 100 MG CAPSULE. PO SCH ×2 (09:00→14:00)
[2020-10-31] MEDS ORDERED: GABA-585 PO (10:28)
--- NOTE | 2020-10-31 10:31 | SNU/HH DC ---
DISCHARGE ORDERS DISCHARGE INFORMATION: DISCHARGE DATE: Oct 31, 2020 FINAL DIAGNOSIS Problems Medical Problems: (1) ESRD (end stage renal disease) Status: Acute (2) Rectal bleeding Status: Acute CONDITION ON DISCHARGE: Stable CODE STATUS: Code Status: Full LONG-TERM: SNF STAY <30 DAYS: Yes POST DISCHARGE ORDERS: ACTIVITY ORDERS: Activity as tolerated WEIGHT BEARING STATUS: Other, see below DIET AFTER DISCHARGE: Renal CHECKS AFTER DISCHARGE: CHECKS AFTER DISCHARGE: Check blood sugar, ac/hs FOLLOW-UP: PHYSICIAN FOLLOW-UP: [facility]: Norma [address] [place] [address], [facility] 1 ANTICOAGULATION F/U NEEDED: Hold warfarin until 11/10/2020 then goal INR 2-3 TREATMENT/EQUIPMENT ORDERS: ADAPTIVE EQUIPMENT NEEDED: Walker, Wheelchair RESPIRATORY EQUIPMENT NEEDED: Oxygen Physical Therapy For: Evalulation/Treatment Occupational Therapy For: Evaluation/Treatment DISCHARGE MEDICATIONS: Home Meds Active Scripts Gabapentin (GABAPENTIN ) 100 Mg Capsule, 100 MG PO TID for Neuropathy,tremor for 30 Days, #90 CAP 3 Refills Prov:TOI HERNANDEZ MD 10/31/20 Reported Medications Insulin Aspart (Insulin Aspart) 100 Unit/1 Ml Vial, 100 UNIT SQ TIDWMEALS PRN for hyperglycemia, EACH 100 - 149 0 units 150 - 199 2 units 200 - 249 4 units 250 - 299 7 units 300 - 349 10 units 350 - 399 13 units 400+ 16 units 10/28/20 Albuterol Sulfate (VENTOLIN HFA INHALER) 18 Gm Hfa.aer.ad, 1 PUFF INH QID PRN for SHORTNESS OF BREATH, EACH 0 Refills 10/28/20 Dextrose (GLUCOSE BITS) 1 Gm Tab.chew, 16 GM PO DAILY PRN for hyoglycemia, TAB.CHEW 10/28/20 Carboxymethylcellulose Sodium (THERA TEARS) 1 Each Droperette, 1 EACH OP Q6HRS PRN for DRY EYE, DROP 10/28/20 Sennosides (SENOKOT) 8.6 Mg Tablet, 17.2 MG PO BID for constipation, TAB 10/28/20 Insulin Glargine,Hum.rec.anlog (LANTUS SOLOSTAR) 100 Unit/1 Ml Insuln.pen, 10 UNIT SQ QHS for DM, #15 ML 3 Refills 10/28/20 [renal multivit] No Conflict Check, 1 TAB PO DAILY for supplement 10/28/20 Sevelamer Carbonate (RENVELA) 800 Mg Tablet, 800 MG PO TIDWMEALS for CKD, TAB 10/27/20 Polyethylene Glycol 3350 (POLYETHYLENE GLYCOL 3350) 2,500 Gm Powder, 17 GM PO BID PRN for CONSTIPATION for 30 Days, #527 GM 0 Refills 10/27/20 Omeprazole (OMEPRAZOLE) 20 Mg Capsule.dr, 1 CAP PO DAILY for GERD, #30 CAP 5 Refills 10/27/20 Cyanocobalamin (Vitamin B-12) (B-12) 500 Mcg Tablet, 1 TAB PO DAILY for low iron for 30 Days, #30 TAB 0 Refills 10/27/20 Primidone (MYSOLINE) 50 Mg Tablet, 1 TAB PO QHS for essential tremor for 30 Days, #30 TAB 0 Refills 10/27/20 Midodrine Hcl (MIDODRINE HCL) 5 Mg Tablet, 10 MG PO Tues,Thurs,Sat for hypotension , TAB 10/27/20 Atorvastatin Calcium (ATORVASTATIN CALCIUM) 40 Mg Tablet, 1 TAB PO QHS for hyperlipidemia, #90 TAB 3 Refills 10/27/20 Sertraline Hcl (ZOLOFT) 25 Mg Tablet, 1 TAB PO DAILY for depression, #30 TAB 2 Refills 10/27/20 Cholecalciferol (Vitamin D3) (VITAMIN D3) 1,000 Unit Tablet, 3 TAB PO DAILY for supplement, #30 TAB 5 Refills 10/02/18 Discontinued Reported Medications Calcium Acetate (CALCIUM ACETATE) 667 Mg Tablet, 2 TAB PO TID for GOUT for 30 Days, #180 TAB 0 Refills 10/27/20 Gabapentin (GABAPENTIN) 300 Mg Capsule, 300 MG PO BID for NEUROGENIC PAIN, CAP 10/27/20 Warfarin Sodium (WARFARIN SODIUM) 5 Mg Tablet, 5 MG PO DAILY for AFIB, #30 TAB 10/27/20 ANCELMOFETOI Millan MD Oct 31, 2020 10:31
--- NOTE | 2020-10-31 10:38 | PDOC ---
Date of Service: DATE: 10/31/20 TIME: 10:35 Objective: Objective: D/w nurse - stools w/o blood. Vital Signs: Vital Signs Date Time Temp Pulse Resp B/P (MAP) Pulse Ox O2 Delivery O2 Flow Rate FiO2 10/31/20 07:00 96.5 78 19 131/45 (73) 95 Nasal Cannula 2.0 96.5 Labs: Laboratory Tests Test 10/30/20 12:16 10/30/20 18:14 10/31/20 06:10 10/31/20 08:05 Glucose (Fingerstick) 216 mg/dL 179 mg/dL 157 mg/dL White Blood Count 7.5 x10^3/uL Red Blood Count 2.23 x10^6/uL Hemoglobin 7.7 g/dL Hematocrit 22.7 % Mean Corpuscular Volume 102 fL Mean Corpuscular Hemoglobin 34 pg Mean Corpuscular Hemoglobin Concent 34 g/dL Red Cell Distribution Width 22.1 % Platelet Count 220 x10^3/uL Sodium Level 138 mmol/L Potassium Level 3.9 mmol/L Chloride Level 100 mmol/L Carbon Dioxide Level 30 mmol/L Anion Gap 8 Blood Urea Nitrogen 37 mg/dL Creatinine 5.7 mg/dL Estimated GFR (Cockcroft-Gault) 9.6 Glucose Level 156 mg/dL Calcium Level 8.8 mg/dL PE: GEN: NAD LUNGS: NC 2L HEART: RR per chart ABD: non-distended NEURO/PSYCH: sleeping, did not awaken A/P: Lower GI bleed s/p right colic artery coil embolization Anemia - stable H/o A Fib, ESRD COVID negative -- ADAT. No Coumadin for a week. Dc per primary. Justicifation of Admission Dx: Justifications for Admission: Justification of Admission Dx: Yes TONY FUENTES Oct 31, 2020 10:38
[2020-10-31] MEDS ORDERED: IV NORMAL SALINE 1000ML BAG 1,000 ML IV PRN ×2 (10:45)
[2020-10-31] MEDS ORDERED: ACETAMINOPHEN 500 MG TABLET PO PRN (10:45)
[2020-10-31] MEDS ORDERED: diphenhydrAMINE 50 MG/ML VIAL IV PRN ×2 (10:45)
[2020-10-31] MEDS ORDERED: DIALYSIS PATIENT. MC PRN ×2 (10:45)
[2020-10-31] MEDS ORDERED: LIDOCAINE 1% PF 2 ML VIAL. INJ PRN (10:45)
[2020-10-31] MEDS ORDERED: ALBUMIN HUMAN 25% 200 ML IV PRN (10:45)
[2020-10-31 11:00] VITALS: BP 134/40
--- NOTE | 2020-10-31 11:08 | PDOC ---
Renal-Progress Notes Subjective Notes Notes CONFUSED History of Present Illness Hx of present illness NO ACUTE CHANGES Vitals Vitals Vital Signs Date Time Temp Pulse Resp B/P (MAP) Pulse Ox O2 Delivery O2 Flow Rate FiO2 10/31/20 07:00 96.5 78 19 131/45 (73) 95 Nasal Cannula 2.0 96.5 Weight Weight [ ] I.O. Intake and Output Intake and Output 10/31/20 07:00 Intake Total 0 ml Output Total 0 ml Balance 0 ml Intake Oral 0 ml Output Urine Total 0 ml # Voids 1 # Bowel Movements 1 Labs Labs Laboratory Tests Test 10/30/20 12:16 10/30/20 18:14 10/31/20 06:10 10/31/20 08:05 Glucose (Fingerstick) 216 mg/dL (70-99) 179 mg/dL (70-99) 157 mg/dL (70-99) White Blood Count 7.5 x10^3/uL (4.0-11.0) Red Blood Count 2.23 x10^6/uL (4.30-5.70) Hemoglobin 7.7 g/dL (13.0-17.5) Hematocrit 22.7 % (39.0-53.0) Mean Corpuscular Volume 102 fL (79-100) Mean Corpuscular Hemoglobin 34 pg (25-35) Mean Corpuscular Hemoglobin Concent 34 g/dL (31-37) Red Cell Distribution Width 22.1 % (11.5-14.5) Platelet Count 220 x10^3/uL (140-400) Sodium Level 138 mmol/L (136-145) Potassium Level 3.9 mmol/L (3.5-5.1) Chloride Level 100 mmol/L (98-107) Carbon Dioxide Level 30 mmol/L (21-32) Anion Gap 8 (6-14) Blood Urea Nitrogen 37 mg/dL (8-26) Creatinine 5.7 mg/dL (0.7-1.3) Estimated GFR (Cockcroft-Gault) 9.6 Glucose Level 156 mg/dL (70-99) Calcium Level 8.8 mg/dL (8.5-10.1) Review of Systems Constitutional: yes: other (CONFUSED) Physical Exam General Appearance: no apparent distress Skin: warm Respiratory: decreased breath sounds Heart: S1S2 Abdomen: soft, bowel sounds present Genitourinary: bladder flat Extremities: pulses present Neurology: alert, confused Assessment Assessment IMP ANEMIA-STABLE, NO MORE BLOOD LOSS IRON DEFICIENCY REACTIVE LEUCOCYTOSIS ESRD GI BLEEDING-S/P COILING ENCEPHALOPATHY AFIB SEVERE CHRONIC ANTICOAGULATION DM II HTN PLAN GI EVAL AND TX PRBC NEEDED HD TODAY UF TO TW S/P VENOFER AND ON ARANESP WILL FOLLOW JONAS MACDONALD MD Oct 31, 2020 11:08
--- NOTE | 2020-10-31 11:59 | NUR ---
INDIRA following. Discussed with RN, discharge orders for pt to return to [facility]. INDIRA arranged tentative transport time for 1430. Pt is in dialysis, SW awaiting confirmation of when pt will be done in dialysis to finalize transportation time. Discharge orders faxed to [facility]. RN notified. INDIRA will continue to follow. Addendum: 10/31/20 at 1417 by LAURA JACOBSON [facility] unable to take pt back due to now being on a COVID hold. INDIRA met with pt in dialysis, pt frustrated, SW advised some different facilities, pt told SW to send him wherever. [facility] are fast at accepting pts and getting transportation arranged so INDIRA sent referral. Awaiting acceptance decision. RN notified. Addendum: 10/31/20 at 1518 by LAURA JACOBSON [facility] Transport set up by [facility] for between [id number]. RN notified. [facility] notified pt's .
[2020-10-31 15:00] VITALS: BP 102/49
--- NOTE | 2020-10-31 16:03 | PDOC3 ---
Discharge Summary Visit Information Date of Admission: Oct 27, 2020 Date of Discharge: Oct 31, 2020 Admitting Diagnosis: Acute GI bleed Final Diagnosis Problems Medical Problems: (1) ESRD (end stage renal disease) Status: Acute (2) Rectal bleeding Status: Acute Brief Hospital Course Allergies Allergies Coded Allergies Type Severity Reaction Last Updated Verified sildenafil Allergy Intermediate 04/14/20 Yes lisinopril Adverse Reaction Intermediate itching 04/14/20 Yes niacin Adverse Reaction Intermediate itching 04/14/20 Yes Vital Signs Vital Signs Date Time Temp Pulse Resp B/P (MAP) Pulse Ox O2 Delivery O2 Flow Rate FiO2 10/31/20 11:00 97.7 68 18 134/40 (71) 99 Nasal Cannula 2.0 97.7 Lab Results Laboratory Tests Test 10/29/20 18:31 10/30/20 05:50 10/30/20 05:54 10/30/20 12:16 Glucose (Fingerstick) 165 mg/dL (70-99) 165 mg/dL (70-99) 216 mg/dL (70-99) White Blood Count 8.4 x10^3/uL (4.0-11.0) Red Blood Count 2.22 x10^6/uL (4.30-5.70) Hemoglobin 7.5 g/dL (13.0-17.5) Hematocrit 22.5 % (39.0-53.0) Mean Corpuscular Volume 102 fL (79-100) Mean Corpuscular Hemoglobin 34 pg (25-35) Mean Corpuscular Hemoglobin Concent 33 g/dL (31-37) Red Cell Distribution Width 22.5 % (11.5-14.5) Platelet Count 201 x10^3/uL (140-400) Sodium Level 140 mmol/L (136-145) Potassium Level 4.1 mmol/L (3.5-5.1) Chloride Level 101 mmol/L (98-107) Carbon Dioxide Level 29 mmol/L (21-32) Anion Gap 10 (6-14) Blood Urea Nitrogen 28 mg/dL (8-26) Creatinine 4.5 mg/dL (0.7-1.3) Estimated GFR (Cockcroft-Gault) 12.6 Glucose Level 160 mg/dL (70-99) Calcium Level 8.8 mg/dL (8.5-10.1) Test 10/30/20 18:14 10/31/20 06:10 10/31/20 08:05 10/31/20 11:50 Glucose (Fingerstick) 179 mg/dL (70-99) 157 mg/dL (70-99) 140 mg/dL (70-99) White Blood Count 7.5 x10^3/uL (4.0-11.0) Red Blood Count 2.23 x10^6/uL (4.30-5.70) Hemoglobin 7.7 g/dL (13.0-17.5) Hematocrit 22.7 % (39.0-53.0) Mean Corpuscular Volume 102 fL (79-100) Mean Corpuscular Hemoglobin 34 pg (25-35) Mean Corpuscular Hemoglobin Concent 34 g/dL (31-37) Red Cell Distribution Width 22.1 % (11.5-14.5) Platelet Count 220 x10^3/uL (140-400) Sodium Level 138 mmol/L (136-145) Potassium Level 3.9 mmol/L (3.5-5.1) Chloride Level 100 mmol/L (98-107) Carbon Dioxide Level 30 mmol/L (21-32) Anion Gap 8 (6-14) Blood Urea Nitrogen 37 mg/dL (8-26) Creatinine 5.7 mg/dL (0.7-1.3) Estimated GFR (Cockcroft-Gault) 9.6 Glucose Level 156 mg/dL (70-99) Calcium Level 8.8 mg/dL (8.5-10.1) Laboratory Tests Test 10/30/20 18:14 10/31/20 06:10 10/31/20 08:05 10/31/20 11:50 Glucose (Fingerstick) 179 mg/dL (70-99) 157 mg/dL (70-99) 140 mg/dL (70-99) White Blood Count 7.5 x10^3/uL (4.0-11.0) Red Blood Count 2.23 x10^6/uL (4.30-5.70) Hemoglobin 7.7 g/dL (13.0-17.5) Hematocrit 22.7 % (39.0-53.0) Mean Corpuscular Volume 102 fL (79-100) Mean Corpuscular Hemoglobin 34 pg (25-35) Mean Corpuscular Hemoglobin Concent 34 g/dL (31-37) Red Cell Distribution Width 22.1 % (11.5-14.5) Platelet Count 220 x10^3/uL (140-400) Sodium Level 138 mmol/L (136-145) Potassium Level 3.9 mmol/L (3.5-5.1) Chloride Level 100 mmol/L (98-107) Carbon Dioxide Level 30 mmol/L (21-32) Anion Gap 8 (6-14) Blood Urea Nitrogen 37 mg/dL (8-26) Creatinine 5.7 mg/dL (0.7-1.3) Estimated GFR (Cockcroft-Gault) 9.6 Glucose Level 156 mg/dL (70-99) Calcium Level 8.8 mg/dL (8.5-10.1) Brief Hospital Course Mr Castellanos is an 80 yo male with a past medical history provoked DVT/PE, PAD, Gout, BPH, OA, [place], atrial fibrillation, CHF, diabetes, ESRD (MWF) presents for evaluation of rectal bleeding. Patient is on Coumadin for his atrial fibrillation and Hx of PE/DVT. Prior to arrival patient passed several large clots per rectum. Patient denies any associated abdominal pain, but does note he is little more short of breath and fatigue which has gotten worse over the past couple of days. WBC 11.7, Hb 8.7, platelets 228, INR 2.5, PTT 61 NA 139, K5.1, BUN 60, CR 7.6, glucose 133 bilirubin 0.5, AST 54, ALT 112 alk phos decreased to 62, albumin 2.9, troponin 0 EKG regular rhythm and rate around 67bpm. No acute ST segment changes or T WI. After another bloody bowel movement repeat hemoglobin was 6.1. 10/28/2020: Afebrile. Had bleeding scan yesterday that showed active GI bleeding site is identified within the ascending colon and hepatic flexure and proximal transverse colon. Active bleeding treated with coil embolization. Hemoglobin improved to 7.9 yesterday, but dropped to 6.8 today. Because INR still elevated will complete FFP for reversal agent, and transfuse additional 1 unit PRBC. Discussed with RN. Critical care time 30 minutes spent reviewing charts, labs, reviewing imaging, discussion with RN. 10/29/2020: Afebrile. Breathing comfortably on 2 L nasal cannula. INR 1.4 today, Hb 7.2 today. Bleeding seems to have clinically ceased. Per GI, will hold warfarin for at least 1 week due to diverticulosis or AVM as possible cause of bleeding. He received hemodialysis today and advanced liquid diet 10/30: Transferred from ICU in improved condition. He is a little more alert ask ing for gabapentin. Still thinks he came in last night. Hb 7.5. Vital signs improved BP still on the lowside. Hb 7.7. Vital signs stable. Mental status improved today. Still somewhat weak. Does need acute rehab. No further blood in stool. GI recommend holding coumadin 1 week while right colic embolization site heals and to monitor CBC. Cont dialysis as scheduled. Monitor stools Consults: GI, nephrology Problem list: Acute anemia - large drop from GI bleed. GI consulted. NM bleed scan showed bleed and responded well to coil embolization by IR to right colic artery. Status post 4 unit PRBC and 3 unit FFP. Rectal bleeding - possibly from AVM. 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 PAD of left lower extremity - 04/15/2020 - s/p left popliteal angioplasty and stenting and left posterior tibial balloon angioplasty History of end-stage renal disease on hemodialysis Chronic congestive heart failure combined systolic and diastolic dysfunction EF 45% History of atrial fibrillation and prior pulmonary embolism on chronic anticoagulation with Coumadin - holding at least 1 week Essential hypertension Dyslipidemia - cont statin DM2 with Hyperglycemia - sliding scale Leukocytosis - stress related, likely Severe aortic stenosis - Calculated aortic valve maximum pressure gradient of 58 mmHg and mean pressure gradient of 40 mmHg Moderate eccentric aortic regurgitation. Pulmonary HTN - RVSP 40 mm Hg Transaminitis - unclear etiology, likely related to hypovolemia and GI blood loss and irritation, improved Severe protein calorie malnutrition - renal diet Greater than 30 minutes spent on d/c to SNF Discharge Information Condition at Discharge: Improved Follow Up: Weeks (1) Disposition/Orders: D/C to Another Facility ([facility]) Scheduled Atorvastatin Calcium (Atorvastatin Calcium) 40 Mg Tablet, 1 TAB PO QHS for hyperlipidemia, #90 Ref 3 (Reported) Entered as Reported by: ROSEANNE RAMOS on 10/27/20 0309 Last Taken: Unknown Dose on 10/26/20 Last Action: Continued on 10/29/20 2 036 by JAY FRAUSTO Cholecalciferol (Vitamin D3) (Vitamin D3) 1,000 Unit Tablet, 3 TAB PO DAILY for supplement, #30 Ref 5 (Reported) Entered as Reported by: Elgin Hanna on 10/02/18 0947 Last Action: Reviewed on 10/27/20308 by ROSEANNE RAMOS Cyanocobalamin (Vitamin B-12) (B-12) 500 Mcg Tablet, 1 TAB PO DAILY for low iron for 30 Days, #30 Ref 0 (Reported) Entered as Reported by: ROSEANNE RAMOS on 10/27/20308 Last Taken: Unknown Dose on 10/26/20 Last Action: New Order on 10/27/20308 by ROSEANNE RAMOS Gabapentin (Gabapentin ) 100 Mg Capsule, 100 MG PO TID for Neuropathy,tremor for 30 Days, #90 Ref 3 Prescribed by: TOI HERNANDEZ MD on 10/31/20 1028 Insulin Glargine,Hum.rec.anlog (Lantus Solostar) 100 Unit/1 Ml Insuln.pen, 10 UNIT SQ QHS for DM, #15 Ref 3 (Reported) Entered as Reported by: MACARENA LARA on 10/28/20627 Last Action: New Order on 10/28/20627 by MACARENA LARA Midodrine Hcl (Midodrine Hcl) 5 Mg Tablet, 10 MG PO Tues,Thurs,Sat for hypo tension , (Reported) Entered as Reported by: ROSEANNE RAMOS on 10/27/20308 Last Taken: Unknown Dose on 10/25/20 Last Action: Continued on 10/30/20 0849 by TOI HERNANDEZ MD Omeprazole (Omeprazole) 20 Mg Capsule.dr, 1 CAP PO DAILY for GERD, #30 Ref 5 (Reported) Entered as Reported by: ROSEANNE RAMOS on 10/27/20308 Last Taken: Unknown Dose on 10/26/20 Last Action: New Order on 10/27/20308 by ROSEANNE RAMOS Primidone (Mysoline) 50 Mg Tablet, 1 TAB PO QHS for essential tremor for 30 Days, #30 Ref 0 (Reported) Entered as Reported by: ROSEANNE RAMOS on 10/27/20308 Last Taken: Unknown Dose on 10/26/20 Last Action: New Order on 10/27/20308 by ROSEANNE RAMOS Sennosides (Senokot) 8.6 Mg Tablet, 17.2 MG PO BID for constipation, (Reported) Entered as Reported by: MACARENA LARA on 10/28/20630 Last Action: New Order on 10/28/20630 by MACARENA LARA Sertraline Hcl (Zoloft) 25 Mg Tablet, 1 TAB PO DAILY for depression, #30 Ref 2 (Reported) Entered as Reported by: ROSEANNE RAMOS on 10/27/20308 Last Taken: Unknown Dose on 10/26/20 Last Action: New Order on 10/27/20308 by ROSEANNE RAMOS Sevelamer Carbonate (Renvela) 800 Mg Tablet, 800 MG PO TIDWMEALS for CKD, (Reported) Entered as Reported by: ROSEANNE RAMOS on 10/27/20308 Last Taken: Unknown Dose on 10/26/20 Last Action: Continued on 10/30/20848 by TOI HERNANDEZ MD [renal multivit] , 1 TAB PO DAILY for supplement, (Reported) Entered as Reported by: MACARENA LARA on 10/28/20614 Last Action: New Order on 10/28/20614 by MACARENA LARA Scheduled PRN Albuterol Sulfate (Ventolin Hfa Inhaler) 18 Gm Hfa.aer.ad, 1 PUFF INH QID PRN for SHORTNESS OF BREATH, Ref 0 (Reported) Entered as Reported by: MACARENA LARA on 10/28/20648 Last Action: New Order on 10/28/20648 by MACARENA LARA Carboxymethylcellulose Sodium (Thera Tears) 1 Each Droperette, 1 EACH OP Q6HRS PRN for DRY EYE, (Reported) Entered as Reported by: MACARENA LARA on 10/28/20637 Last Action: New Order on 10/28/20637 by MACARENA LARA Dextrose (Glucose Bits) 1 Gm Tab.chew, 16 GM PO DAILY PRN for hyoglycemia, (Reported) Entered as Reported by: MACARENA LARA on 10/28/20639 Last Action: New Order on 10/28/20639 by MACARENA LARA Insulin Aspart (Insulin Aspart) 100 Unit/1 Ml Vial, 100 UNIT SQ TIDWMEALS PRN f or hyperglycemia, (Reported) 100 - 149 0 units 150 - 199 2 units 200 - 249 4 units 250 - 299 7 units 300 - 349 10 units 350 - 399 13 units 400+ 16 units Entered as Reported by: MACARENA LARA on 10/28/2058 Last Action: Edited on 10/28/20700 by MACARENA LARA Polyethylene Glycol 3350 (Polyethylene Glycol 3350) 2,500 Gm Powder, 17 GM PO BID PRN for CONSTIPATION for 30 Days, #527 Ref 0 (Reported) Entered as Reported by: ROSEANNE RAMOS on 10/27/20308 Last Taken: Unknown Dose on 10/26/20 Last Action: Edited on 10/28/20634 by MACARENA LARA Discontinued Medications Calcium Acetate (Calcium Acetate) 667 Mg Tablet, 2 TAB PO TID for GOUT for 30 Days, #180 Ref 0 (Reported) Entered as Reported by: ROSEANNE RAMOS on 10/27/20308 Last Taken: Unknown Dose on 10/26/20 Last Action: New Order on 10/27/20308 by ROSEANNE RAMOS Gabapentin (Gabapentin) 300 Mg Capsule, 300 MG PO BID for NEUROGENIC PAIN, (Reported) Entered as Reported by: ROSEANNE RAMOS on 10/27/20308 Last Taken: Unknown Dose on 10/26/20 Last Action: Continued on 10/29/202035 by JAY FRAUSTO Warfarin Sodium (Warfarin Sodium) 5 Mg Tablet, 5 MG PO DAILY for AFIB, #30 (Reported) Entered as Reported by: ROSEANNE RAMOS on 10/27/20300 Last Taken: Unknown Dose on 10/26/20 Last Action: New Order on 10/27/20300 by ROSEANNE RAMOS Justicifation of Admission Dx: Justifications for Admission: Justification of Admission Dx: Yes TOI HERNANDEZ MD Oct 31, 2020 16:03
--- NOTE | 2020-10-31 19:26 | NUR ---
This RN tried multiple times to call report to [facility] to give a transfer report. The line was either busy, got hung up, or was told by an automated response that I was not allowed to leave a message. Patient was transported via wheelchair at approximately 1815. Triple Lumen IJ pulled from right neck, patient tolerated well.
== END 2020-10-31 18:15 | DRG 356 ==
LOC: ER 21:55 → 5 NORTH 10-27 00:50 → 1 WEST ICU 10-27 12:38 → 5 SOUTH 10-29 14:37
PROVIDERS: ADMIT Student in an Organized Health Care Education/Training Program; ATTEND Student in an Organized Health Care Education/Training Program
PROC: B4141ZZ Fluoroscopy of Superior Mesenteric Artery using Low Osmolar Contrast (ICD-10-PCS; 2020-10-27)
PROC: 5A1D70Z Performance of Urinary Filtration, Intermittent, Less than 6 Hours Per Day (ICD-10-PCS; 2020-10-27)
PROC: 30233K1 Transfusion of Nonautologous Frozen Plasma into Peripheral Vein, Percutaneous Approach (ICD-10-PCS; 2020-10-27)
PROC: 30233N1 Transfusion of Nonautologous Red Blood Cells into Peripheral Vein, Percutaneous Approach (ICD-10-PCS; 2020-10-27)
PROC: 04L63DZ Occlusion of Right Colic Artery with Intraluminal Device, Percutaneous Approach (ICD-10-PCS; principal; 2020-10-28)
PROC: 5A1D70Z Performance of Urinary Filtration, Intermittent, Less than 6 Hours Per Day (ICD-10-PCS; 2020-10-29)
PROC: 5A1D70Z Performance of Urinary Filtration, Intermittent, Less than 6 Hours Per Day (ICD-10-PCS; 2020-10-31)
DX: K92.2 Gastrointestinal hemorrhage, unspecified (principal); N18.6 End stage renal disease; E43 Unspecified severe protein-calorie malnutrition; Q27.30 Arteriovenous malformation, site unspecified; D62 Acute posthemorrhagic anemia; G93.40 Encephalopathy, unspecified; I13.2 Hypertensive heart and chronic kidney disease with heart failure and with stage 5 chronic kidney disease, or end stage renal disease; I50.42 Chronic combined systolic (congestive) and diastolic (congestive) heart failure; D72.828 Other elevated white blood cell count; E11.22 Type 2 diabetes mellitus with diabetic chronic kidney disease; E11.42 Type 2 diabetes mellitus with diabetic polyneuropathy; E11.65 Type 2 diabetes mellitus with hyperglycemia; Z68.39 Body mass index [BMI] 39.0-39.9, adult; E61.1 Iron deficiency; E78.00 Pure hypercholesterolemia, unspecified; E78.5 Hyperlipidemia, unspecified; E86.1 Hypovolemia; F32.9 Major depressive disorder, single episode, unspecified; G47.33 Obstructive sleep apnea (adult) (pediatric); I25.10 Atherosclerotic heart disease of native coronary artery without angina pectoris; I27.20 Pulmonary hypertension, unspecified; I35.2 Nonrheumatic aortic (valve) stenosis with insufficiency; I48.91 Unspecified atrial fibrillation; M10.9 Gout, unspecified; N40.0 Benign prostatic hyperplasia without lower urinary tract symptoms; E21.3 Hyperparathyroidism, unspecified; M19.90 Unspecified osteoarthritis, unspecified site; R74.01 Elevation of levels of liver transaminase levels; Z20.822 Contact with and (suspected) exposure to COVID-19; Z96.652 Presence of left artificial knee joint; Z82.49 Family history of ischemic heart disease and other diseases of the circulatory system; Z86.711 Personal history of pulmonary embolism; Z86.718 Personal history of other venous thrombosis and embolism; Z87.891 Personal history of nicotine dependence; Z99.2 Dependence on renal dialysis; Z87.01 Personal history of pneumonia (recurrent); Z88.8 Allergy status to other drugs, medicaments and biological substances; Z91.013 Allergy to seafood
CPT/HCPCS: 36245; 36415; 36430; 36556; 37244; 75726; 76937; 77001; 78278; 80048; 80053; 82962; 83540; 83550; 83735; 84100; 84484; 85007; 85014; 85018; 85025; 85027; 85610; 85730; 86850; 86900; 86901; 86920; 86927; 87426; 93005; 96374; 99152; 99153; A9560; C1713; C1769; C1887; C1892; C1894; C9113; J0882; J1644; J1756; J1815; J3430; J3490; J7050; P9016; P9017; Q9967; U0003; U0005; 99285-25; G0378; J7030